=== PATIENT | male | born 1935 | race Caucasian/White ===

== ENCOUNTER 2016-07-11 18:36 | Emergency (ER) | payer MEDICARE, MEDICAID ==
[~2016-07-11] VITALS: Ht 182.9 cm; Wt 81.6 kg
[~2016-07-11 18:36] MED LIST: ACYC800T57 PO; AMLO10TA PO; AMLO5TAB2 PO; ASP81TEC PO; ASPI-241 PO; ASPI-624 PO; ASPI-875 PO; ASPI325T32 PO; AZIT-21 PO; BETHANECHOL; CEFU250T11 PO; CLOP75TA; CLOP75TA PO; CLOT15CR4 TOP; CYCL5TAB11 PO; DEPAKOTE; DOXY100C2 PO; ECON30CR9 TP; ENXP40I.4 SQ; EXELON; FAMO20TA5 PO; FLOMAX; FRSM40T PO; FURO40TA PO; FURO40TA4 PO; HYDR-1231 PO; HYDR-3583 PO; HYDR1TAB86 PO; ISM30TCR PO; ISOS30TA3 PO; LASIX; LEVO500T69 PO; LOVA40TA2 PO; LRT10T PO; MELATONIN; METO25TA2 PO; NAMENDA; NAPR-243 PO; OMEP-10 PO; ONDAN4ODT PO; PNT40TEC PO; POTA10CA43 PO; POTA10TA86 PO; POTA20TA15 PO; PRD20T PO; PROP1TAB77 PO; RIVA20TA2 PO; SERT25TA PO; SULF-222 PO; SULF1TAB38 PO; TOBRAMYCIN; TRAM50TA2 PO; TRAMADOL; TRM50T PO; [UNRECOGNIZED DRUG - OTHER]
--- OUTSIDE RECORDS SUMMARY | 2016-07-11 18:40 | XMS REPORT | Continuity of Care Document ---
Author Author [facility] Organization [facility] Address Unknown Phone Unavailable Care Team Providers Care Veneer Taper Name Role Phone Gigi Sullivan PCP [phone] Source Comments Some departments are not documenting in the electronic medical record. If you do not see the information that you expected, contact Release of Information in the Health Information Management department at [phone] for further assistance in locating additional records.[facility] Active Allergies and Adverse Reactions Not on File Current Medications Not on file Active Problems Not on file Social History Tobacco Use Types Packs/Day Years Used Date Never Assessed Plan of Care Health Maintenance Due Date Last Done Comments Physical (Comprehensive) 1944 Exam Pertussis Vaccine 1948 Tetanus Vaccine 1954 Shingles Vaccine 1997 Prevnar/Pneumovax (#1) 2002 Influenza Vaccine 02/10/2015 Results from Last 3 Months Not on file
[2016-07-11] MEDS ORDERED: NS IV 1000 ML 1,000 ML IV ONE (18:52)
[2016-07-11 18:53] LABS: BASOPHILS % (AUTO) 0 % (0-10); EOSINOPHILS # (AUTO) 0.4 10^3/uL (0.0-0.3); EOSINOPHILS % (AUTO) 5 % (0-10); LYMPHOCYTES # (AUTO) 2.6 X 10^3 (1.0-4.0); LYMPHOCYTES % (AUTO) 32 % (12-44); MEAN CORPUSCULAR HEMOGLOBIN 31 PG (25-34); MEAN CORPUSCULAR HGB CONC 34 G/DL (32-36); MEAN CORPUSCULAR VOLUME 91 FL (80-99); MEAN PLATELET VOLUME 11.6 FL (7.4-10.4); MONOCYTES # (AUTO) 0.9 X 10^3 (0.0-1.0); MONOCYTES % (AUTO) 11 % (0-12); NEUTROPHILS # (AUTO) 4.3 X 10^3 (1.8-7.8); NEUTROPHILS % (AUTO) 53 % (42-75); PLATELET COUNT 212 10^3/uL (130-400); RED BLOOD COUNT 5.02 10^6/uL (4.35-5.85); RED CELL DISTRIBUTION WIDTH 13.7 % (10.0-14.5); WHITE BLOOD COUNT 8.1 10^3/uL (4.3-11.0)
--- NOTE | 2016-07-11 19:44 | Diagnostic Imaging Report ---
INDICATION: Arm pain, shaking. COMPARISON: March 10, 2016. TECHNIQUE: Single frontal radiograph of the chest dated July 11, 2016. FINDINGS: Pacer device is present with the battery pack overlying the left chest. The cardiac silhouette is within normal limits. No significant pulmonary vascular congestion. Background senescent changes of the lungs are again identified without focal pulmonary opacity. No pleural effusion. No pneumothorax. No acute osseous abnormality. IMPRESSION: Stable appearing examination without acute cardiopulmonary abnormality. Dictated by: Dictated on workstation # [id number]
[2016-07-11 20:00] LABS: INR 1.6 (0.8-1.4); PROTHROMBIN TIME PATIENT 18.9 SEC (12.2-14.7)
[2016-07-11 20:08] LABS: ALANINE AMINOTRANSFERASE 13 U/L (0-55); ALBUMIN 3.9 G/DL (3.2-4.5); ANION GAP 12 MMOL/L (5-14); ASPARTATE AMINO TRANSFERASE 18 U/L (5-34); BILIRUBIN,TOTAL 0.4 MG/DL (0.1-1.0); BLOOD UREA NITROGEN 17 MG/DL (7-18); BUN/CREATININE RATIO 23; CALCIUM 8.5 MG/DL (8.5-10.1); CARBON DIOXIDE 24 MMOL/L (21-32); CHLORIDE 107 MMOL/L (98-107); CREATININE SERUM 0.75 MG/DL (0.60-1.30); GFR ESTIMATED > 60; GLUCOSE 105 MG/DL (70-105); MAGNESIUM 2.2 MG/DL (1.8-2.4); POTASSIUM 4.2 MMOL/L (3.6-5.0); SODIUM 143 MMOL/L (135-145); TOTAL PROTEIN 7.2 G/DL (6.4-8.2)
[2016-07-11 20:09] LABS: hs C REACTIVE PROTEIN 0.24 MG/DL (0.00-0.50)
[2016-07-11 20:15] LABS: MYOGLOBIN SERUM 54.2 NG/ML (10.0-92.0)
[2016-07-11 20:39] LABS: BILIRUBIN,URINE NEGATIVE (NEGATIVE); KETONES,URINE 1+ (NEGATIVE); LEUKOCYTE ESTERASE ,URINE 1+ (NEGATIVE); NITRITE,URINE NEGATIVE (NEGATIVE); PH,URINE 7 (5-9); PROTEIN,URINE NEGATIVE (NEGATIVE); UROBILINOGEN,URINE 4 MG/DL (NORMAL)
--- NOTE | 2016-07-11 21:22 | ED General ---
General Chief Complaint: General Problems/Pain Stated Complaint: SHOULDER AND ARM PAIN Nursing Triage Note: PT TO ED 6 PER EMS W/ C/O SHAKING ALL OVER ET BODY FEELING HEAVY. EMS REPORTS THEY WERE CALLED TO PTS HOME FOR CP BUT PT DENIES CP AT THIS TIME. Nursing Sepsis Screen: No Definite Risk Source of Information: Patient, EMS, Old Records Exam Limitations: No Limitations History of Present Illness Time Seen by Provider: 18:42 Initial Comments This 81-year-old gentleman presents to the emergency room via EMS. The initial call was for chest pain but patient actually denies chest pain. He reports having aches in his shoulders, arms, and legs. EMS reports that he had tremors and was extremely diaphoretic, soaking through his clothes. Patient has a history of paroxysmal atrial fibrillation and has a pacemaker. He reports having some hot and cold flashes about one hour prior to arrival. He has had some remote chest pain months ago. 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 This is a long-standing problem. His primary care provider is Dr. Webb and in his skin care therapist is Dr. Valadez. EMS reported patient was living in deplorable conditions. Allergies and Home Medications Allergies Coded Allergies: No Known Drug Allergies (Unverified , 06/20/13) Home Medications (Reported) (Reported) (Reported) (Reported) (Reported) (Reported) (Reported) (Reported) (Reported) Aspirin 81 Mg Tablet.dr 81 MG PO DAILY (Reported) Econazole Nitrate 30 Gm Cream.gm. 10Days 30 GM TP BID Prescribed by: KATIE FARMER on 06/07/14 1420 Furosemide 40 Mg Tablet 40 MG PO DAILY (Reported) Sertraline HCl 25 Mg Tablet 25 MG PO HS (Reported) Constitutional: see HPI EENTM: no symptoms reported Respiratory: no symptoms reported Cardiovascular: see HPI Gastrointestinal: no symptoms reported Genitourinary: no symptoms reported Musculoskeletal: see HPI Skin: see HPI Psychiatric/Neurological: No Symptoms Reported Past Lykyifj-Upuazo-Jzcxkg Hx Patient Social History Alcohol Use: Denies Use Recreational Drug Use: No Smoking Status: Former Smoker Type Used: Cigarettes Recent Foreign Travel: No Contact w/Someone Who Travel: No Recent Infectious Disease Expo: No Recent Hopitalizations: No Immunizations Up To Date Tetanus Booster (TDap): Unknown Seasonal Allergies Seasonal Allergies: Yes Surgeries HX Surgeries: Yes (RT HIP) Surgeries: Defibrillator, Orthopedic, Pacemaker Respiratory Hx Respiratory Disorders: Yes (CHRONIC DYSPNEA ON EXERTION) Cardiovascular Hx Cardiac Disorders: Yes (Pacemaker/Defibrillator, STENTS, CHF) Cardiac Disorders: Atrial Fibrillation (Paroxysmal), Chronic Edema/Swelling, Coronary Artery Disease Neurological Hx Neurological Disorders: Yes (POSSIBLE STROKE OR TIA ACCORDING TO DAUGHTER) Neurological Disorders: Dementia Reproductive System Hx Reproductive Disorders: No Genitourinary Hx Genitourinary Disorders: Yes (urinary frequency) Genitourinary Disorders: Prostate Problems Gastrointestinal Hx Gastrointestinal Disorders: Yes Gastrointestinal Disorders: Gastroesophageal Reflux Musculoskeletal Hx Musculoskeletal Disorders: Yes (CHRONIC LEG PAIN R>L) Musculoskeletal Disorders: Fractures Endocrine Hx Endocrine Disorders: No HEENT HX ENT Disorders: No Cancer Hx Cancer: No Psychosocial Hx Psychiatric Problems: Yes Behavioral Health Disorders: Depression Integumentary HX Skin/Integumentary Disorder: Yes (SHINGLES RIGHT LEG) Blood Transfusions Hx Blood Disorders: No Adverse Reaction to a Blood Tr: No Family Medical History Significant Family History: Heart Disease, Diabetes Family Medial History: Family history: Cardiovascular disease 09 BROTHER (60 ) Family history: Diabetes mellitus 03 FATHER 09 BROTHER 09 BROTHER Family history: Hypertension 09 SISTER 09 SISTER Stroke 09 SISTER (61 ) Tuberculosis 03 FATHER (67) Physical Exam Vital Signs Vital Sign - Last 12Hours 07/11/16 18:36 Temp 96.5 Pulse 82 Resp 20 B/P 129/88 Pulse Ox 92 O2 Delivery Room Air Capillary Refill : Less Than 3 Seconds General Appearance: No Apparent Distress WD/WN HEENT: PERRL/EOMI Normal ENT Inspection Neck: Normal Inspection Respiratory: Lungs Clear Normal Breath Sounds No Accessory Muscle Use No Respiratory Distress Cardiovascular: No Edema No Murmur Irregularly Irregular Gastrointestinal: Normal Bowel Sounds Non Tender Soft Extremity: Other (Swelling and contractures of the left hand) Neurologic/Psychiatric: Alert Oriented x3 Normal 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 Norm as Tested Motor Weakness (Generalized, more so in the lower extremities) Skin: Normal Color Diaphoresis Progress/Results/Core Measures Results/Orders Lab Results Laboratory Tests Test 07/11/16 18:36 07/11/16 19:34 07/11/16 20:17 07/11/16 21:28 Range/Units Basophils # (Auto) 0.0 0.0-0.1 10^3/uL Basophils (%) (Auto) 0 0-10 % Eosinophils # (Auto) 0.4 H 0.0-0.3 10^3/uL Eosinophils (%) (Auto) 5 0-10 % Hematocrit 46 40-54 % Hemoglobin 15.4 13.3-17.7 G/DL Lymphocytes # (Auto) 2.6 1.0-4.0 X 10^3 Lymphocytes (%) (Auto) 32 12-44 % Mean Corpuscular Hemoglobin 31 25-34 PG Mean Corpuscular Hemoglobin Concent 34 32-36 G/DL Mean Corpuscular Volume 91 80-99 FL Mean Platelet Volume 11.6 H 7.4-10.4 FL Monocytes # (Auto) 0.9 0.0-1.0 X 10^3 Monocytes (%) (Auto) 11 0-12 % Neutrophils # (Auto) 4.3 1.8-7.8 X 10^3 Neutrophils (%) (Auto) 53 42-75 % Platelet Count 212 130-400 10^3/uL Red Blood Count 5.02 4.35-5.85 10^6/uL Red Cell Distribution Width 13.7 10.0-14.5 % White Blood Count 8.1 4.3-11.0 10^3/uL Activated Partial Thromboplast Time 57 H 24-35 SEC Alanine Aminotransferase (ALT/SGPT) 13 0-55 U/L Albumin 3.9 3.2-4.5 G/DL Alkaline Phosphatase 83 40-136 U/L Anion Gap 12 5-14 MMOL/L Aspartate Amino Transf (AST/SGOT) 18 5-34 U/L BUN/Creatinine Ratio 23 Blood Urea Nitrogen 17 7-18 MG/DL C-Reactive Protein High Sensitivity 0.24 0.00-0.50 MG/DL Calcium Level 8.5 8.5-10.1 MG/DL Carbon Dioxide Level 24 21-32 MMOL/L Chloride Level 107 98-107 MMOL/L Creatinine 0.75 0.60-1.30 MG/DL Estimat Glomerular Filtration Rate > 60 Glucose Level 105 70-105 MG/DL INR Comment 1.6 H 0.8-1.4 Lactic Acid Level 2.6 *H 1.5 0.5-2.0 MMOL/L Magnesium Level 2.2 1.8-2.4 MG/DL Myoglobin 54.2 10.0-92.0 NG/ML Potassium Level 4.2 3.6-5.0 MMOL/L Prothrombin Time 18.9 H 12.2-14.7 SEC Sodium Level 143 135-145 MMOL/L Total Bilirubin 0.4 0.1-1.0 MG/DL Total Creatine Kinase 43 30-200 U/L Total Protein 7.2 6.4-8.2 G/DL Troponin I < 0.30 <0.30 NG/ML Urine Bacteria NONE /HPF Urine Bilirubin NEGATIVE NEGATIVE Urine Casts NONE /LPF Urine Clarity CLEAR Urine Color DARK YELLOW Urine Crystals NONE /LPF Urine Culture Indicated NO Urine Glucose (UA) NEGATIVE NEGATIVE Urine Ketones 1+ H NEGATIVE Urine Leukocyte Esterase 1+ H NEGATIVE Urine Mucus SMALL H /LPF Urine Nitrite NEGATIVE NEGATIVE Urine Protein NEGATIVE NEGATIVE Urine RBC 5-10 H /HPF Urine RBC (Auto) 2+ H NEGATIVE Urine Specific [place] 1.010 L 1.016-1.022 Urine Urobilinogen 4 H NORMAL MG/DL Urine WBC 2-5 /HPF Urine pH 7 5-9 Micro Results Microbiology 07/11/16 Blood Culture - Preliminary, Resulted No growth 07/11/16 Blood Culture - Preliminary, Resulted No growth 07/11/16 Influenza Types A,B Antigen (KIEL) - Final, Complete My Orders Orders-TY CASTELLANOS MD Cbc With Automated Diff (07/11/16 18:44) Magnesium (07/11/16 18:44) Chest 1 View, Ap/Pa Only (07/11/16 18:44) Ekg Tracing (07/11/16 18:44) Cardiac Profile 1 (07/11/16 18:44) Comprehensive Metabolic Panel (07/11/16 18:44) Myoglobin Serum (07/11/16 18:44) Protime With Inr (07/11/16 18:44) Partial Thromboplastin Time (07/11/16 18:44) O2 (07/11/16 18:44) Monitor-Rhythm Ecg Trace Only (07/11/16 18:44) Saline Lock/Iv-Start (07/11/16 18:44) Creatine Kinase (07/11/16 18:44) Hs C Reactive Protein (07/11/16 18:52) Ua Culture If Indicated (07/11/16 18:52) Blood Culture (07/11/16 18:52) Influenza A And B Antigens (07/11/16 18:52) Lactic Acid Analyzer (07/11/16 18:52) [place] Cath Insertion (07/11/16 18:52) Ns Iv 1000 Ml (Sodium Chloride 0.9%) (07/11/16 18:52) Medications Given in ED Vital Signs/I&O Blood Pressure Mean: 102 Progress Note : Progress Note Workup was unremarkable and patient was feeling fairly well prior to dismissal. A liter of IV fluids was administered. Patient is functionally not very capable and EMS reported his living conditions were deplorable. Patient would probably be a candidate for placement in a care facility. ECG Initial ECG Impression Date: Jul 11, 2016 Initial ECG Impression Time: 18:56 Initial ECG Rate: 80 Initial ECG Rhythm: A Fib/Flutter Comment Artifact confounds reading. Heart rate is around 80. No ST elevation or depression. Rhythm appears atrial fibrillation. Diagnostic Imaging Diagonstic Imaging: Xray Plain Films/CT/US/NM/MRI: chest Comments Chest x-ray viewed by me and report reviewed. See report below: NAME: NEEL ESQUIVEL [employer] REC#: [id number] PT STATUS: REG ER : 1935 PHYSICIAN: TY CASTELLANOS MD ADMIT DATE: 07/11/16/ER Signed Date of Exam: 07/11/16 CHEST 1 VIEW, AP/PA ONLY INDICATION: Arm pain, shaking. COMPARISON: March 10, 2016. TECHNIQUE: Single frontal radiograph of the chest dated July 11, 2016. FINDINGS: Pacer device is present with the battery pack overlying the left chest. The cardiac silhouette is within normal limits. No significant pulmonary vascular congestion. Background senescent changes of the lungs are again identified without focal pulmonary opacity. No pleural effusion. No pneumothorax. No acute osseous abnormality. IMPRESSION: Stable appearing examination without acute cardiopulmonary abnormality. Dictated by: Dictated on workstation # [id number] Dict: 07/11/161935 Trans: 07/11/162247 [id number] Interpreted by: BETI NGUYỄN MD Electronically signed by:BETI NGUYỄN MD 07/11/16 5302 Departure Impression Impression: Primary Impression: Diaphoresis Additional Impression: Myalgia Disposition: HOME, SELF-CARE Condition: Improved Departure-Patient Inst. Decision time for Depature: 21:00 Referrals: DEBBI WEBB MD (PCP/Family) Primary Care Physician Patient Instructions: NO INSTRUCTIONS GIVEN Add. Discharge Instructions: Follow-up with your primary care provider soon as possible. Stay well- hydrated. Return to emergency room if symptoms worsen. All discharge instructions reviewed with patient and/or family. Voiced understanding. Copy Copies To 1: DEBBI WEBB MD, JOSHUA T MD Jul 11, 2016 21:22
[2016-07-11 22:00] VITALS: BP 143/86
== END 2016-07-11 22:00 | disposition home or self-care (01) ==
LOC: EDUNIT# 18:36 → ER 18:37
DX: R61 Generalized hyperhidrosis (principal); M79.1 Myalgia; I25.10 Atherosclerotic heart disease of native coronary artery without angina pectoris; F03.90 Unspecified dementia, unspecified severity, without behavioral disturbance, psychotic disturbance, mood disturbance, and anxiety; Z95.0 Presence of cardiac pacemaker
CPT/HCPCS: 36415; 71010; 80053; 81000; 82550; 83605; 83735; 83874; 84484; 85025; 85610; 85730; 86141; 87040; 87804; 93005; 96360

== ENCOUNTER 2018-08-07 11:05 | Outpatient (CLI) | payer MEDICARE, MEDICAID ==
[~2018-08-07] VITALS: Ht 182.9 cm; Wt 81.6 kg
[2018-08-07 11:15] VITALS: BP 109/66
[2018-08-07] MEDS ORDERED: WATER (STERILE) FOR INJECTION 10 ML ONE (12:24)
[2018-08-07] MEDS ORDERED: cefTRIAXone 1,000 MG IV (ROCEPHIN) VIAL ONE (12:24)
[2018-08-07] MEDS ORDERED: cefTRIAXone FOR IV USE 1,000 MG in WATER (STERILE) FOR INJECTION 10 ML IV ONE (12:45)
== END 2018-08-07 12:55 | disposition home or self-care (01) ==
LOC: SDC 11:05
PROVIDERS: ATTEND Internal Medicine
DX: N39.0 Urinary tract infection, site not specified (principal)
CPT/HCPCS: 76937; 96374

== ENCOUNTER → 2018-08-07 | Outpatient (CLI) | payer MEDICARE, MEDICAID ==
--- NOTE | 2018-08-07 11:26 | Diagnostic Imaging Report ---
PROCEDURE: US Abdomen, limited. TECHNIQUE: Multiple realtime grayscale images were obtained over the abdomen in various projections. INDICATION: BPH and urinary retention. FINDINGS: The prevoid bladder volume is 127.6 cc. Postvoid bladder volume is 9.5 cc. Neither ureteral jet was visualized. Bladder is otherwise normal in appearance. IMPRESSION: Small post void residual bladder volume, otherwise unremarkable. Dictated by: Dictated on workstation # [id number]
== END ==
LOC: RAD 10:00
PROVIDERS: ATTEND Internal Medicine
DX: N40.0 Benign prostatic hyperplasia without lower urinary tract symptoms (principal); R33.9 Retention of urine, unspecified
CPT/HCPCS: 76705

== ENCOUNTER → 2018-09-06 | Outpatient (CLI) | payer MEDICARE, MEDICAID | LOC: RAD 10:21 | PROVIDERS: ATTEND Internal Medicine Cardiovascular Disease | DX: I08.1 Rheumatic disorders of both mitral and tricuspid valves (principal); I73.9 Peripheral vascular disease, unspecified; I48.2 Chronic atrial fibrillation; E78.2 Mixed hyperlipidemia; I10 Essential (primary) hypertension; I25.10 Atherosclerotic heart disease of native coronary artery without angina pectoris | CPT/HCPCS: 93306 ==

== ENCOUNTER → 2018-09-19 | Outpatient (CLI) | payer MEDICARE, MEDICAID ==
--- NOTE | 2018-09-19 16:40 | Diagnostic Imaging Report ---
PROCEDURE: CT abdomen and pelvis without contrast. TECHNIQUE: Multiple contiguous axial images were obtained through the abdomen and pelvis without the use of intravenous contrast. Auto Exposure Controls were utilized during the CT exam to meet ALARA standards for radiation dose reduction. INDICATION: Gross hematuria and back pain. COMPARISON: Comparison limited to overlapped images of the upper abdomen obtained at chest CT performed in 2009. FINDINGS: An elongated stone within the right lower pole calyx measured 5.4 mm in length. There is no hydronephrosis. Pelvic detail limited by artifact from right hip prosthesis. A right hemipelvic calcification could be phlebolith or distal right ureteral stone as seen on axial image 73 series 5. This indeterminate calcification measured 2.1 mm. There is no hydroureteronephrosis. No perinephric or periureteric edema. The left kidney is unobstructed and without stone. There is a small exophytic cyst off the lower pole of the right kidney measuring 1 cm. The appendix visualized and is normal. There is no small or large bowel obstruction. No ascites, abscess, hematoma, or other fluid collection. No pneumatosis or free gas. Pancreatic calcifications are most compatible with the sequelae of prior pancreatitis. Some benign scattered hepatosplenic calcified granulomas as well. There are aortoiliac and mesenteric atherosclerotic vascular calcifications without aneurysm. No findings suggestive of end-organ ischemia. The lumbar spine reveals degenerative changes to the discs, endplates, and facets without fracture, malalignment, or acute abnormality. The pelvic osseous structures are nonacute. No abdominal wall defect or hernia. The lung bases are unremarkable. IMPRESSION: 1. Intrarenal calculus in the lower pole calyx on the right. No hydronephrosis. Exophytic renal cortical cysts noted. Right pelvic calcification, indeterminate phlebolith versus distal ureteral stone. No ureteral or collecting system dilatation, however. 2. Normal appendix. Chronic calcifications distributed as described. No focal inflammatory process, ascites, or fluid collection. Dictated by: Dictated on workstation # [id number]
== END ==
LOC: RAD 14:18
PROVIDERS: ATTEND Internal Medicine
DX: N20.0 Calculus of kidney (principal); N28.1 Cyst of kidney, acquired; Z96.641 Presence of right artificial hip joint
CPT/HCPCS: 74176

== ENCOUNTER → 2019-04-08 | Outpatient (CLI) | payer MEDICARE, MEDICAID ==
[~2019-04-08] VITALS: Ht 183 cm; Wt 82.0 kg
[~2019-04-08] MED LIST changes: +REGADENOSON 0.4 MG/5 ML SYR (LEXISCAN) IV ONE
[2019-04-08] MEDS: CATHETER FLUSH 10 ML SYR IV PRN ×2 (09:17→09:54)
[2019-04-08 09:52] VITALS: BP 130/82
--- NOTE | 2019-04-08 12:48 | Diagnostic Imaging Report ---
PROCEDURE: US carotid duplex, bilateral. TECHNIQUE: Multiple real-time grayscale images were obtained over the carotid arteries in various projections, bilaterally. Additional spectral analysis and color Doppler duplex images were also obtained. INDICATION: Coronary artery disease and atrial fibrillation. FINDINGS: There is mild plaquing noted at the carotid bifurcations bilaterally extending into the proximal internal carotid arteries. The velocities are normal bilaterally. No velocity elevation or stenosis is seen. Both vertebral arteries show antegrade flow. IMPRESSION: Mild bilateral carotid plaque. There is no evidence of a hemodynamically significant stenosis. Parameters based on the consensus panel Lopez-Scale and Doppler ultrasound criteria published April 2003, Radiology, Volume 229. DOPPLER (peak systolic velocity M/S Right Left CCA 1.04 .68 ICA Proximal .80 .55 ICA Mid .90 .60 ICA Distal .69 .77 RATIO .90 1.1 ECA .93 .89 VERT .63 .53 Dictated by: Dictated on workstation # [id number]
--- NOTE | 2019-04-08 13:05 | STRESS TEST ---
DATE OF SERVICE: 04/08/2019 LEXISCAN MYOVIEW STRESS TEST REPORT Baseline heart rate is 63. Baseline blood pressure 138/90. Baseline EKG is sinus is atrial fibrillation with left bundle branch block. In summary, the patient was injected with 10.58 mCi of technetium-99 Myoview and the resting images were obtained. Then, the patient received 0.4 mg of Lexiscan followed by 32.1 mCi of technetium-99 Myoview. Throughout the test, there were no EKG changes. The resting and stress images were reviewed and compared in the short axis, horizontal long axis, and vertical long axis views. Review of the images showed no significant ischemia or infarction. SSS is 2, SDS 0. TID value 1.09. On the gated images, the left ventricle appeared to be normal size with hypokinesia of the inferior wall, gated images are unreliable due to underlying atrial fibrillation and left bundle branch block. Calculated ejection fraction 44%. CONCLUSION: 1. The patient tolerated Lexiscan well. 2. Baseline atrial fibrillation persisted during test. 3. No significant ischemia or infarction on SPECT images. 4. Normal left ventricular size with hypokinesia of the inferior wall and inferior apex and inferoseptum, calculated ejection fraction 44%, gated images are unreliable due to underlying atrial fibrillation. Job ID: [id number] DocumentID: [id number] Dictated Date: 04/08/2019 11:29:43 Clerk Specialist Date: 04/08/2019 13:04:22 Dictated By: MINDI MCKAY MD
== END ==
LOC: CARD 08:58
PROVIDERS: ATTEND Physician Assistant
DX: I65.23 Occlusion and stenosis of bilateral carotid arteries (principal); I48.91 Unspecified atrial fibrillation; I25.10 Atherosclerotic heart disease of native coronary artery without angina pectoris; I10 Essential (primary) hypertension; E78.2 Mixed hyperlipidemia
CPT/HCPCS: 78452; 93017; 93880

== ENCOUNTER 2019-04-11 17:59 | Inpatient (IN) | payer MEDICARE, MEDICAID ==
[2019-04-11] VITALS (7 sets, daily range): BP systolic 86–144; BP diastolic 57–80
[~2019-04-11] VITALS: Ht 177 cm; Wt 83.4 kg
[~2019-04-11 17:59] MED LIST changes: -REGADENOSON 0.4 MG/5 ML SYR (LEXISCAN) IV ONE
[2019-04-11] MEDS ORDERED: NS IV 1000 ML 1,000 ML ONE (18:15)
[2019-04-11] MEDS ORDERED: NS IV 1000 ML 1,000 ML IV SCH ×4 (18:15→23:30)
--- NOTE | 2019-04-11 18:18 | ED General ---
General Stated Complaint: ALTERED MENTAL STATUS Source of Information: Patient Exam Limitations: No Limitations (KATIE FARMER APRN) History of Present Illness Date Seen by Provider: Apr 11, 2019 Time Seen by Provider: 18:17 Initial Comments To ER per EMS from home in [place] with reports of altered mental status. Upon EMS arrival he was found to be covered in fecal matter, c/o neck pain and abdominal pain. blood pressure in the 80s and temperature also in the 87 range. Timing/Duration: 12-24 Hours Severity: Moderate Associated Systoms: Weakness (KATIE FARMER APRN) Allergies and Home Medications Allergies Coded Allergies: No Known Drug Allergies (Unverified , 06/20/13) Home Medications Aspirin 81 Mg Tablet.dr, 81 MG PO DAILY, (Reported) Econazole Nitrate 30 Gm Cream.gm., 30 GM TP BID Prescribed by: KATIE FARMER on 06/07/14 1420 Furosemide 40 Mg Tablet, 40 MG PO DAILY, (Reported) Sertraline HCl 25 Mg Tablet, 25 MG PO HS, (Reported) Patient Home Medication List Home Medication List Reviewed: Yes (KATIE FARMER APRN) Review of Systems Review of Systems Constitutional: see HPI, other (to obtain due to altered mental status) EENTM: see HPI Respiratory: no symptoms reported Cardiovascular: no symptoms reported Genitourinary: no symptoms reported Musculoskeletal: no symptoms reported Skin: no symptoms reported Psychiatric/Neurological: No Symptoms Reported Hematologic/Lymphatic: No Symptoms Reported Immunological/Allergic: no symptoms reported (KATIE FARMER APRN) Past Xgxcbmm-Xwkinu-Fehqux Hx Patient Social History Type Used: Cigarettes Former Smoker, Quit: Feb 10, 2011 Recent Hopitalizations: No (KATIE FARMER APRN) Immunizations Up To Date Tetanus Booster (TDap): Unknown (KATIE FARMER APRN) Seasonal Allergies Seasonal Allergies: Yes (KATIE FARMER APRN) Past Medical History Defibrillator, Orthopedic, Pacemaker Atrial Fibrillation, Chronic Edema/Swelling, Coronary Artery Disease Dementia Reproductive Disorders: No Prostate Problems Gastroesophageal Reflux Fractures Depression Adverse Reaction/Blood Tranf: No (KATIE FARMER APRN) Family Medical History Family history: Cardiovascular disease 09 BROTHER (60 ) Family history: Diabetes mellitus 03 FATHER 09 BROTHER 09 BROTHER Family history: Hypertension 09 SISTER 09 SISTER Stroke 09 SISTER (61 ) Tuberculosis 03 FATHER (67) Heart Disease, Diabetes (KATIE FARMER APRN) Physical Exam Vital Signs Vital Signs - First Documented 04/11/19 04/11/19 04/11/19 18:59 19:41 19:48 Temp 33.4 Pulse 100 Resp 24 B/P (MAP) 75/50 (58) Pulse Ox 98 O2 Delivery OxyMask O2 Flow Rate 10.00 (VITA CUEVAS) Vital Signs Capillary Refill : (KATIE FARMER APRN) Height, Weight, BMI Height: 6'0.00" Weight: 180lbs. 0.0oz. 81.367843cw; 24.48 BMI Method:Stated General Appearance: WD/WN, Other (confused but alert, repetitively states "just leave me alone". Cold to the touch, not hypotensive here, initial blood pressure 123/68, heart rate 74. He is in fact covered in fecal matter) Eyes: Bilateral Eye Normal Inspection, Bilateral Eye PERRL, Bilateral Eye EOMI HEENT: PERRL/EOMI, TMs Normal Respiratory: No Accessory Muscle Use, No Respiratory Distress Cardiovascular: Regular Rate, Rhythm, Normal Peripheral Pulses Gastrointestinal: Normal Bowel Sounds, Non Tender, Soft Extremity: Normal Capillary Refill, Normal Inspection Neurologic/Psychiatric: Alert, Oriented x3 Skin: Normal Color, Warm/Dry (KATIE FARMER APRN) Focused Exam Lactate Level 04/11/19 18:30: Lactic Acid Level 13.55*H (VITA CUEVAS) Lactic Acid Level Laboratory Tests Test 04/11/19 18:30 Lactic Acid Level 13.55 MMOL/L (0.50-2.00) *H (VITA CUEVAS) Procedures/Interventions Lumen: triple Central Line Procedure: betadine prep, sterile drapes applied, sterile dressing applied Position: internal jugular (R) Anesthesia: local (they were called except for some) Complications: none Post Position: sutured, good blood return, position confirmed w/ CXR (KATIE FARMER APRN) Care turned over to: Central line placement was questioned and displaced so blood pressure was held over the site and then we repeated the procedure. We clean the site with chlorhexidine, use the usual sterile raking and 2 cc of lidocaine. The abdomen central line introducer needle was observed passing into the right internal jugular under ultrasound guidance. We had good blood return. A guidewire was easily passed on first attempt. The hole was enlarged using the provided 11 blade scalpel by about 2 mm. We then passed the dilator easily. We then passed the central lumen of the triple lumen 20 cm 7 Hungarian central catheter and stitch ed in place in 3 different places. The Biopatch was placed. The guidewire had been removed. The patient tolerates procedure well. A sterile dressing was placed. X-ray was obtained. (VITA CUEVAS) Progress/Results/Core Measures Suspected Sepsis SIRS Temperature: Pulse: Respiratory Rate: Laboratory Tests 04/11/19 18:00: White Blood Count 19.5H Blood Pressure / Mean: 04/11/19 18:30: Lactic Acid Level 13.55*H Laboratory Tests 04/11/19 18:00: Creatinine 1.78H, INR Comment 1.7H, Platelet Count 292, Total Bilirubin 0.5 (KATIE FARMER APRN) Results/Orders Lab Results Laboratory Tests Test 04/11/19 18:00 04/11/19 18:30 Range/Units White Blood Count 19.5 H 4.3-11.0 10^3/uL Red Blood Count 4.92 4.35-5.85 10^6/uL Hemoglobin 15.0 13.3-17.7 G/DL Hematocrit 46 40-54 % Mean Corpuscular Volume 93 80-99 FL Mean Corpuscular Hemoglobin 31 25-34 PG Mean Corpuscular Hemoglobin Concent 33 32-36 G/DL Red Cell Distribution Width 13.0 10.0-14.5 % Platelet Count 292 130-400 10^3/uL Mean Platelet Volume 10.6 H 7.4-10.4 FL Neutrophils (%) (Auto) 78 H 42-75 % Lymphocytes (%) (Auto) 14 12-44 % Monocytes (%) (Auto) 8 0-12 % Eosinophils (%) (Auto) 1 0-10 % Basophils (%) (Auto) 0 0-10 % Neutrophils # (Auto) 15.1 H 1.8-7.8 X 10^3 Lymphocytes # (Auto) 2.7 1.0-4.0 X 10^3 Monocytes # (Auto) 1.6 H 0.0-1.0 X 10^3 Eosinophils # (Auto) 0.1 0.0-0.3 10^3/uL Basophils # (Auto) 0.0 0.0-0.1 10^3/uL Neutrophils % (Manual) 53 % Lymphocytes % (Manual) 25 % Monocytes % (Manual) 8 % Eosinophils % (Manual) 1 % Band Neutrophils 13 % Toxic Granulation 1+ Blood Morphology Comment NORMAL Prothrombin Time 20.5 H 12.2-14.7 SEC INR Comment 1.7 H 0.8-1.4 Activated Partial Thromboplast Time 57 H 24-35 SEC Sodium Level 146 H 135-145 MMOL/L Potassium Level 3.3 L 3.6-5.0 MMOL/L Chloride Level 102 98-107 MMOL/L Carbon Dioxide Level 14 L 21-32 MMOL/L Anion Gap 30 H 5-14 MMOL/L Blood Urea Nitrogen 22 H 7-18 MG/DL Creatinine 1.78 H 0.60-1.30 MG/DL Estimat Glomerular Filtration Rate 37 BUN/Creatinine Ratio 12 Glucose Level 291 H 70-105 MG/DL Calcium Level 9.7 8.5-10.1 MG/DL Corrected Calcium 9.3 8.5-10.1 MG/DL Total Bilirubin 0.5 0.1-1.0 MG/DL Aspartate Amino Transf (AST/SGOT) 21 5-34 U/L Alanine Aminotransferase (ALT/SGPT) 8 0-55 U/L Alkaline Phosphatase 96 40-136 U/L Total Protein 8.5 H 6.4-8.2 GM/DL Albumin 4.5 3.2-4.5 GM/DL Urine Color YELLOW Urine Clarity CLEAR Urine pH 6 5-9 Urine Specific [place] 1.010 L 1.016-1.022 Urine Protein 1+ H NEGATIVE Urine Glucose (UA) NEGATIVE NEGATIVE Urine Ketones NEGATIVE NEGATIVE Urine Nitrite NEGATIVE NEGATIVE Urine Bilirubin NEGATIVE NEGATIVE Urine Urobilinogen NORMAL NORMAL MG/DL Urine Leukocyte Esterase NEGATIVE NEGATIVE Urine RBC (Auto) 1+ H NEGATIVE Urine RBC 2-5 H /HPF Urine WBC 0-2 /HPF Urine Renal Epithelial Cells RARE /HPF Urine Crystals NONE /LPF Urine Bacteria TRACE /HPF Urine Casts NONE /LPF Urine Mucus NEGATIVE /LPF Urine Culture Indicated CULTURE PENDING Lactic Acid Level 13.55 *H 0.50-2.00 MMOL/L (VITA CUEVAS) My Orders Orders - VITA CUEVAS Chest 1 View, Ap/Pa Only (04/11/19 20:23) (VITA CUEVAS Vital Signs/I&O 04/11/19 04/11/19 04/11/19 18:59 19:41 19:48 Temp 33.4 Pulse 100 Resp 24 22 B/P (MAP) 75/50 (58) 101/77 (85) Pulse Ox 98 O2 Delivery OxyMask O2 Flow Rate 10.00 (VITA CUEVAS) Vital Signs/I&O Capillary Refill : (KATIE FARMER APRN) Diagnostic Imaging Diagonstic Imaging: Xray, CT Comments NAME: NEEL ESQUIVEL [facility] REC#: [id number] PT STATUS: REG ER : 1935 PHYSICIAN: KATIE FARMER APRN ADMIT DATE: 04/11/19/ER Signed POSDate of Exam:04/11/19 CT CHEST/ABDOMEN/PELVIS WO PROCEDURE: CT chest, abdomen and pelvis without contrast. TECHNIQUE: Multiple contiguous axial images were obtained through the chest, abdomen, and pelvis without the use of intravenous contrast. Auto Exposure Controls were utilized during the CT exam to meet ALARA standards for radiation dose reduction. INDICATION: Chest and abdominal pain. CT CHEST: There is a 4 x 6 mm parenchymal density in the right upper lobe which is somewhat elongated. This likely represents some scar. This is not calcified and will need to be followed for stability. There is an 8 mm parenchymal density more inferiorly located in the right lower lobe. This has some slight surrounding spiculation. Right middle lobe has a calcified granuloma. There is calcified granuloma in the left upper lobe. There is patchy groundglass infiltrate in the left lower lobe. There is no effusion or pneumothorax. CT ABDOMEN/PELVIS: The liver shows granulomatous calcifications. The gallbladder appears normal. There are granulomatous calcifications in the spleen. Pancreas shows some calcifications which may be related to chronic pancreatitis. No acute pancreatitis is evident. There is a 1 cm low density area in the proximal body of the pancreas. The adrenals are normal. There is a 5 mm nonobstructing calculus in the lower pole of the right kidney. The left kidney is normal. The ureters and bladder are normal. There is a Townsend catheter in the bladder. There is artifact in the pelvis from right hip prosthesis. There is a small bowel intussusception seen in the left mid abdomen. There may be mildly dilated loops of bowel proximal to this and this may be causing a bowel obstruction. There is some spasm and edema of the sigmoid colon. Inflammation of the colon is a possibility. No diverticula are evident. No colon obstruction is evident. There is no free intraperitoneal air or fluid. There is no acute bony abnormality. IMPRESSION: 1. CT of the chest shows multiple bilateral lung nodules, most of which are calcified. There are two nodules in the right lung which are noncalcified. These may be related to granulomatous disease but will need to be followed for stability. 2. In the abdomen there is appearance of a small bowel intussusception in the left mid abdomen which may be causing some obstruction. There is some spasm and/or edema of the sigmoid colon which may be related to a colitis. Recommend continued followup. Dictated by: Dictated on workstation # [id number] Dict: 04/11/191907 Trans: 04/11/191919 [facility] [id number] Interpreted by: IAN KABA MD Electronically signed by: IAN KABA MD 04/11/191919 NAME: NEEL ESQUIVEL [facility] REC#: [id number] PT STATUS: REG ER : 1935 PHYSICIAN: KATIE FARMER APRN ADMIT DATE: 04/11/19/ER Signed POSDate of Exam:04/11/19 CHEST 1 VIEW, AP/PA ONLY INDICATION: Leukocytosis. COMPARISON: 07/11/2016. FINDINGS: The lungs are well aerated. There is mild boxvsk-ctbas-epypqufay infiltrate in the left upper lung. The lungs otherwise appear clear. The heart is not enlarged. Pacemaker on the left shows leads in good position. The heart is mildly enlarged. No evidence of pulmonary edema. No pneumothorax or pleural effusion. IMPRESSION: 1. Cardiomegaly without evidence of failure. 2. There does appear to be mild patchy infiltrate in the left upper lung. Dictated by: Dictated on workstation # [id number] Dict: 04/11/191914 Trans: 04/11/191931 [id number] Interpreted by: ANGIE MORALES MD Electronically signed by: ANGIE MORALES MD 04/11/191931 (KATIE FARMER APRN) Departure Communication (Admissions) Time/Spoke to Admitting Phy: 20:[address] Doherty will admit, consult surgery spoken with Dr. Shoemaker recommends Cipro Flagyl clear liquids at this time, also consult Ryan Parnell as a fine choice Blood pressure was 75 systolic at one point, I did proceed with central line placement right internal jugular. 2130 I spoke with his Jennie, she agrees that he should be DO NOT RESUSCITATE status as he does not want to be resuscitated or on a ventilator. (KATIE FARMER APRN) Impression Primary Impression: Left upper lobe pneumonia Qualified Codes: J18.1 - Lobar pneumonia, unspecified organism Additional Impression: Intussusception Disposition: ADMITTED INPATIENT Condition: Critical Admissions Decision to Admit Reason: Admit from ER (General) Decision to Admit/Date: Apr 11, 2019 Time/Decision to Admit Time: 20:33 (KATIE FARMER APRN) Departure-Patient Inst. Referrals: BRIGID MCGOWAN MD (PCP/Family) Primary Care Physician KATIE FARMER APRN Apr 11, 2019 18:18 VITA LAUGHLIN Apr 11, 2019 20:25 POS
[2019-04-11 18:24] LABS: BASOPHILS % (AUTO) 0 % (0-10); EOSINOPHILS # (AUTO) 0.1 10^3/uL (0.0-0.3); EOSINOPHILS % (AUTO) 1 % (0-10); HEMATOCRIT 46 % (40-54); LYMPHOCYTES # (AUTO) 2.7 X 10^3 (1.0-4.0); LYMPHOCYTES % (AUTO) 14 % (12-44); MEAN CORPUSCULAR HEMOGLOBIN 31 PG (25-34); MEAN CORPUSCULAR HGB CONC 33 G/DL (32-36); MEAN CORPUSCULAR VOLUME 93 FL (80-99); MEAN PLATELET VOLUME 10.6 FL (7.4-10.4); MONOCYTES # (AUTO) 1.6 X 10^3 (0.0-1.0); MONOCYTES % (AUTO) 8 % (0-12); NEUTROPHILS # (AUTO) 15.1 X 10^3 (1.8-7.8); NEUTROPHILS % (AUTO) 78 % (42-75); PLATELET COUNT 292 10^3/uL (130-400); WHITE BLOOD COUNT 19.5 10^3/uL (4.3-11.0)
[2019-04-11 18:30] LABS: INR 1.7 (0.8-1.4); PROTHROMBIN TIME PATIENT 20.5 SEC (12.2-14.7)
[2019-04-11 18:39] LABS: BILIRUBIN,URINE NEGATIVE (NEGATIVE); CLARITY,URINE CLEAR; COLOR,URINE YELLOW; GLUCOSE, URINE (UA) NEGATIVE (NEGATIVE); KETONES,URINE NEGATIVE (NEGATIVE); LEUKOCYTE ESTERASE ,URINE NEGATIVE (NEGATIVE); NITRITE,URINE NEGATIVE (NEGATIVE); PH,URINE 6 (5-9); PROTEIN,URINE 1+ (NEGATIVE)
[2019-04-11 18:58] LABS: ALBUMIN 4.5 GM/DL (3.2-4.5); BILIRUBIN,TOTAL 0.5 MG/DL (0.1-1.0); CALCIUM 9.7 MG/DL (8.5-10.1); CREATININE SERUM 1.78 MG/DL (0.60-1.30); POTASSIUM 3.3 MMOL/L (3.6-5.0); TOTAL PROTEIN 8.5 GM/DL (6.4-8.2)
[2019-04-11 19:04] LABS: BAND NEUTROPHILS 13 %; EOSINOPHILS % (MANUAL) 1 %; LYMPHOCYTES % (MANUAL) 25 %; MONOCYTES % (MANUAL) 8 %; NEUTROPHILS % (MANUAL) 53 %; RBC MORPH NORMAL
[2019-04-11 19:05] LABS: TOXIC GRANULATION/VACUOLAZATIO 1+
--- NOTE | 2019-04-11 19:05 | Diagnostic Imaging Report ---
PROCEDURE: CT cervical spine without contrast. TECHNIQUE: Multiple contiguous axial images were obtained through the cervical spine without the use of intravenous contrast. Sagittal and coronal reformations were then performed. Auto Exposure Controls were utilized during the CT exam to meet ALARA standards for radiation dose reduction. INDICATION: Neck pain. FINDINGS: Sagittal and coronal reformatted images show good alignment of vertebral bodies. Body height is well maintained. There is loss of disc space at C3-C4, C5-C6 and C6-C7. Hypertrophic lipping of the endplates. Mild uncovertebral hypertrophy noted bilaterally at C6-C7 which is causing drja-ps-oipvksay encroachment most severe on the left neural foramen. Mild central canal stenosis. There are no fractures. IMPRESSION: Advanced degenerative cervical disc and facet disease throughout with some mild stenosis of the central canal. Moderate encroachment on the left neural foramen at the C6-C7 level. Dictated by: Dictated on workstation # [id number]
[2019-04-11 19:06] LABS: BACTERIA,URINE TRACE /HPF; WBC,URINE 0-2 /HPF
--- NOTE | 2019-04-11 19:06 | Diagnostic Imaging Report ---
PROCEDURE: CT head without contrast. TECHNIQUE: Multiple contiguous axial images were obtained through the brain without the use of intravenous contrast. Auto Exposure Controls were utilized during the CT exam to meet ALARA standards for radiation dose reduction. INDICATION: Change in mental status The ventricles are normal in size, shape and position. There is no acute parenchymal hemorrhage, edema or mass. There is age-related atrophy. There is no extra-axial mass or hemorrhage. IMPRESSION: No acute abnormality is seen. There is no significant change from a prior study from 11/11/2013. Dictated by: Dictated on workstation # [id number]
[2019-04-11 19:07] LABS: RENAL EPITHELIAL CELLS,URINE RARE /HPF
--- NOTE | 2019-04-11 19:19 | Diagnostic Imaging Report ---
PROCEDURE: CT chest, abdomen and pelvis without contrast. TECHNIQUE: Multiple contiguous axial images were obtained through the chest, abdomen, and pelvis without the use of intravenous contrast. Auto Exposure Controls were utilized during the CT exam to meet ALARA standards for radiation dose reduction. INDICATION: Chest and abdominal pain. CT CHEST: There is a 4 x 6 mm parenchymal density in the right upper lobe which is somewhat elongated. This likely represents some scar. This is not calcified and will need to be followed for stability. There is an 8 mm parenchymal density more inferiorly located in the right lower lobe. This has some slight surrounding spiculation. Right middle lobe has a calcified granuloma. There is calcified granuloma in the left upper lobe. There is patchy groundglass infiltrate in the left lower lobe. There is no effusion or pneumothorax. CT ABDOMEN/PELVIS: The liver shows granulomatous calcifications. The gallbladder appears normal. There are granulomatous calcifications in the spleen. Pancreas shows some calcifications which may be related to chronic pancreatitis. No acute pancreatitis is evident. There is a 1 cm low density area in the proximal body of the pancreas. The adrenals are normal. There is a 5 mm nonobstructing calculus in the lower pole of the right kidney. The left kidney is normal. The ureters and bladder are normal. There is a Townsend catheter in the bladder. There is artifact in the pelvis from right hip prosthesis. There is a small bowel intussusception seen in the left mid abdomen. There may be mildly dilated loops of bowel proximal to this and this may be causing a bowel obstruction. There is some spasm and edema of the sigmoid colon. Inflammation of the colon is a possibility. No diverticula are evident. No colon obstruction is evident. There is no free intraperitoneal air or fluid. There is no acute bony abnormality. IMPRESSION: 1. CT of the chest shows multiple bilateral lung nodules, most of which are calcified. There are two nodules in the right lung which are noncalcified. These may be related to granulomatous disease but will need to be followed for stability. 2. In the abdomen there is appearance of a small bowel intussusception in the left mid abdomen which may be causing some obstruction. There is some spasm and/or edema of the sigmoid colon which may be related to a colitis. Recommend continued followup. Dictated by: Dictated on workstation # [id number]
--- NOTE | 2019-04-11 19:21 | Diagnostic Imaging Report ---
INDICATION: Leukocytosis. COMPARISON: 07/11/2016. FINDINGS: The lungs are well aerated. There is mild kbjqqw-rnfhu-obgwvfben infiltrate in the left upper lung. The lungs otherwise appear clear. The heart is not enlarged. Pacemaker on the left shows leads in good position. The heart is mildly enlarged. No evidence of pulmonary edema. No pneumothorax or pleural effusion. IMPRESSION: 1. Cardiomegaly without evidence of failure. 2. There does appear to be mild patchy infiltrate in the left upper lung. Dictated by: Dictated on workstation # [id number]
--- NOTE | 2019-04-11 19:57 | Diagnostic Imaging Report ---
INDICATION: Central line placement. Comparison with previous exam same date. Right jugular line present. Tip overlies the superior vena cava approximately 3 cm proximal to the cavoatrial junction. The lungs are well-aerated and clear. No pneumothorax or pleural effusion. Heart is mildly enlarged. Pacemaker on the left appears unchanged. IMPRESSION: Satisfactory appearing placement of right jugular line with no evidence of complication. Dictated by: Dictated on workstation # [id number]
[2019-04-11] MEDS ORDERED: NS (IVPB) 250 ML ONE (20:21)
[2019-04-11] MEDS ORDERED: NOREPINEPHRINE 4 MG/4 ML (LEVOPHED) AMP IV ONE (20:22)
--- NOTE | 2019-04-11 20:39 | Diagnostic Imaging Report ---
INDICATION: Follow-up central line placement. FINDINGS: Right central line present, tip is just above the cavoatrial junction. The lungs are well aerated. No pneumothorax or pleural effusion. Mild cardiomegaly with pacemaker present unchanged. IMPRESSION: Satisfactory appearing right jugular central line catheter. Dictated by: Dictated on workstation # [id number]
[2019-04-11] MEDS ORDERED: LEVOFLOXACIN 750 MG/150 ML IV 150 ML IV ONE (20:45)
[2019-04-11] MEDS ORDERED: NOREPINEPHRINE 4 MG in NS (IVPB) 250 ML IV SCH (20:45)
[2019-04-11] MEDS ORDERED: NS IV 1000 ML 2,449.41 ML IV ONE (22:00)
[2019-04-11] MEDS ORDERED: ONDANSETRON 4 MG/2 ML (SDV) Z0FRAN IV PRN (22:00)
[2019-04-11] MEDS ORDERED: fentaNYL INJECTION 100 MCG/2 ML AMP IV PRN (22:00)
[2019-04-11] MEDS ORDERED: EPINEPHrine 1 MG INJECTION 2 MG in NS (IVPB) 250 ML IV SCH (22:00)
[2019-04-11] MEDS: VASOPRESSIN INJECTION 20 UNIT in NORMAL SALINE 100 ML IV SCH (22:11)
[2019-04-11] MEDS ORDERED: NOREPINEPHRINE 4 MG/NS 250 ML DRIP IV SCH ×2 (22:15)
[2019-04-11] MEDS: metroNIDAZOLE 500 MG/100 ML IVPB (PRE-MIX) IV SCH (22:37)
[2019-04-11] MEDS ORDERED: SODIUM BICARB 8.4% 50 MEQ/50 ML VIAL ONE (22:59)
[2019-04-11] MEDS: SODIUM BICARB 8.4% 50 MEQ/50 ML (ABBOTT) SYR IV SCH ×2 (23:11→23:52)
[2019-04-11] MEDS ORDERED: RT-ALBUTEROL SULF 2.5 MG/3 ML PRE-MIX VIAL INH PRN (23:15)
[2019-04-12] VITALS (18 sets, daily range): BP systolic 120–146; BP diastolic 56–109
[2019-04-12] MEDS: POTASSIUM CL 10MEQ/50ML IVPB 50 ML IV SCH ×3 (01:21→06:22)
[2019-04-12 01:42] LABS: BASOPHILS % (AUTO) 0 % (0-10); EOSINOPHILS % (AUTO) 0 % (0-10); HEMATOCRIT 35 % (40-54); HEMOGLOBIN 12.2 G/DL (13.3-17.7); LYMPHOCYTES # (AUTO) 0.2 X 10^3 (1.0-4.0); LYMPHOCYTES % (AUTO) 3 % (12-44); MEAN CORPUSCULAR HEMOGLOBIN 31 PG (25-34); MEAN CORPUSCULAR HGB CONC 35 G/DL (32-36); MEAN CORPUSCULAR VOLUME 90 FL (80-99); MEAN PLATELET VOLUME 9.9 FL (7.4-10.4); MONOCYTES # (AUTO) 0.6 X 10^3 (0.0-1.0); MONOCYTES % (AUTO) 7 % (0-12); NEUTROPHILS # (AUTO) 7.8 X 10^3 (1.8-7.8); NEUTROPHILS % (AUTO) 90 % (42-75); PLATELET COUNT 155 10^3/uL (130-400); RED CELL DISTRIBUTION WIDTH 12.8 % (10.0-14.5); WHITE BLOOD COUNT 8.6 10^3/uL (4.3-11.0)
[2019-04-12 02:02] LABS: ALANINE AMINOTRANSFERASE < 6 U/L (0-55); ALBUMIN 3.3 GM/DL (3.2-4.5); ALKALINE PHOSPHATASE 57 U/L (40-136); BILIRUBIN,TOTAL 0.5 MG/DL (0.1-1.0); BUN/CREATININE RATIO 18; CARBON DIOXIDE 25 MMOL/L (21-32); CHLORIDE 110 MMOL/L (98-107); CREATININE SERUM 1.35 MG/DL (0.60-1.30); GFR ESTIMATED 51; GLUCOSE 78 MG/DL (70-105); PHOSPHORUS 2.2 MG/DL (2.3-4.7); POTASSIUM 3.7 MMOL/L (3.6-5.0); SODIUM 148 MMOL/L (135-145); TOTAL PROTEIN 6.1 GM/DL (6.4-8.2)
[2019-04-12 02:38] LABS: ABG BASE EXCESS 2.3 MMOL/L (-2.5-2.5); ABG OXYGEN SATURATION 99 % (94-100); ABG PCO2 43 MMHG (35-45); ABG PH 7.41 (7.37-7.43); ABG PO2 120 MMHG (79-93); ABG TCO2 27.7 MMOL/L (21.0-31.0)
[2019-04-12 02:42] LABS: ALLENS TEST YES-POS; INSPIRED O2 3L; PATIENT TEMP 37.8; VENTILATOR NO
[2019-04-12 03:57] LABS: BASOPHILS % (AUTO) 0 % (0-10); EOSINOPHILS % (AUTO) 0 % (0-10); HEMATOCRIT 34 % (40-54); HEMOGLOBIN 11.9 G/DL (13.3-17.7); LYMPHOCYTES # (AUTO) 0.3 X 10^3 (1.0-4.0); LYMPHOCYTES % (AUTO) 4 % (12-44); MEAN CORPUSCULAR HEMOGLOBIN 31 PG (25-34); MEAN CORPUSCULAR HGB CONC 35 G/DL (32-36); MEAN CORPUSCULAR VOLUME 90 FL (80-99); MEAN PLATELET VOLUME 9.8 FL (7.4-10.4); MONOCYTES # (AUTO) 0.6 X 10^3 (0.0-1.0); MONOCYTES % (AUTO) 7 % (0-12); NEUTROPHILS # (AUTO) 7.4 X 10^3 (1.8-7.8); NEUTROPHILS % (AUTO) 89 % (42-75); PLATELET COUNT 160 10^3/uL (130-400); RED CELL DISTRIBUTION WIDTH 12.8 % (10.0-14.5); WHITE BLOOD COUNT 8.3 10^3/uL (4.3-11.0)
[2019-04-12 04:15] LABS: CREATININE SERUM 1.51 MG/DL (0.60-1.30); POTASSIUM 4.3 MMOL/L (3.6-5.0)
--- NOTE | 2019-04-12 05:26 | Pulmonary Consultation ---
History of Present Illness History of Present Illness Date of Consultation 04/12/19 05:21 Date of Admission Allergies and Home Medications Allergies Coded Allergies: No Known Drug Allergies (Unverified , 06/20/13) Home Medications Aspirin 81 Mg Tablet.dr, 81 MG PO DAILY, (Reported) Bethanechol Chloride 25 Mg Tablet, 25 MG PO QID, (Reported) Carbidopa/Levodopa 1 Each Tablet, 1 TAB PO TID, (Reported) Celecoxib 100 Mg Capsule, 100 MG PO DAILY, (Reported) Divalproex Sodium 125 Mg Cap.sprink, 125 MG PO TID, (Reported) Econazole Nitrate 30 Gm Cream.gm., 30 GM TP BID Prescribed by: KATIE FARMER on 06/07/14 1420 Furosemide 40 Mg Tablet, 40 MG PO DAILY, (Reported) Furosemide 20 Mg Tablet, 20 MG PO DAILY, (Reported) Pantoprazole Sodium 40 Mg Tablet.dr, 40 MG PO DAILY, (Reported) Rivaroxaban 20 Mg Tablet, 20 MG PO 1700, (Reported) Sertraline HCl 25 Mg Tablet, 25 MG PO HS, (Reported) Sertraline HCl 50 Mg Tablet, 50 MG PO DAILY, (Reported) Tamsulosin HCl 0.4 Mg Cap, 0.4 MG PO HS, (Reported) Past Gdurlqr-Jyawrd-Mkyzfb Hx Patient Social History Type Used: Cigarettes Former Smoker, Quit: Feb 10, 2011 Recent Foreign Travel: No Contact w/Someone Who Travel: No Recent Infectious Disease Expo: No Recent Hopitalizations: No Physical Abuse: No Sexual Abuse: No Mistreated: No Fear: No Immunizations Up To Date Tetanus Booster (TDap): Unknown Seasonal Allergies Seasonal Allergies: No Past Medical History Surgeries: No Defibrillator, Orthopedic, Pacemaker Atrial Fibrillation, Chronic Edema/Swelling, Coronary Artery Disease Dementia Reproductive Disorders: No Prostate Problems Gastroesophageal Reflux Fractures Depression Integumentary: No Adverse Reaction/Blood Tranf: No Family Medical History Family history: Cardiovascular disease 09 BROTHER (60 ) Family history: Diabetes mellitus 03 FATHER 09 BROTHER 09 BROTHER Family history: Hypertension 09 SISTER 09 SISTER Stroke 09 SISTER (61 ) Tuberculosis 03 FATHER (67) Heart Disease, Diabetes Sepsis Event Evaluation Height, Weight, BMI Height: 6'0.00" Weight: 180lbs. 0.0oz. 81.692380zp; 22.00 BMI Method:Stated Exam Exam Vital Signs Date Time Temp Pulse Resp B/P (MAP) Pulse Ox O2 Delivery O2 Flow Rate FiO2 04/12/19 02:33 37.9 80 18 100 Nasal Cannula 2.00 04/12/19 02:00 37.6 78 30 140/73 (95) 100 Nasal Cannula 3.00 04/12/19 01:00 37.1 77 24 130/85 (100) 100 Nasal Cannula 3.00 04/12/19 01:00 77 04/12/19 00:15 36.7 79 23 139/91 (107) 100 Nasal Cannula 3.00 04/12/19 00:00 100 Nasal Cannula 3.00 04/11/19 23:45 36.5 89 144/79 (100) 100 Nasal Cannula 3.00 04/11/19 23:33 Nasal Cannula 3.00 04/11/19 23:12 OxyMask 3.00 04/11/19 23:06 35.5 66 99 04/11/19 23:00 36.5 73 20 113/80 (91) 100 OxyMask 8.00 04/11/19 22:00 36.1 69 27 107/57 (74) 100 OxyMask 8.00 04/11/19 21:30 OxyMask 8.00 04/11/19 21:07 121 04/11/19 21:00 35.5 118 18 86/59 (68) 90 OxyMask 8.00 04/11/19 20:45 96 22 94/62 96 04/11/19 20:32 96 22 94/62 (73) 96 04/11/19 19:48 22 101/77 (85) 98 04/11/19 19:41 33.4 100 24 75/50 (58) 04/11/19 18:59 OxyMask 10.00 I & O 04/12/19 07:00 Intake Total 4400 ml Output Total 175 ml Balance 4225 ml Height & Weight Height: 6'0.00" Weight: 180lbs. 0.0oz. 81.703828ct; 22.00 BMI Method:Stated General Appearance: WD/WN, Other (confused but alert, repetitively states "just leave me alone". Cold to the touch, not hypotensive here, initial blood pressure 123/68, heart rate 74. He is in fact covered in fecal matter) HEENT: PERRL/EOMI, TMs Normal Respiratory: Lungs Clear, No Respiratory Distress Cardiovascular: Regular Rate, Rhythm, Normal Peripheral Pulses Capillary Refill: Greater Than 3 Seconds Extremity: Normal Capillary Refill, Normal Inspection Neurologic/Psychiatric: Alert, Oriented x3 Skin: Normal Color, Warm/Dry Results Lab Laboratory Tests 04/11/19 18:00 04/12/19 01:31 04/12/19 03:48 Assessment/Plan Assessment/Plan MARISOL PNA Hypotension - improved Metabolic lactic acidosis Dehydration Intussusception -surgery following Diarrhea -Check CdiKENDRA Ann DO Apr 12, 2019 05:26 POS
[2019-04-12] MEDS ORDERED: SODIUM PHOSPHATE INJ 30 MM in NS (IVPB) 250 ML IV ONE (05:30)
[2019-04-12] MEDS ORDERED: LACTATED RINGERS 1,000 ML IV SCH (05:30)
[2019-04-12] MEDS ORDERED: PIPERACILLIN/TAZOBACTAM (BULK) 4.5 GM in NS (IVPB) 100 ML IV ONE (05:30)
[2019-04-12] MEDS ORDERED: NS (IVPB) 100 ML ONE (05:42)
[2019-04-12] MEDS ORDERED: PIPERACILLIN/TAZO 4.5 GM VIAL (ZOSYN) IV ONE (05:42)
[2019-04-12] MEDS: LACTATED RINGERS 1,000 ML IV SCH ×3 (06:22→18:38)
[2019-04-12] MEDS: MAGNESIUM 1 GM/100 ML IVPB 100 ML IV SCH (06:22)
[2019-04-12] MEDS: KCL 20 MEQ TAB (K-DUR) PO SCH (06:22)
[2019-04-12] MEDS: VASOPRESSIN INJECTION 20 UNIT in NORMAL SALINE 100 ML IV SCH (06:23)
[2019-04-12] MEDS: metroNIDAZOLE 500 MG/100 ML IVPB (PRE-MIX) IV SCH ×2 (06:23→13:50)
--- NOTE | 2019-04-12 06:57 | Diagnostic Imaging Report ---
EXAM: CHEST 1 VIEW, AP/PA ONLY INDICATION: Pneumonia. COMPARISON: 04/11/2019. FINDINGS: Normal heart size and central pulmonary vascularity. No focal pulmonary opacity, pleural effusion or pneumothorax. Calcified granuloma in the right lung base is stable. Right IJ CVC tip near the RASVC junction. Cardiac pacer. No acute osseous findings. IMPRESSION: No acute cardiopulmonary findings. Dictated by: Dictated on workstation # [id number]
[2019-04-12] MEDS: RT-ALBUTEROL/IPRATROPIUM 3 ML (DUONEB) VIAL INH SCH ×2 (09:35→19:27)
--- NOTE | 2019-04-12 10:45 | History & Physical-Hospitalist ---
History of Present Illness HPI/Chief Complaint Chief complaint: Altered mental status History of present illness: This is an 83-year-old white male who resides at [facility] with his family who has a past medical history of dementia who presented with pneumonia and severe sepsis with elevated lactic acid of 16. At this current time patient is feeling much better. Poor historian noted. home mission worker will be consulted for jail placement. He remains a DO NOT RESUSCITATE. He was found to have fecal matter all over his body. Patient denies any significant pain. Patient appears to be very frail. Source: patient, RN/MD Exam Limitations: clinical condition, other (dementia) Date Seen 04/12/19 Time Seen by a Provider: 09:15 Attending Physician Blanca Doherty MD PCP Shamar Stone MD Referring Physician Date of Admission Apr 11, 2019 at 20:24 Home Medications & Allergies Home Medications Reviewed patient Home Medication Reconciliation performed by pharmacy medication reconciliations water pollution control technician and/or nursing. Patients Allergies have been reviewed. Allergies Allergies Coded Allergies No Known Drug Allergies (Unverified06/20/13) Past Ghwqgli-Wzxicj-Kaamjd Hx Past Med/Social Hx: Reviewed Nursing Past Med/Soc Hx, Reviewed and Corrections made Patient Social History Marrital Status: Employed/Student: retired Smoking Status: Unknown if Ever Smoked Former Smoker, Quit: Feb 10, 2011 Type Used: Cigarettes Recent Foreign Travel: No Contact w/other who traveled: No Recent Hopitalizations: No Recent Infectious Disease Expo: No Immunizations Up To Date Tetanus Booster (TDap): Unknown Seasonal Allergies Seasonal Allergies: No Past Medical History Surgeries: Defibrillator, Orthopedic, Pacemaker Cardiac: Atrial Fibrillation, Chronic Edema/Swelling, Coronary Artery Disease Neurological: Dementia Reproductive: No Genitourinary: Prostate Problems Gastrointestinal: Gastroesophageal Reflux Musculoskeletal: Fractures Psychosocial: Depression Adverse Reaction to Blood Connelly: No Family History Family history: Cardiovascular disease 09 BROTHER (60 ) Family history: Diabetes mellitus 03 FATHER 09 BROTHER 09 BROTHER Family history: Hypertension 09 SISTER 09 SISTER Stroke 09 SISTER (61 ) Tuberculosis 03 FATHER (67) Heart Disease, Diabetes Review of Systems ROS-Unable to Obtain: unobtainable due to dementia Constitutional: see HPI Physical Exam Physical Exam Vital Signs Vital Signs - First Documented 04/11/19 04/11/19 04/11/19 04/12/19 18:59 19:41 19:48 10:52 Temp 33.4 Pulse 100 Resp 24 B/P (MAP) 75/50 (58) Pulse Ox 98 O2 Delivery OxyMask O2 Flow Rate 10.00 FiO2 28 Capillary Refill : Greater Than 3 Seconds Height, Weight, BMI Height: 6'0.00" Weight: 180lbs. 0.0oz. 81.278069fm; 22.00 BMI Method:Stated General Appearance: No Apparent Distress, Anxious, Chronically ill, Cachetic Eyes: Right Eye Normal Inspection, Right Eye PERRL HEENT: PERRL/EOMI, Normal ENT Inspection, Pharynx Normal, Moist Mucous Membranes Neck: Full Range of Motion, Normal Inspection, Non Tender Respiratory: Chest Non Tender, No Accessory Muscle Use, No Respiratory Distress, Crackles, Decreased Breath Sounds Cardiovascular: Regular Rate, Rhythm, No Edema, No Gallop, No JVD, No Murmur, Normal Peripheral Pulses Gastrointestinal: Normal Bowel Sounds, No Organomegaly, No Pulsatile Mass, Non Tender, Soft Back: Normal Inspection, No CVA Tenderness, No Vertebral Tenderness Extremity: Normal Capillary Refill, Normal Inspection, Normal Range of Motion, Non Tender, No Calf Tenderness, No Pedal Edema Neurologic/Psychiatric: Alert, No Motor/Sensory Deficits, Normal Mood/Affect, Disoriented Skin: Normal Color, Warm/Dry Lymphatic: No Adenopathy Results Results/Procedures Labs Laboratory Tests 04/11/19 18:00 04/12/19 01:31 04/12/19 03:48 Patient resulted labs reviewed. Assessment/Plan Admission Diagnosis Assessment: Severe sepsis Pneumonia Dementia Lactic acidosis Poor prognosis Intussusception? DO NOT RESUSCITATE Plan: Transfer to fourth floor IV fluids IV antibiotics Monitor closely Admission Status: Inpatient Order (span 2 midnights) Reason for Inpatient Admission: Severe sepsis with pneumonia and dementia Diagnosis/Problems Diagnosis/Problems (1) Severe sepsis (2) Dementia (3) Lactic acidosis (4) Poor prognosis (5) Do not resuscitate (6) Left upper lobe pneumonia Status: Acute Qualifiers: Pneumonia type: due to unspecified organism Qualified Codes: J18.1 - Lobar pneumonia, unspecified organism (7) Intussusception Status: Acute Clinical Quality Measures DVT/VTE Risk/Contraindication: Risk Factor Score Per Nursin RFS Level Per Nursing on Admit: 4+=Very High MILAGRO ROSENBAUM DO Apr 12, 2019 10:45 POS
[2019-04-12] MEDS ORDERED: DIVA125C10 PO (10:52)
[2019-04-12] MEDS ORDERED: SERT50TA9 PO (10:52)
[2019-04-12] MEDS ORDERED: BETH25TA11 PO (10:52)
[2019-04-12] MEDS ORDERED: TAMS0.4C98 PO (10:52)
[2019-04-12] MEDS ORDERED: RIVA20TA PO (10:52)
[2019-04-12] MEDS ORDERED: PANT40TA3 PO (10:52)
[2019-04-12] MEDS ORDERED: CARB1TAB19 PO (10:52)
[2019-04-12] MEDS ORDERED: FURO20TA4 PO (10:52)
[2019-04-12] MEDS ORDERED: CELE100C84 PO (10:52)
[2019-04-12] MEDS ORDERED: RT-ALBUTEROL SULF 2.5 MG/3 ML PRE-MIX VIAL INH PRN (12:00)
--- NOTE | 2019-04-12 12:26 | NUR ---
Patient transfered from ICU to room 412. Report received from ICU nurse, I agree with her assessment. Will continue to monitor.
[2019-04-12] MEDS ORDERED: MEMA10TA22 PO (12:55)
[2019-04-12] MEDS ORDERED: RIVA4.5C5 PO (12:55)
--- NOTE | 2019-04-12 12:56 | NUR ---
SPOKE WITH PT BUT HE WAS UNSURE OF HIS MEDICATIONS- HE DID HAVE A BAG OF HIS HOME MEDS, I WENT THROUGH THOSE, CALLED HIS DAUGHTER WHO HELPS HIM AND LOOKED THROUGH THE EXT MED HISTORY TO COMPLETE THE MED REC. THE FAMILY WAS ABLE TO TELL ME HOW/WHEN HE TAKES HIS MEDS AND IT APPEARED CORRECT ACCORDING TO HIS EXT MED HISTORY.
[2019-04-12] MEDS: PIPERACILLIN/TAZOBACTAM (BULK) 4.5 GM in NS (IVPB) 100 ML IV SCH ×2 (12:58→20:31)
[2019-04-12] MEDS ORDERED: MAGNESIUM CITRATE 300 ML BTL PO NR (13:40)
--- NOTE | 2019-04-12 14:00 | CONSULTATION REPORT ---
DATE OF SERVICE: 04/12/2019 ADMITTING PHYSICIAN: Dr. Blanca Doherty. ATTENDING PRIMARY CARE PHYSICIAN: Dr. Stone. HISTORY OF PRESENT ILLNESS: The patient is an 83-year-old male who was brought to the Emergency Department by EMS for a change in mental status. The family had reported that he was found covered in fecal matter. He also complained of neck as well as abdominal pain. Vital signs were taken and his blood pressure was low as well. He was brought to the Emergency Department where he underwent a CT scan, which did show what appeared to be bilateral pneumonia as well as intussusception; however, this patient has a soft abdomen. No nausea, no vomiting. No peritoneal signs as well. CT scan also did show mild colitis of the distal colon, which may indicate some level of ischemic colitis versus an undiagnosed inflammatory bowel disease. At this time, he is stable with no peritoneal signs. He also has had bowel function since he has been here. PAST MEDICAL HISTORY: Atrial fibrillation, dementia, coronary artery disease, bilateral lower extremity edema, gastroesophageal reflux disease, depression. PAST SURGICAL HISTORY: Pacemaker implantation, defibrillator placement, orthopedic procedure. ALLERGIES: No known drug allergies. MEDICATIONS: Aspirin 81 mg daily, furosemide 40 mg daily, sertraline 25 mg daily, miconazole nitrate 30 gram cream b.i.d. SOCIAL HISTORY: Previous smoker, quit in 2010. Negative alcohol. FAMILY HISTORY: Father and brother, diabetes. Sister and brother, hypertension. VITAL SIGNS: Temperature 37.6, blood pressure 124/69, pulse 96, respirations 20, pulse ox 96% on 2 liters nasal cannula. REVIEW OF SYSTEMS: A well-nourished, slightly thin-appearing male, who is confused; however, awake and alert and does converse. He is not experiencing any shortness of breath or difficulty breathing. No chest pain, palpitations, diaphoresis. No nausea, vomiting. No diarrhea or constipation. He states that he did have a bowel movement earlier this morning. No abdominal pain. No cough or sputum production. No shortness of breath or difficulty breathing. No nausea, vomiting. No diarrhea, constipation, no red blood per rectum, no dark tarry stools. No fever, chills, no recent inadvertent weight loss. All other review of systems negative. PHYSICAL EXAMINATION: CHEST: Decreased breath sounds in bilateral bases. HEART: Regular, no murmurs. EXTREMITIES: No lower extremity edema, negative Homans sign. HEENT: No scleral icterus. NECK: No cervical lymphadenopathy. ABDOMEN: Soft, nontender, nondistended. No palpable masses. SKIN: Warm, dry. ASSESSMENT AND PLAN: An 83-year-old male with mental status changes, bilateral pulmonary nodules as well as what appears to be a mild colitis on the CT scan. He does not recall ever having a colonoscopy before in his life and we will proceed with a colonoscopy on this admission. For now, he may start a clear liquid diet and advance as tolerated. Job ID: [id number] DocumentID: [id number] Dictated Date: 04/12/2019 13:39:59 Green Building Design Specialist Date: 04/12/2019 13:59:46 Dictated By: SABI KATZ MD
[2019-04-12] MEDS: ENOXAPARIN 40 MG/0.4 ML (LOVENOX) SYR SC SCH (14:56)
--- NOTE | 2019-04-12 15:33 | NUR ---
CM/SS spoke with the patient's POA Chely ([phone]) to discuss the home situation. Chely stated that the patient has caregivers inside the home. His transplant case manager's name is Dennise ([phone]). The patients daughter Chely stated that she has already called the transplant case manager to get additional hours of caregivers due to a gap from morning shift to night. She also stated that the patient gets up with assistance but then ambulates around by himself. The patient's daughter stated that she does not want the patient to go into a nursing/assisted living home at this time. Will continue to follow.
[2019-04-13] VITALS (7 sets, daily range): BP systolic 96–129; BP diastolic 51–79
[2019-04-13] MEDS: metroNIDAZOLE 500 MG/100 ML IVPB (PRE-MIX) IV SCH ×4 (00:35→23:36)
[2019-04-13] MEDS: LACTATED RINGERS 1,000 ML IV SCH (01:30)
[2019-04-13] MEDS ORDERED: PIPERACILLIN/TAZO 4.5 GM VIAL (ZOSYN) IV ONE (04:05)
[2019-04-13] MEDS: PIPERACILLIN/TAZOBACTAM (BULK) 4.5 GM in NS (IVPB) 100 ML IV SCH ×3 (04:22→20:16)
[2019-04-13 05:32] LABS: BASOPHILS % (AUTO) 0 % (0-10); EOSINOPHILS % (AUTO) 1 % (0-10); HEMATOCRIT 32 % (40-54); HEMOGLOBIN 10.9 G/DL (13.3-17.7); LYMPHOCYTES # (AUTO) 0.9 X 10^3 (1.0-4.0); LYMPHOCYTES % (AUTO) 13 % (12-44); MEAN CORPUSCULAR HEMOGLOBIN 31 PG (25-34); MEAN CORPUSCULAR HGB CONC 34 G/DL (32-36); MEAN CORPUSCULAR VOLUME 92 FL (80-99); MEAN PLATELET VOLUME 10.4 FL (7.4-10.4); MONOCYTES # (AUTO) 0.5 X 10^3 (0.0-1.0); MONOCYTES % (AUTO) 7 % (0-12); NEUTROPHILS # (AUTO) 5.7 X 10^3 (1.8-7.8); NEUTROPHILS % (AUTO) 80 % (42-75); PLATELET COUNT 123 10^3/uL (130-400); RED CELL DISTRIBUTION WIDTH 12.9 % (10.0-14.5); WHITE BLOOD COUNT 7.2 10^3/uL (4.3-11.0)
[2019-04-13 05:56] LABS: BUN/CREATININE RATIO 17; CALCIUM 8.2 MG/DL (8.5-10.1); CARBON DIOXIDE 28 MMOL/L (21-32); CHLORIDE 106 MMOL/L (98-107); CREATININE SERUM 0.87 MG/DL (0.60-1.30); GFR ESTIMATED > 60; GLUCOSE 93 MG/DL (70-105); MAGNESIUM 2.2 MG/DL (1.6-2.4); PHOSPHORUS 3.3 MG/DL (2.3-4.7); POTASSIUM 3.7 MMOL/L (3.6-5.0); SODIUM 142 MMOL/L (135-145)
[2019-04-13] MEDS: POTASSIUM CL 10MEQ/50ML IVPB 50 ML IV SCH (06:13)
[2019-04-13] MEDS: MAGNESIUM 1 GM/100 ML IVPB 100 ML IV SCH (06:14)
[2019-04-13] MEDS: KCL 20 MEQ TAB (K-DUR) PO SCH (06:14)
--- NOTE | 2019-04-13 06:50 | Pulmonary Progress Note ---
Subjective Time Seen by a Provider: 06:50 Subjective/Events-last exam Abdominal pain improved. Sepsis Event Evaluation Height, Weight, BMI Height: 6'0.00" Weight: 180lbs. 0.0oz. 81.861972wa; 22.00 BMI Method:Stated Focused Exam Lactate Level 04/11/19 21:45: Lactic Acid Level 6.59*H 04/12/19 01:31: Lactic Acid Level 2.13*H 04/12/19 03:48: Lactic Acid Level 2.18*H Time of Focused Exam: 20:50 Exam Exam Vital Signs Date Time Temp Pulse Resp B/P (MAP) Pulse Ox O2 Delivery O2 Flow Rate FiO2 04/13/19 04:00 37.8 70 18 114/61 (78) 92 Nasal Cannula 2.00 04/13/19 00:34 121/68 (85) 04/13/19 00:00 37.5 69 18 96/51 (66) 95 Nasal Cannula 2.00 04/12/19 21:00 Nasal Cannula 2.00 04/12/19 20:00 37.4 71 18 124/60 (81) 96 Nasal Cannula 2.00 04/12/19 19:27 93 Room Air 04/12/19 16:00 37.6 69 20 126/61 (82) 100 Nasal Cannula 2.00 04/12/19 12:20 37.6 96 20 124/69 (87) 96 Nasal Cannula 2.00 04/12/19 11:45 75 15 125/90 (102) 99 Nasal Cannula 2.00 04/12/19 11:00 76 28 122/60 (80) 99 Nasal Cannula 2.00 04/12/19 10:52 37.5 75 100 28 04/12/19 10:00 77 25 132/56 (81) 100 Nasal Cannula 2.00 04/12/19 09:35 100 Nasal Cannula 2.00 04/12/19 09:00 101 23 120/59 (79) 100 Nasal Cannula 2.00 04/12/19 08:01 97 Nasal Cannula 2.00 04/12/19 08:00 37.5 04/12/19 08:00 75 17 125/73 (90) 99 Nasal Cannula 2.00 04/12/19 07:00 79 04/12/19 07:00 81 19 138/86 (103) 100 Nasal Cannula 2.00 I & O 04/13/19 07:00 Intake Total 2300 ml Output Total 1300 ml Balance 1000 ml Height & Weight Height: 6'0.00" Weight: 180lbs. 0.0oz. 81.589722om; 22.00 BMI Method:Stated General Appearance: No Apparent Distress, Anxious, Chronically ill, Cachetic HEENT: PERRL/EOMI, Normal ENT Inspection, Pharynx Normal, Moist Mucous Membranes Neck: Full Range of Motion, Normal Inspection, Non Tender Respiratory: Chest Non Tender, No Accessory Muscle Use, No Respiratory Distress, Crackles, Decreased Breath Sounds Cardiovascular: Regular Rate, Rhythm, No Edema, No Gallop, No JVD, No Murmur, Normal Peripheral Pulses Capillary Refill: Greater Than 3 Seconds Extremity: Normal Capillary Refill, Normal Inspection, Normal Range of Motion, Non Tender, No Calf Tenderness, No Pedal Edema Neurologic/Psychiatric: Alert, No Motor/Sensory Deficits, Normal Mood/Affect, Disoriented Skin: Normal Color, Warm/Dry Lymphatic: No Adenopathy Results Lab Laboratory Tests 04/11/19 18:00 04/12/19 01:31 04/12/19 03:48 04/13/19 05:17 Assessment/Plan Assessment/Plan MARISOL PNA -Will need repeat CXR 6-8wks after discharge -Raoul currently 1/2 blood cultures positive from strep Intussusception -surgery following Diarrhea Cdiff neg KENDRA CR DO Apr 13, 2019 06:50 POS
--- NOTE | 2019-04-13 08:25 | Diagnostic Imaging Report ---
INDICATION: Sepsis COMPARISON: 04/12/2019 FINDINGS: Single view of the chest demonstrates cardiac enlargement with chronic interstitial changes. No acute infiltrate is seen. There was no pneumothorax or effusion. The right IJ catheter is stable. Pacemaker intact. IMPRESSION: Cardiac enlargement with chronic interstitial changes. Continued follow-up recommended. Dictated by: Dictated on workstation # [id number]
[2019-04-13] MEDS: RT-ALBUTEROL/IPRATROPIUM 3 ML (DUONEB) VIAL INH SCH ×2 (09:27→18:42)
--- NOTE | 2019-04-13 11:51 | Progress Note - Surgery ---
Subjective Time Seen by a Provider: 10:29 Subjective/Events-last exam Pt seen and examined, does not appear to be in any distress. He states he has some abdominal pain and that the pain is what brought him in. I am not sure how much of this is true because pt does have mild dementia and was admitted with Pneumonia. He is tolerating diet. Review of Systems General: No Chills, No Night Sweats Pulmonary: No Dyspnea, No Cough Cardiovascular: No: Chest Pain, Palpitations Gastrointestinal: No: Nausea, Vomiting Musculoskeletal: shoulder pain, back pain Neurological: No: Weakness, Change in speech Focused Exam Lactate Level 04/11/19 21:45: Lactic Acid Level 6.59*H 04/12/19 01:31: Lactic Acid Level 2.13*H 04/12/19 03:48: Lactic Acid Level 2.18*H Time of Focused Exam: 20:50 Objective Exam Vital Signs Date Time Temp Pulse Resp B/P (MAP) Pulse Ox O2 Delivery O2 Flow Rate FiO2 04/13/19 11:10 37.2 61 16 127/79 (95) 92 Room Air 04/13/19 09:27 90 Room Air 04/13/19 07:30 37.2 65 20 113/69 (84) 93 Room Air 04/13/19 04:00 37.8 70 18 114/61 (78) 92 Nasal Cannula 2.00 04/13/19 00:34 121/68 (85) 04/13/19 00:00 37.5 69 18 96/51 (66) 95 Nasal Cannula 2.00 04/12/19 21:00 Nasal Cannula 2.00 04/12/19 20:00 37.4 71 18 124/60 (81) 96 Nasal Cannula 2.00 04/12/19 19:27 93 Room Air 04/12/19 16:00 37.6 69 20 126/61 (82) 100 Nasal Cannula 2.00 04/12/19 12:20 37.6 96 20 124/69 (87) 96 Nasal Cannula 2.00 I & O 04/13/19 07:00 Intake Total 2300 ml Output Total 1300 ml Balance 1000 ml Capillary Refill : Greater Than 3 Seconds General Appearance: No Apparent Distress, Anxious, Chronically ill, Cachetic HEENT: PERRL/EOMI, Pharynx Normal, Moist Mucous Membranes Neck: Full Range of Motion, Normal Inspection, Non Tender Respiratory: Chest Non Tender, No Accessory Muscle Use, No Respiratory Distress, Crackles, Decreased Breath Sounds Cardiovascular: Regular Rate, Rhythm, No Murmur Extremity: Normal Capillary Refill, No Calf Tenderness, No Pedal Edema Neurologic/Psychiatric: Alert, Normal Mood/Affect, Disoriented Skin: Normal Color, Warm/Dry Results Lab Laboratory Tests 04/13/19 05:17: White Blood Count 7.2, Red Blood Count 3.52L, Hemoglobin 10.9L, Hematocrit 32L, Mean Corpuscular Volume 92, Mean Corpuscular Hemoglobin 31, Mean Corpuscular Hemoglobin Concent 34, Red Cell Distribution Width 12.9, Platelet Count 123L, Mean Platelet Volume 10.4, Neutrophils (%) (Auto) 80H, Lymphocytes (%) (Auto) 13, Monocytes (%) (Auto) 7, Eosinophils (%) (Auto) 1, Basophils (%) (Auto) 0, Neutrophils # (Auto) 5.7, Lymphocytes # (Auto) 0.9L, Monocytes # (Auto) 0.5, Eosinophils # (Auto) 0.0, Basophils # (Auto) 0.0, Sodium Level 142, Potassium Level 3.7, Chloride Level 106, Carbon Dioxide Level 28, Anion Gap 8, Blood Urea Nitrogen 15, Creatinine 0.87, Estimat Glomerular Filtration Rate > 60, BUN/Creatinine Ratio 17, Glucose Level 93, Calcium Level 8.2L, Phosphorus Level 3.3, Magnesium Level 2.2 Microbiology 04/11/19 Blood Culture - Preliminary, Resulted No growth 04/11/19 C. difficile GDH Antigen & Toxins - Final, Complete 04/11/19 Urine Culture - Final, Complete NO GROWTH Assessment/Plan Assessment/Plan Assessment/Plan Small Bowel Intusseception Pneumonia - resolved, not much seen on initial CT Anemia - unsure etiology Pt has some mild-moderate abdominal pain with palpation, mostly around umbilical area. Pt does not appear to be in any pain and his WBC is 7.2 today. He had some mild renal insufficiency which is now normal. Probably need to talk to family about plan; he has a long segment of intussuseption that might be best if it is removed. Will order CT abd/pelvis with oral contrast to see if it goes through area of intussuseption. He may have been dehydrated which would account for part of the drop in Hg, WBC and Creatnine. Clinical Quality Measures DVT/VTE Risk/Contraindication: Risk Factor Score Per Nursin RFS Level Per Nursing on Admit: 4+=Very High ANGIE WILKES DO Apr 13, 2019 11:51 POS
[2019-04-13] MEDS ORDERED: IOHEXOL 350 MG/ML 100 ML (OMNIPAQUE 350) VIAL IV ONE (13:00)
[2019-04-13] MEDS ORDERED: DIATRIZOATE MEGLUM/SODIUM 37% 120 ML (GASTROGRAFIN) PO ONE (13:00)
[2019-04-13] MEDS ORDERED: NS 100 ML (IVPB) BAG IV ONE (13:00)
[2019-04-13] MEDS ORDERED: HOLD METFORMIN - RECEIVED CONTRAST 20 ML VIAL IV SCH (13:00)
--- NOTE | 2019-04-13 13:17 | Progress Note - Hospitalist ---
Subjective HPI/CC On Admission Date Seen by Provider: Apr 13, 2019 Time Seen by Provider: 12:15 Chief complaint: Altered mental status History of present illness: This is an 83-year-old white male who resides at home with his family who has a past medical history of dementia who presented with pneumonia and severe sepsis with elevated lactic acid of 16. At this current time patient is feeling much better. Poor historian noted. material preparation worker will be consulted for residential placement. He remains a DO NOT RESUSCITATE. He was found to have fecal matter all over his body. Patient denies any significant pain. Patient appears to be very frail. Subjective/Events-last exam Confer with Dr. Brock Intussusception still a possibility so will obtain CT scan with IV and oral contrast Patient reports some dysphagia but unsure if that's reliable Pneumonia is not really visualized on the original CT scan Profound dementia will preclude him from returning home to his previous placement considering he was covered with feces when he came in He does report some abdominal pain at times Review of Systems General: Fatigue Gastrointestinal: Abdominal Pain Focused Exam Lactate Level 04/11/19 21:45: Lactic Acid Level 6.59*H 04/12/19 01:31: Lactic Acid Level 2.13*H 04/12/19 03:48: Lactic Acid Level 2.18*H Time of Focused Exam: 20:50 Objective Exam Vital Signs Vital Signs Date Time Temp Pulse Resp B/P (MAP) Pulse Ox O2 Delivery O2 Flow Rate FiO2 04/13/19 11:10 37.2 61 16 127/79 (95) 92 Room Air 04/13/19 04:00 2.00 04/12/19 10:52 28 Capillary Refill : Greater Than 3 Seconds General Appearance: No Apparent Distress, WD/WN, Chronically ill, Cachetic Respiratory: Lungs Clear, Normal Breath Sounds Cardiovascular: Regular Rate, Rhythm Genital/Rectal: Tenderness Neurologic/Psychiatric: Alert, No Motor/Sensory Deficits, dry goods inspector II-XII Norm as Tested, Depressed Affect, Disoriented Results/Procedures Lab Laboratory Tests 04/13/19 05:17 Patient resulted labs reviewed. Assessment/Plan Assessment and Plan Assess & Plan/Chief Complaint Assessment: Sepsis Intussusception Presumed pneumonia CT scan rules out Elevated lactic acid Severe dementia Dysphagia Severe debility Plan: CT scan with IV and by mouth contrast Antibiotics coverage Monitor closely Diagnosis/Problems Diagnosis/Problems (1) Severe sepsis (2) Dementia (3) Lactic acidosis (4) Poor prognosis (5) Do not resuscitate (6) Left upper lobe pneumonia Status: Acute Qualifiers: Pneumonia type: due to unspecified organism Qualified Codes: J18.1 - Lobar pneumonia, unspecified organism (7) Intussusception Status: Acute Clinical Quality Measures DVT/VTE Risk/Contraindication: Risk Factor Score Per Nursin RFS Level Per Nursing on Admit: 4+=Very High MILGARO ROSENBAUM DO Apr 13, 2019 13:17 POS
[2019-04-13] MEDS: ENOXAPARIN 40 MG/0.4 ML (LOVENOX) SYR SC SCH (14:19)
--- NOTE | 2019-04-13 16:46 | Diagnostic Imaging Report ---
PROCEDURE: CT abdomen and pelvis with contrast, rule out appendicitis. TECHNIQUE: Multiple contiguous axial images were obtained through the abdomen and pelvis after the administration of intravenous contrast. INDICATION: Bowel obstruction and intussusception. COMPARISON: 04/11/2019 FINDINGS: There are small effusions and atelectasis in the lung bases which are new compared to the previous examination. There is some mild abdominal ascites. Previously described left lower quadrant intussusception is no longer identified. There is some minimal distention of the colon which is fluid-filled. The distal sigmoid and rectum appear thickened and inflamed. There is some transitioning of the distal sigmoid colon which is located in the right lower quadrant of the abdomen. This could represent focal adhesion. Although unusual, internal colonic hernia is not excluded. There is some questionable proctitis involving the rectum. There is some inflammatory change in the presacral space. There is no abscess or free air. Solid organs, vascular structures and urinary bladder is stable. There is some slight prostate enlargement. There is no abdominal wall hernia. Osseous structures are stable. IMPRESSION: 1. The intussusception previously described is no longer seen. However, there is some increasing large and small bowel distention concerning for diffuse ileus or partial obstruction. There is moderate inflammatory change involving the distal sigmoid and rectum. The sigmoid appears redundant and within the right lower quadrant of the abdomen. This appears to represent a transition point and may be secondary to adhesions. A right lower quadrant internal hernia is not fully excluded but would be unusual. 2. New abdominal ascites. 3. New small bilateral pleural effusions with dependent atelectasis. 4. No free air or abscess formation. Report called to the patient's clinician. Dictated by: Dictated on workstation # [id number]
[2019-04-13] MEDS: BETHANECHOL 25 MG (URECHOLINE) TAB PO SCH ×2 (18:09→21:10)
[2019-04-13] MEDS: RIVAROXABAN 20 MG TABLET (XARELTO) PO SCH (18:09)
--- NOTE | 2019-04-13 19:35 | NUR ---
DR WILKES CALLED WITH ORDER FOR FLAT PLATE XRAY TO BE DONE AT 2100. THIS NURSE DEEP TISSUE MASSAGE THERAPIST ORDERED KUB/FLAT PLATE.
--- NOTE | 2019-04-13 20:05 | Diagnostic Imaging Report ---
EXAMINATION: Abdomen 1 view HISTORY: Intussusception FINDINGS: No comparison available. There are mildly dilated loops of large and small bowel. No free air is seen. Pacemaker leads are noted. There is right hip arthroplasty. Contrast is noted in the bowel. IMPRESSION: 1. Dilated loops of small and large bowel without free air is seen. Dictated by: Dictated on workstation # [id number]
[2019-04-13] MEDS: TAMSULOSIN 0.4 MG (FLOMAX) CAP PO SCH (21:10)
[2019-04-13] MEDS: RIVASTIGMINE 1.5 MG (EXELON) CAP PO SCH (21:10)
[2019-04-13] MEDS: DIVALPROX SPRINKLE 125 MG (DEPAKOTE) CAP PO SCH (21:10)
[2019-04-13] MEDS: MEMANTINE 10 MG (NAMENDA) TABLET PO SCH (21:10)
[2019-04-13] MEDS: SINEMET 25/100 (CARBIDOPA/LEVODOPA) TAB PO SCH (21:10)
[2019-04-13] MEDS ORDERED: LEVOFLOXACIN 750 MG/D5W 150 ML PRE-MIX IV SCH (22:00)
[2019-04-14] VITALS: BP 136/65
[2019-04-14 04:00] VITALS: BP 143/76
[2019-04-14] MEDS: PIPERACILLIN/TAZOBACTAM (BULK) 4.5 GM in NS (IVPB) 100 ML IV SCH ×3 (04:35→20:24)
[2019-04-14 05:00] LABS: BASOPHILS % (AUTO) 0 % (0-10); EOSINOPHILS # (AUTO) 0.2 10^3/uL (0.0-0.3); EOSINOPHILS % (AUTO) 3 % (0-10); HEMATOCRIT 33 % (40-54); HEMOGLOBIN 10.9 G/DL (13.3-17.7); LYMPHOCYTES # (AUTO) 0.8 X 10^3 (1.0-4.0); LYMPHOCYTES % (AUTO) 13 % (12-44); MEAN CORPUSCULAR HEMOGLOBIN 31 PG (25-34); MEAN CORPUSCULAR HGB CONC 33 G/DL (32-36); MEAN CORPUSCULAR VOLUME 93 FL (80-99); MONOCYTES # (AUTO) 0.4 X 10^3 (0.0-1.0); MONOCYTES % (AUTO) 6 % (0-12); NEUTROPHILS # (AUTO) 4.8 X 10^3 (1.8-7.8); NEUTROPHILS % (AUTO) 78 % (42-75); PLATELET COUNT 122 10^3/uL (130-400); RED CELL DISTRIBUTION WIDTH 13.2 % (10.0-14.5); WHITE BLOOD COUNT 6.1 10^3/uL (4.3-11.0)
[2019-04-14 05:28] LABS: BUN/CREATININE RATIO 23; CARBON DIOXIDE 26 MMOL/L (21-32); CHLORIDE 110 MMOL/L (98-107); CREATININE SERUM 0.75 MG/DL (0.60-1.30); GFR ESTIMATED > 60; GLUCOSE 98 MG/DL (70-105); MAGNESIUM 2.2 MG/DL (1.6-2.4); PHOSPHORUS 2.8 MG/DL (2.3-4.7); POTASSIUM 3.7 MMOL/L (3.6-5.0); SODIUM 142 MMOL/L (135-145)
[2019-04-14] MEDS: POTASSIUM CL 10MEQ/50ML IVPB 50 ML IV SCH (05:33)
[2019-04-14] MEDS: MAGNESIUM 1 GM/100 ML IVPB 100 ML IV SCH (05:34)
[2019-04-14] MEDS: KCL 20 MEQ TAB (K-DUR) PO SCH (05:34)
[2019-04-14] MEDS: metroNIDAZOLE 500 MG/100 ML IVPB (PRE-MIX) IV SCH ×3 (06:33→23:35)
--- NOTE | 2019-04-14 07:07 | Pulmonary Progress Note ---
Subjective Time Seen by a Provider: 15:32 Sepsis Event Evaluation Height, Weight, BMI Height: 6'0.00" Weight: 180lbs. 0.0oz. 81.984556jm; 22.00 BMI Method:Stated Focused Exam Lactate Level 04/11/19 21:45: Lactic Acid Level 6.59*H 04/12/19 01:31: Lactic Acid Level 2.13*H 04/12/19 03:48: Lactic Acid Level 2.18*H Time of Focused Exam: 20:50 Exam Exam Vital Signs Date Time Temp Pulse Resp B/P (MAP) Pulse Ox O2 Delivery O2 Flow Rate FiO2 04/14/19 04:00 36.2 63 20 143/76 (98) 94 Room Air 04/14/19 00:00 36.2 65 16 136/65 (88) 92 Room Air 04/13/19 21:00 Nasal Cannula 2.00 04/13/19 19:19 37.2 70 20 118/72 (87) 93 Room Air 04/13/19 18:42 90 Room Air 04/13/19 17:08 37.0 66 16 129/68 (88) 93 Room Air 04/13/19 16:59 37.0 04/13/19 11:10 37.2 61 16 127/79 (95) 92 Room Air 04/13/19 09:27 90 Room Air 04/13/19 09:00 Nasal Cannula 2.00 04/13/19 07:30 37.2 65 20 113/69 (84) 93 Room Air I & O 04/14/19 07:00 Intake Total 1632 ml Output Total 1925 ml Balance -293 ml Height & Weight Height: 6'0.00" Weight: 180lbs. 0.0oz. 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
[2019-04-14 08:00] VITALS: BP 149/73
[2019-04-14] MEDS: BETHANECHOL 25 MG (URECHOLINE) TAB PO SCH ×4 (09:14→20:24)
[2019-04-14] MEDS: PANTOPRAZOLE 40 MG (PROTONIX) TAB PO SCH (09:14)
[2019-04-14] MEDS: SINEMET 25/100 (CARBIDOPA/LEVODOPA) TAB PO SCH ×3 (09:14→20:24)
[2019-04-14] MEDS: DIVALPROX SPRINKLE 125 MG (DEPAKOTE) CAP PO SCH ×3 (09:15→20:24)
[2019-04-14] MEDS: SERTRALINE 50 MG (ZOLOFT) TABLET PO SCH (09:15)
[2019-04-14] MEDS: CELECOXIB 100 MG (CeleBREX) CAP PO SCH (09:15)
[2019-04-14] MEDS: FUROSEMIDE 20 MG (LASIX) TAB PO SCH (09:15)
[2019-04-14] MEDS: MEMANTINE 10 MG (NAMENDA) TABLET PO SCH ×2 (09:15→20:24)
--- NOTE | 2019-04-14 09:43 | Diagnostic Imaging Report ---
INDICATION: Question intussusception EXAMINATION: Abdomen series dated 04/14/2019 COMPARISON: 04/13/2019 FINDINGS: 3 views of the abdomen demonstrate no evidence for free air. There are few dilated small bowel loops in the midabdomen. Some of these have slightly improved since previous. There is contrast in the left colon into the rectosigmoid. Chronic findings seen in the visualized lungs. Pacemaker also noted. IMPRESSION: 1. Persistent dilated small bowel loops slightly improved from previous. Otherwise stable abdomen. Dictated by: Dictated on workstation # [id number]
[2019-04-14] MEDS: RT-ALBUTEROL/IPRATROPIUM 3 ML (DUONEB) VIAL INH SCH ×2 (09:49→19:56)
--- NOTE | 2019-04-14 11:05 | NUR ---
PT WAS ABLE TO TAKE HIS MEDS AFTER RADIOLOGICAL EXAMS COMPLETED. HAD TO CRUSH MOST OF THE MEDS FOR HIM TO SWALLOW. PT DOES NOT FOLLOW INSTRUCTIONS WELL. HE DOES NOT SEEM TO COMPREHEND MUCH OF WHAT IS BEING SAID TO HIM.
--- NOTE | 2019-04-14 11:52 | Progress Note - Surgery ---
Subjective Time Seen by a Provider: 11:16 Subjective/Events-last exam Pt seen and examined, denies abdominal pain and states he is hungry. Pt denies nausea or vomiting. Review of Systems General: No Chills, No Night Sweats Pulmonary: No Dyspnea, No Cough Cardiovascular: No: Chest Pain, Palpitations Gastrointestinal: Abdominal Pain (minimal); No: Nausea, Vomiting Focused Exam Lactate Level 04/11/19 21:45: Lactic Acid Level 6.59*H 04/12/19 01:31: Lactic Acid Level 2.13*H 04/12/19 03:48: Lactic Acid Level 2.18*H Time of Focused Exam: 20:50 Objective Exam Vital Signs Date Time Temp Pulse Resp B/P (MAP) Pulse Ox O2 Delivery O2 Flow Rate FiO2 04/14/19 09:49 92 Room Air 04/14/19 09:00 Room Air 0.00 04/14/19 08:00 36.4 56 18 149/73 (98) 95 Room Air 04/14/19 04:00 36.2 63 20 143/76 (98) 94 Room Air 04/14/19 00:00 36.2 65 16 136/65 (88) 92 Room Air 04/13/19 21:00 Nasal Cannula 2.00 04/13/19 19:19 37.2 70 20 118/72 (87) 93 Room Air 04/13/19 18:42 90 Room Air 04/13/19 17:08 37.0 66 16 129/68 (88) 93 Room Air 04/13/19 16:59 37.0 I & O 04/14/19 07:00 Intake Total 1632 ml Output Total 1925 ml Balance -293 ml Capillary Refill : Greater Than 3 Seconds General Appearance: No Apparent Distress, Chronically ill, Cachetic HEENT: PERRL/EOMI, Other (mucous membranes dry) Respiratory: Chest Non Tender, No Accessory Muscle Use, No Respiratory Distress, Crackles, Decreased Breath Sounds Cardiovascular: Regular Rate, Rhythm, No Edema, No Murmur Extremity: No Calf Tenderness, No Pedal Edema Neurologic/Psychiatric: Alert, Disoriented Skin: Normal Color, Warm/Dry Results Lab Laboratory Tests 04/14/19 04:54: White Blood Count 6.1, Red Blood Count 3.51L, Hemoglobin 10.9L, Hematocrit 33L, Mean Corpuscular Volume 93, Mean Corpuscular Hemoglobin 31, Mean Corpuscular Hemoglobin Concent 33, Red Cell Distribution Width 13.2, Platelet Count 122L, Mean Platelet Volume 10.0, Neutrophils (%) (Auto) 78H, Lymphocytes (%) (Auto) 13, Monocytes (%) (Auto) 6, Eosinophils (%) (Auto) 3, Basophils (%) (Auto) 0, Neutrophils # (Auto) 4.8, Lymphocytes # (Auto) 0.8L, Monocytes # (Auto) 0.4, Eosinophils # (Auto) 0.2, Basophils # (Auto) 0.0, Sodium Level 142, Potassium Level 3.7, Chloride Level 110H, Carbon Dioxide Level 26, Anion Gap 6, Blood Urea Nitrogen 17, Creatinine 0.75, Estimat Glomerular Filtration Rate > 60, BUN/Creatinine Ratio 23, Glucose Level 98, Calcium Level 8.0L, Phosphorus Level 2.8, Magnesium Level 2.2 Microbiology 04/11/19 Blood Culture - Preliminary, Resulted No growth 04/11/19 C. difficile GDH Antigen & Toxins - Final, Complete 04/11/19 MRSA Screen - Final, Complete MRSA not isolated 04/11/19 Urine Culture - Final, Complete NO GROWTH Assessment/Plan Assessment/Plan Assessment/Plan Small Bowel Intusseception -resolve ??Bowel obstruction at level of Sigmoid - dilated loops of large and small bowel Pneumonia - resolved, not much seen on initial CT Anemia - unsure etiology Pt still has some mild-moderate abdominal pain but really only with palpation, diffuse but possibly more in RLQ. Pt does not appear to be in any pain and his WBC is 6.1 today. Probably need to talk to family about plan; his intussuseption has resolved but now appears to have bowel obstruction, wonder if this is an ileus or something new. AAS from this am appears to show contrast in Descending colon, but CT read by radiologist as possibly having transition point in Sigmoid; which is on the right side of abdomen, not a volvulus. He may get dehydrated because he is npo right now, will start clears and IV fluids. Does not appear to need emergent surgery. Clinical Quality Measures DVT/VTE Risk/Contraindication: Risk Factor Score Per Nursin RFS Level Per Nursing on Admit: 4+=Very High ANGEI WILKES DO Apr 14, 2019 11:52 POS
[2019-04-14 12:00] VITALS: BP 153/78
--- NOTE | 2019-04-14 13:48 | Progress Note - Hospitalist ---
Subjective HPI/CC On Admission Date Seen by Provider: Apr 14, 2019 Time Seen by Provider: 12:45 Chief complaint: Altered mental status History of present illness: This is an 83-year-old white male who resides at home with his family who has a past medical history of dementia who presented with pneumonia and severe sepsis with elevated lactic acid of 16. At this current time patient is feeling much better. Poor historian noted. tare worker will be consulted for alf placement. He remains a DO NOT RESUSCITATE. He was found to have fecal matter all over his body. Patient denies any significant pain. Patient appears to be very frail. Subjective/Events-last exam Spoke with Dr. Brock CT scan with IV and p.o. contrast reviewed and no evidence of any intussusception but there is dilated bowel loops so he will hand everything off to Dr. Shoemaker and there is no evidence of any need for emergent surgery D POA and are at the bedside today Clear liquids will be started Overall doing pretty well but sleeping currently They have a lot of help at home but unsure why he was laying in feces and appeared to not be well cared for when he was admitted Focused Exam Lactate Level 04/11/19 21:45: Lactic Acid Level 6.59*H 04/12/19 01:31: Lactic Acid Level 2.13*H 04/12/19 03:48: Lactic Acid Level 2.18*H Time of Focused Exam: 20:50 Objective Exam Vital Signs Vital Signs Date Time Temp Pulse Resp B/P (MAP) Pulse Ox O2 Delivery O2 Flow Rate FiO2 04/14/19 12:00 36.6 61 18 153/78 (103) 96 Room Air 04/14/19 09:00 0.00 04/12/19 10:52 28 Capillary Refill : Greater Than 3 Seconds General Appearance: No Apparent Distress, WD/WN, Chronically ill, Cachetic Respiratory: Lungs Clear Cardiovascular: Regular Rate, Rhythm Results/Procedures Lab Laboratory Tests 04/14/19 04:54 Patient resulted labs reviewed. Assessment/Plan Assessment and Plan Assess & Plan/Chief Complaint Assessment: Sepsis Intussusception but CT scan repeat r/o that but dilated bowel noted Presumed pneumonia CT scan rules out Elevated lactic acid Severe dementia Dysphagia Severe debility Plan: Dr Shoemaker to evaluate him tomorrow Antibiotic coverage to be maintained Monitor closely Diagnosis/Problems Diagnosis/Problems (1) Severe sepsis (2) Dementia (3) Lactic acidosis (4) Poor prognosis (5) Do not resuscitate (6) Left upper lobe pneumonia Status: Acute Qualifiers: Pneumonia type: due to unspecified organism Qualified Codes: J18.1 - Lobar pneumonia, unspecified organism (7) Intussusception Status: Acute Clinical Quality Measures DVT/VTE Risk/Contraindication: Risk Factor Score Per Nursin RFS Level Per Nursing on Admit: 4+=Very High MILAGRO ROSENBAUM DO Apr 14, 2019 13:48 POS
[2019-04-14 15:58] VITALS: BP 157/85
[2019-04-14] MEDS: RIVAROXABAN 20 MG TABLET (XARELTO) PO SCH (16:31)
--- NOTE | 2019-04-14 17:56 | NUR ---
ADVISED JARAD JOAQUIN, THAT CATH WAS D/C'D
--- NOTE | 2019-04-14 17:56 | NUR ---
D/C CATHETER; PT TOLERATED WELL.
[2019-04-14 20:00] VITALS: BP 131/70
[2019-04-14] MEDS: TAMSULOSIN 0.4 MG (FLOMAX) CAP PO SCH (20:24)
[2019-04-14] MEDS: RIVASTIGMINE 1.5 MG (EXELON) CAP PO SCH (20:24)
[2019-04-15 00:44] VITALS: BP 129/86
[2019-04-15] MEDS: PIPERACILLIN/TAZOBACTAM (BULK) 4.5 GM in NS (IVPB) 100 ML IV SCH (04:29)
[2019-04-15 04:31] VITALS: BP 144/71
[2019-04-15 05:34] LABS: BASOPHILS % (AUTO) 1 % (0-10); EOSINOPHILS # (AUTO) 0.3 10^3/uL (0.0-0.3); EOSINOPHILS % (AUTO) 8 % (0-10); HEMATOCRIT 32 % (40-54); HEMOGLOBIN 10.8 G/DL (13.3-17.7); LYMPHOCYTES # (AUTO) 0.6 X 10^3 (1.0-4.0); LYMPHOCYTES % (AUTO) 16 % (12-44); MEAN CORPUSCULAR HEMOGLOBIN 31 PG (25-34); MEAN CORPUSCULAR HGB CONC 33 G/DL (32-36); MEAN CORPUSCULAR VOLUME 93 FL (80-99); MEAN PLATELET VOLUME 10.4 FL (7.4-10.4); MONOCYTES # (AUTO) 0.2 X 10^3 (0.0-1.0); MONOCYTES % (AUTO) 5 % (0-12); NEUTROPHILS # (AUTO) 2.8 X 10^3 (1.8-7.8); NEUTROPHILS % (AUTO) 71 % (42-75); PLATELET COUNT 118 10^3/uL (130-400); RED CELL DISTRIBUTION WIDTH 12.6 % (10.0-14.5); WHITE BLOOD COUNT 3.9 10^3/uL (4.3-11.0)
[2019-04-15 06:04] LABS: BUN/CREATININE RATIO 17; CALCIUM 7.7 MG/DL (8.5-10.1); CARBON DIOXIDE 26 MMOL/L (21-32); CHLORIDE 108 MMOL/L (98-107); CREATININE SERUM 0.65 MG/DL (0.60-1.30); GFR ESTIMATED > 60; GLUCOSE 82 MG/DL (70-105); MAGNESIUM 1.9 MG/DL (1.6-2.4); PHOSPHORUS 2.8 MG/DL (2.3-4.7); POTASSIUM 3.4 MMOL/L (3.6-5.0); SODIUM 142 MMOL/L (135-145)
[2019-04-15] MEDS: POTASSIUM CL 10MEQ/50ML IVPB 50 ML IV SCH (06:08)
[2019-04-15] MEDS: MAGNESIUM 1 GM/100 ML IVPB 100 ML IV SCH (06:08)
[2019-04-15] MEDS: KCL 20 MEQ TAB (K-DUR) PO SCH (06:09)
--- NOTE | 2019-04-15 06:31 | Pulmonary Progress Note ---
Subjective Time Seen by a Provider: 15:31 Subjective/Events-last exam No complications noted. Sepsis Event Evaluation Height, Weight, BMI Height: 6'0.00" Weight: 180lbs. 0.0oz. [id number]; 22.00 BMI Method:Stated Focused Exam Time of Focused Exam: 20:50 Exam Exam Vital Signs Date Time Temp Pulse Resp B/P (MAP) Pulse Ox O2 Delivery O2 Flow Rate FiO2 04/15/19 04:31 36.3 79 20 144/71 (95) 95 Room Air 04/15/19 00:44 36.3 52 20 129/86 (100) 96 Room Air 04/14/19 21:00 Room Air 0.00 04/14/19 20:00 36.3 61 20 131/70 (90) 94 Room Air 04/14/19 19:56 93 Room Air 04/14/19 15:58 36.2 63 18 157/85 (109) 95 Room Air 04/14/19 12:00 36.6 61 18 153/78 (103) 96 Room Air 04/14/19 09:49 92 Room Air 04/14/19 09:00 Room Air 0.00 04/14/19 08:00 36.4 56 18 149/73 (98) 95 Room Air I & O 04/15/19 07:00 Intake Total 1250 ml Output Total 800 ml Balance 450 ml Height & Weight Height: 6'0.00" Weight: 180lbs. 0.0oz. 81.767344gc; 22.00 BMI Method:Stated General Appearance: No Apparent Distress, WD/WN, Chronically ill, Cachetic HEENT: PERRL/EOMI, Other Respiratory: Lungs Clear Cardiovascular: Regular Rate, Rhythm Capillary Refill: Greater Than 3 Seconds Extremity: No Calf Tenderness, No Pedal Edema Neurologic/Psychiatric: Alert, Disoriented Skin: Normal Color, Warm/Dry Results Lab Laboratory Tests 04/14/19 04:54 04/15/19 05:20 Assessment/Plan Assessment/Plan MARISOL PNA - Resolved -Will need repeat CXR 6-8wks after discharge -Zosyn --Change to Augmentin x 2days then D/C 1/2 blood cultures positive from strep - Possible contamination. Intussusception -surgery following Diarrhea Cdiff neg KENDRA CR DO Apr 15, 2019 06:31 POS
[2019-04-15] MEDS: AUGMENTIN 875 MG TAB (AMOXICILLIN/CLAVULANATE) PO SCH ×2 (07:40→16:14)
[2019-04-15] MEDS: metroNIDAZOLE 500MG/100ML IVPB 100 ML IV SCH ×3 (07:41→21:20)
[2019-04-15 08:00] VITALS: BP 139/80
[2019-04-15 08:25] VITALS: BP 139/80
--- NOTE | 2019-04-15 08:42 | Diagnostic Imaging Report ---
INDICATION: Pneumonia. Intussusception. Sepsis. COMPARISON: 04/13/2019. FINDINGS: There is cardiomegaly. There is some minimal venous congestion. The mediastinum is unremarkable. There is no pleural effusion or pneumothorax. A pacemaker overlies the left hemithorax. There is a right internal jugular central venous catheter in place with its tip in the superior vena cava. IMPRESSION: Cardiomegaly and some minimal central pulmonary venous congestion. Dictated by: Dictated on workstation # [id number]
[2019-04-15] MEDS: DIVALPROX SPRINKLE 125 MG (DEPAKOTE) CAP PO SCH ×3 (08:52→21:11)
[2019-04-15] MEDS: SERTRALINE 50 MG (ZOLOFT) TABLET PO SCH (08:52)
[2019-04-15] MEDS: BETHANECHOL 25 MG (URECHOLINE) TAB PO SCH ×4 (08:52→21:12)
[2019-04-15] MEDS: CELECOXIB 100 MG (CeleBREX) CAP PO SCH (08:52)
[2019-04-15] MEDS: MEMANTINE 10 MG (NAMENDA) TABLET PO SCH ×2 (08:52→21:19)
[2019-04-15] MEDS: SINEMET 25/100 (CARBIDOPA/LEVODOPA) TAB PO SCH ×3 (08:52→21:11)
[2019-04-15] MEDS: PANTOPRAZOLE 40 MG (PROTONIX) TAB PO SCH (08:52)
[2019-04-15] MEDS: FUROSEMIDE 20 MG (LASIX) TAB PO SCH (08:52)
[2019-04-15] MEDS ORDERED: MAGNESIUM CITRATE 300 ML BTL PO NR (10:00)
--- NOTE | 2019-04-15 10:08 | Progress Note - Hospitalist ---
Subjective HPI/CC On Admission Date Seen by Provider: Apr 15, 2019 Time Seen by Provider: 09:00 Chief complaint: Altered mental status History of present illness: This is an 83-year-old white male who resides at home with his family who has a past medical history of dementia who presented with pneumonia and severe sepsis with elevated lactic acid of 16. At this current time patient is feeling much better. Poor historian noted. worker's compensation claims examiner will be consulted for retirement placement. He remains a DO NOT RESUSCITATE. He was found to have fecal matter all over his body. Patient denies any significant pain. Patient appears to be very frail. Subjective/Events-last exam Pt doing about the same PT and OT evaluation initiated Walker was brought in from his daughter that has a platform on the left for his hand Overall very poor prognosis given his end stage appearance of dementia and other issues Awaiting Dr. Shoemaker for plan Focused Exam Time of Focused Exam: 20:50 Objective Exam Vital Signs Vital Signs Date Time Temp Pulse Resp B/P (MAP) Pulse Ox O2 Delivery O2 Flow Rate FiO2 04/15/19 15:40 36.6 65 16 125/64 (84) 95 Room Air 04/14/19 21:00 0.00 04/12/19 10:52 28 Capillary Refill : Greater Than 3 Seconds General Appearance: No Apparent Distress, WD/WN, Cachetic Respiratory: Lungs Clear Cardiovascular: Regular Rate, Rhythm Neurologic/Psychiatric: Alert, Disoriented Results/Procedures Lab Laboratory Tests 04/15/19 05:20 Patient resulted labs reviewed. Assessment/Plan Assessment and Plan Assess & Plan/Chief Complaint Assessment: Sepsis Intussusception but CT scan repeat r/o that but dilated bowel noted Presumed pneumonia CT scan rules out Elevated lactic acid Severe dementia Dysphagia Severe debility Plan: Dr Shoemaker to evaluate him and we will await his plan PT/OT Antibiotic coverage to be maintained Monitor closely Diagnosis/Problems Diagnosis/Problems (1) Severe sepsis (2) Dementia (3) Lactic acidosis (4) Poor prognosis (5) Do not resuscitate (6) Left upper lobe pneumonia Status: Acute Qualifiers: Pneumonia type: due to unspecified organism Qualified Codes: J18.1 - Lobar pneumonia, unspecified organism (7) Intussusception Status: Acute Clinical Quality Measures DVT/VTE Risk/Contraindication: Risk Factor Score Per Nursin RFS Level Per Nursing on Admit: 4+=Very High MILAGRO ROSENBAUM DO Apr 15, 2019 10:08 POS
--- NOTE | 2019-04-15 12:56 | Occupational Therapy Eval ---
OT Evaluation-General/PLF Medical Diagnosis Admission Date Apr 11, 2019 at 20:24 Medical Diagnosis: pneumonia, sepsis Onset Date: Apr 15, 2019 Therapy Diagnosis Therapy Diagnosis: decreased functional mobility and ADL function Height/Weight Height (Feet): 6 Height (Inches): 0.00 Weight (Pounds): 180 Weight (Ounces): 0.0 Precautions Precautions/Isolations: Fall Prevention, Standard Precautions Safety Interventions: None Weight Bear Status Weight Bearing Restriction: Weight Bearing/Tolerated Referral Physician: Melina Mota Referral Reason: Activity Tolerance, Self Care, Evaluation/Treatment, Strengthening/ROM Medical History Pertinent Medical History: Atrial Fib, CAD, Dementia Additional Medical History Depression, chronic edema, fractures, gastrointestinal reflux Current History Pneumonia and sepsis Reviewed History: Yes Social History Home: Single Level Current Living Status: Spouse Entry Into Home: Ramp Steps Into Home: 0 Pt's daughter worked as caregiver, states pt max A with dressing, max A with toileting and showering tasks. Pt's daughter states pt receives home care givers from 9a- 5 p and 10 p- 6a; she states she would like him to receive assist 24 hours a day. ADL-Prior Level of Function SCALE: Activities may be completed with or without assistive devices. 1-Ocobrvnnei-pquiscb completes the activity by him/herself with no assistance from a helper. 5-Set-up or Clean-up Assistance-helper sets up or cleans up; patient completes activity. [place] assists only prior to or following the activity. 4-Supervision or Touching Assistance-helper provides verbal cues and/or touching/steadying and/or contact guard assistance as patient completes activity. Assistance may be provided throughout the activity or intermittently. 3-Partial/Moderate Assistance-helper does LESS THAN HALF the effort. [place] lifts, holds or supports trunk or limbs, but provides less than half the effort. 2-Substantial/Maximal Assistance-helper does MORE THAN HALF the effort. [place] lifts or holds trunk or limbs and provides more than half the effort. 5-Uhphbmgrk-ansrne does ALL the effort. Patient does none of the effort to complete the activity. Or, the assistance of 2 or more helpers is required for the patient to complete the activity. If activity was not attempted, code reason: 7-Patient Refused. 9-Not Applicable-not attempted and the patient did not perform the activity before the current illness, exacerbation or injury. 10-Not Attempted due to Environmental Limitations-(lack of equipment, weather restraints, etc.). 88-Not Attempted due to Medical Conditions or Safety Concerns. ADL PLOF Comments Per pt's family members pt required assist with all I/ADLs excluding feeding, though at times when RA flairs up, pt requires assist with feeding as well. Self Care: Needed Some Help Functional Cognition: Needed Some Help DME/Equipment: Bedside Commode (ultize for shower chair), Grab Bars, Shower DME/Equipment Comments Pt requires SBA/ CGA with use of FWW for functional mobility Drive Self: No OT Current Status Subjective Pt states a bit of pain, but more "nausea" than pain. Pt states no pain anywhere once asked again. Pt oriented to person only. Pt agreeable to OT evaluation. Pt's and daughter present through session. Mental Status/Objective Patient Orientation: Person Attachments: [place] Catheter Current Glasses/Contacts: Yes Hearing Aids: No Dentures/Partials: No Hand Dominance: Right Upper Extremity ROM Impaired BUE Upper Extremity Coordination Impaired BUE Upper Extremity Sensation in tact Upper Extremity Strength Impaired BUE ADL-Treatment Eating (QC): 3 (assist with hold cup to place to mouth) Upper Body Dressing (QC): 3 (Placement and sequencing cues for UB dressing with gown.) Other Treatments Pt's daughter states she was caregiver for 2 months; pt poor historian, pt's daughter gives prior level. Pt oriented to person only, completes tasks with mod cues for directionality. Pt completes donning gown with min A, drinks with cup with min A, face wiping with s/u. Pt's daughter states they receive caregiver assist 9a-5p and 10p- 6 a. Pt's daughter states she would like for them to receive more assist and has been speaking iwth the classification case manager. Pt not able to complete reach knees/ socks while seated in bed. Pt and family educated on benefits of seated/ upright position and breathing throughout day. Pt left in bed, call light in reach, all needs met. Education OT Patient Education: Correct positioning, Energy conservation, Instructions to caregiver, Modified ADL techniques, Purpose of tx/functional activities, Rehab process Teaching Recipient: Patient, Family Teaching Methods: Demonstration, Discussion Response to Teaching: Verbalize Understanding, Return Demonstration, Reinforcement Needed OT Short Term Goals Short Term Goals Grooming(FIM): 6 Lower Body Dressing(FIM): 2 Additional Short Term Goals: 1-Demonstrate ADL Tasks, 2-Verbalize Understanding, 3-ImproveStrength/Huey 1=Demonstrate adherence to instructed precautions during ADL tasks. 2=Patient will verbalize/demonstrate understanding of assistive devices/modifications for ADL. 3=Patient will improve strength/tolerance for activity to enable patient to perform ADL's. OT Diet Assistant Goals Diet Assistant Goals Eating (QC): 6 Oral Hygiene (QC): 3 Shower/Bathe Self (QC): 2 Upper Body Dressing (QC): 3 Lower Body Dressing (QC): 2 On/Off Footwear (QC): 2 Toileting Hygiene (QC): 2 Toilet/Commode Transfer (QC): 3 Additional Goals: 1-Demonstrate ADL Tasks, 2-Verbalize Understanding, 3- ImproveStrength/Huey 1=Demonstrate adherence to instructed precautions during ADL tasks. 2=Patient will verbalize/demonstrate understanding of assistive de vices/modifications for ADL. 3=Patient will improve strength/tolerance for activity to enable patient to perform ADL's. OT Education/Plan Problem List/Assessment Assessment: Decreased Activ Tolerance, Decreased UE Strength, Impaired Cognition, Impaired Coordination, Impaired I ADL's, Impaired Self-Care Skills Discharge Recommendations Plan/Recommendations: Continue POC Therapy Discharge Recommendati: 24 Hour Supervision Equpiment Recommendations-D/C: None Treatment Plan/Plan of Care Treatment,Training & Education: Yes Patient would benefit from OT for education, treatment and training to promote independence in ADL's, mobility, safety and/or upper extremity function for ADL's. Pt would benefit in education of AE/ feeding tools, endurance/ strength, and safety during functional mobility. Plan of Care: ADL Retraining, Caregiver Training, Functional Mobility, UE Funct Exercise/Act Treatment Duration: Apr 22, 2019 Frequency: 5 times per week Estimated Hrs Per Day: .25 hour per day Agreement: Yes Rehab Potential: Fair Time/GCodes Start Time: 10:45 Stop Time: 11:00 Total Time Billed (hr/min): 15 Billed Treatment Time 1, EVM (15) FAISAL LENNON OTR Apr 15, 2019 12:56 POS
--- NOTE | 2019-04-15 13:25 | NUR ---
THIS RN ATTEMPTED TO CALL [facility] TO OBTAIN FLU VACCINE CLARIFICATION. PT'S DAUGHTER/DPOA UNSURE IF PT HAD THE FLU VACCINE AT HIS MOST RECENT DR VISIT. NO ANSWER FROM [facility].
--- NOTE | 2019-04-15 14:47 | Physical Therapy Evaluation ---
PT Evaluation-General Medical Diagnosis Admission Date Apr 11, 2019 at 20:24 Medical Diagnosis: pneumonia, sepsis Onset Date: Apr 14, 2019 Therapy Diagnosis Therapy Diagnosis: imbalance, debility, weakness, decreased activity vanessa Height/Weight Height (Feet): 6 Height (Inches): 0.00 Weight (Pounds): 180 Weight (Ounces): 0.0 Precautions Precautions/Isolations: Fall Prevention, Standard Precautions Weight Bear Status Right Lower Extremity: Right Full Weight Bearing Left Lower Extremity: Left Full Weight Bearing Referral Physician: Melina Mota Reason for Referral: Evaluation/Treatment Medical History Pertinent Medical History: Atrial Fib, CAD, Dementia Additional Medical History Past Medical History Surgeries: Defibrillator, Orthopedic, Pacemaker Cardiac: Atrial Fibrillation, Chronic Edema/Swelling, Coronary Artery Disease Neurological: Dementia Reproductive: No Genitourinary: Prostate Problems Gastrointestinal: Gastroesophageal Reflux Musculoskeletal: Fractures Psychosocial: Depression Adverse Reaction to Blood Connelly: No Reviewed History: Yes Social History Home: Single Level Current Living Status: Spouse Entry Into Home: Ramp PT Steps Into Home: 0 Pt and spouse are poor historians. Information is from H&P notes. Prior Prior Level of Function SCALE: Activities may be completed with or without assistive devices. 3-Yghjpwxzoj-hmdbsio completes the activity by him/herself with no assistance from a helper. 5-Set-up or Clean-up Assistance-helper sets up or cleans up; patient completes activity. [place] assists only prior to or following the activity. 4-Supervision or Touching Assistance-helper provides verbal cues and/or touching/steadying and/or contact guard assistance as patient completes activity. Assistance may be provided throughout the activity or intermittently. 3-Partial/Moderate Assistance-helper does LESS THAN HALF the effort. [place] lifts, holds or supports trunk or limbs, but provides less than half the effort. 2-Substantial/Maximal Assistance-helper does MORE THAN HALF the effort. [place] lifts or holds trunk or limbs and provides more than half the effort. 8-Pqidyzmno-wuyeaz does ALL the effort. Patient does none of the effort to complete the activity. Or, the assistance of 2 or more helpers is required for the patient to complete the activity. If activity was not attempted, code reason: 7-Patient Refused. 9-Not Applicable-not attempted and the patient did not perform the activity before the current illness, exacerbation or injury. 10-Not Attempted due to Environmental Limitations-(lack of equipment, weather restraints, etc.). 88-Not Attempted due to Medical Conditions or Safety Concerns. Bed Mobility: 2 Transfers (B,C,W/C): 2 Gait: 2 Indoor Mobility (Ambulation): Dependent Stairs: Dependent Prior Devices Use: Manual wheelchair, Walker Prior Device Use: reports pt uses L platform walker at home. pt and spouse are poor historians, prior LOF are estimates from what PT was able to do with the pt. PT Evaluation-Current Subjective pt in bed pre-tx. pt agrees to PT this afternoon. pt reports no pain at this time. Pt is visually soiled with BM in bed and is unaware of this. Pt in recliner post-tx with chair alarm set. Pt spouse in room for duration of tx. Pt has call light, room phone, and tray table in reach with all needs met at this time. Objective Patient Orientation: Confused, Mumbles Problem Solving: Poor Attachments: Central Line, SCD's, Townsend Catheter, Other-See Comments (b/l foot drop boots), IV ROM/Strength ROM Lower Extremities B/L feet unable to move past neutral into any dorsiflexion while sitting. Strength Lower Extremities B/L hip flexion 4/5 B/L knee flexion & extension globally 4-/5 Integumentary/Posture Integumentary see nursing notes Bowel Incontinence: Yes Bladder Incontinence: Yes Posture pt stands with mod-max retropulsion pushing back with weight over heels Sensory Vision: Unable to Assess Hearing: Functional Sensation Right Lower Extremit: Intact Sensation Left Lower Extremity: Intact Transfers Lying to Sitting/Side of Bed(Q: 3 (modA) Sit to Stand (QC): 2 (maxA) Chair/Jfa-uk-Owmum Xfer(QC): 2 (MaxA) sit to stand with short choppy steps Gait Does the Patient Walk?: Yes Mode of Locomotion: Both Anticipated Mode of Locomotion: Wheelchair Distance: 1=up to 49 ft Distance: 3'x2 Gait Assistive Device: FWW (L platform) Comments/Gait Description pt takes short choppy steps maxA to transfer to bed side commode then to chair Wheelchair Training Does the Pt Use a Wheelchair?: No Balance Sitting Static: Fair Sitting Dynamic: Fair Standing Static: Poor Standing Dynamic: Poor Treatment Pt performed bed mobility training, transfer training, ambulation training, toileting, sit to stands, and education this date. pt performed LE strengthening exercises 1set 10reps LAQ's, hip flexion. Assessment/Needs Pt in bed pre-tx unaware of soiled state from BM. Pt was unable to answer questions with clarity and seems very confused. Pt is MaxA with any transfers that include standing. Pt's retropulsion make it very unsafe for independent standing. Pt is a high fall risk due to the retropulsion and the fact that pt keeps the walker too far infront of himself. Rehab Potential: Poor PT Skilled Nursing Goals Hockey Scout Goals PT Skilled Nursing Goals Time Frame: Apr 22, 2019 Sit to Lying (QC): 3 (Olesya) Lying-Sitting on Side/Bed(QC): 3 (Olesya) Sit to Stand (QC): 3 (modA) Chair/Edr-ks-Olkne Xfer(QC): 3 (modA) Distance: 50' Walk 10 feet (QC): 3 (Olesya) Walk 50ft with 2 Turns (QC): 3 (Olesya) Gait Assistive Device: FWW PT Plan Problem List Problem List: Activity Tolerance, Functional Strength, Safety, Balance, Gait, Transfer, Bed Mobility, ROM Treatment/Plan Treatment Plan: Continue Plan of Care Treatment Plan: Bed Mobility, Concurrent Therapy, Education, Functional Activity Huey, Functional Strength, Gait, Safety, Therapeutic Exercise, Transfers Frequency: 6 times per week Estimated Hrs Per Day: .25 hour per day Patient and/or Family Agrees t: Yes Safety Risks/Education Patient Education: Gait Training, Transfer Techniques, Correct Positioning, Safety Issues Teaching Recipient: Patient Teaching Methods: Demonstration, Discussion Response to Teaching: Return Demonstration, Reinforcement Needed Discharge Recommendations Plan Pt will perform balance training, bed mobility training, transfer training, skilled ambulation training, LE strengthening exercises, and education Therapy Discharge Recommendati: 24 Hour Supervision, Assisted Living, Other, See Comments (mcc) Time/GCodes Time In: 1341 Time Out: 1408 Total Billed Treatment Time: 27 Total Billed Treatment 1 visit EVKya 15' FA 12' GISELE DE PAZ PT Apr 15, 2019 14:47 POS
[2019-04-15 15:40] VITALS: BP 125/64
[2019-04-15] MEDS: RIVAROXABAN 20 MG TABLET (XARELTO) PO SCH (16:14)
--- NOTE | 2019-04-15 16:20 | Progress Note ---
Subjective Date Seen by a Provider: Apr 15, 2019 Time Seen by a Provider: 16:00 Subjective/Events-last exam doing well, no complaints however hx dementia. having BM's and no abd di stention. repeat CT shows inflammation sigmoid and rectum which may indicate ischemic colitis vs. neoplasm. scheduled for colonoscopy tomorrow. Focused Exam Time of Focused Exam: 20:50 Objective Exam Vital Signs Date Time Temp Pulse Resp B/P (MAP) Pulse Ox O2 Delivery O2 Flow Rate FiO2 04/15/19 15:40 36.6 65 16 125/64 (84) 95 Room Air 04/15/19 09:00 Room Air 04/15/19 08:25 36.6 60 95 04/15/19 08:00 36.6 60 18 139/80 (99) 95 Room Air 04/15/19 04:31 36.3 79 20 144/71 (95) 95 Room Air 04/15/19 00:44 36.3 52 20 129/86 (100) 96 Room Air 04/14/19 21:00 Room Air 0.00 04/14/19 20:00 36.3 61 20 131/70 (90) 94 Room Air 04/14/19 19:56 93 Room Air I & O 04/15/19 07:00 Intake Total 1250 ml Output Total 800 ml Balance 450 ml Capillary Refill : Greater Than 3 Seconds General Appearance: No Apparent Distress HEENT: PERRL/EOMI Neck: Full Range of Motion Respiratory: Chest Non Tender, Lungs Clear, Normal Breath Sounds Cardiovascular: Regular Rate, Rhythm Gastrointestinal: normal bowel sounds, soft Extremity: Normal Capillary Refill Neurologic/Psychiatric: Alert, Disoriented Skin: Normal Color Lymphatic: No Adenopathy Results Lab Laboratory Tests 04/15/19 05:20: White Blood Count 3.9L, Red Blood Count 3.46L, Hemoglobin 10.8L, Hematocrit 32L, Mean Corpuscular Volume 93, Mean Corpuscular Hemoglobin 31, Mean Corpuscular Hemoglobin Concent 33, Red Cell Distribution Width 12.6, Platelet Count 118L, Mean Platelet Volume 10.4, Neutrophils (%) (Auto) 71, Lymphocytes (%) (Auto) 16, Monocytes (%) (Auto) 5, Eosinophils (%) (Auto) 8, Basophils (%) (Auto) 1, Neutrophils # (Auto) 2.8, Lymphocytes # (Auto) 0.6L, Monocytes # (Auto) 0.2, Eosinophils # (Auto) 0.3, Basophils # (Auto) 0.0, Sodium Level 142, Potassium Level 3.4L, Chloride Level 108H, Carbon Dioxide Level 26, Anion Gap 8, Blood Urea Nitrogen 11, Creatinine 0.65, Estimat Glomerular Filtration Rate > 60, BUN/Creatinine Ratio 17, Glucose Level 82, Calcium Level 7.7L, Phosphorus Level 2.8, Magnesium Level 1.9 Microbiology 04/11/19 Blood Culture - Preliminary, Resulted No growth 04/11/19 C. difficile GDH Antigen & Toxins - Final, Complete 04/11/19 MRSA Screen - Final, Complete MRSA not isolated 04/11/19 Urine Culture - Final, Complete NO GROWTH Assessment/Plan Assessment/Plan Assess & Plan/Chief Complaint rectal-sigmoid ischemic colitis vs. neoplasm. having BM's so no full obstruction . colonoscopy in am. Clinical Quality Measures DVT/VTE Risk/Contraindication: Risk Factor Score Per Nursin RFS Level Per Nursing on Admit: 4+=Very High SABI KATZ MD Apr 15, 2019 16:20 POS
[2019-04-15] MEDS: TAMSULOSIN 0.4 MG (FLOMAX) CAP PO SCH (21:12)
[2019-04-15] MEDS: RIVASTIGMINE 1.5 MG (EXELON) CAP PO SCH (21:12)
[2019-04-16] VITALS (12 sets, daily range): BP systolic 117–189; BP diastolic 56–87
--- NOTE | 2019-04-16 02:16 | Conscious Sedation/ASA ---
Conscious Sedation Pre-Proced Time 02:00 ASA Score 3 For ASA 3 and 4: Consider anesthesia and medical clearance. Also, for patients with a history of failed moderate sedation consider anesthesia. Airway Lungs Heart ASA score ASA 1: a normal healthy patient ASA 2: a patient with a mild systemic disease (mid diabetes, controlled hypertension, obesity ASA 3: a patient with a severe systemic disease that limits activity (angina, COPD, prior Myocardial infarction) ASA 4: a patient with an incapacitating disease that is a constant threat to life (CHF, renal failure) ASA 5: a moribund patient not expected to survive 24 hrs. (ruptured aneurysm) ASA 6: a declared brain- patient whose organs are being harvested. For emergent operations, add the letter E after the classification Mallampati Classification Grade 2 Sedation Plan Analgesia, Amnesia, Plan communicated to team members, Discussed options with patient/fam, Discussed risks with patient/fam The patient is an appropriate candidate to undergo the planned procedure, sedation, and anesthesia. The patient immediately re-assessed prior to indication. SABI KATZ MD Apr 16, 2019 02:16 POS
--- NOTE | 2019-04-16 02:18 | Progress Note-Pre Operative ---
Pre-Operative Progress Note H&P Reviewed The H&P was reviewed, patient examined and no changes noted. Date Seen by Provider: Apr 16, 2019 Time Seen by Provider: 02:00 Date H&P Reviewed: Apr 16, 2019 Time H&P Reviewed: 02:00 Pre-Operative Diagnosis: colitis SABI KATZ MD Apr 16, 2019 02:18 POS
[2019-04-16] MEDS: metroNIDAZOLE 500MG/100ML IVPB 100 ML IV SCH ×3 (05:45→20:37)
[2019-04-16 06:03] LABS: BASOPHILS % (AUTO) 1 % (0-10); EOSINOPHILS # (AUTO) 0.3 10^3/uL (0.0-0.3); EOSINOPHILS % (AUTO) 8 % (0-10); HEMATOCRIT 33 % (40-54); LYMPHOCYTES # (AUTO) 0.8 X 10^3 (1.0-4.0); LYMPHOCYTES % (AUTO) 21 % (12-44); MEAN CORPUSCULAR HEMOGLOBIN 31 PG (25-34); MEAN CORPUSCULAR HGB CONC 34 G/DL (32-36); MEAN CORPUSCULAR VOLUME 92 FL (80-99); MEAN PLATELET VOLUME 9.9 FL (7.4-10.4); MONOCYTES # (AUTO) 0.3 X 10^3 (0.0-1.0); MONOCYTES % (AUTO) 8 % (0-12); NEUTROPHILS # (AUTO) 2.5 X 10^3 (1.8-7.8); NEUTROPHILS % (AUTO) 63 % (42-75); PLATELET COUNT 155 10^3/uL (130-400); RED CELL DISTRIBUTION WIDTH 12.6 % (10.0-14.5); WHITE BLOOD COUNT 3.9 10^3/uL (4.3-11.0)
[2019-04-16 06:18] LABS: BUN/CREATININE RATIO 13; CALCIUM 7.8 MG/DL (8.5-10.1); CARBON DIOXIDE 25 MMOL/L (21-32); CHLORIDE 108 MMOL/L (98-107); CREATININE SERUM 0.71 MG/DL (0.60-1.30); GFR ESTIMATED > 60; GLUCOSE 80 MG/DL (70-105); MAGNESIUM 1.9 MG/DL (1.6-2.4); PHOSPHORUS 1.9 MG/DL (2.3-4.7); POTASSIUM 3.1 MMOL/L (3.6-5.0); SODIUM 141 MMOL/L (135-145)
[2019-04-16] MEDS: AUGMENTIN 875 MG TAB (AMOXICILLIN/CLAVULANATE) PO SCH ×2 (07:03→17:34)
[2019-04-16] MEDS: KCL 20 MEQ TAB (K-DUR) PO SCH (07:04)
[2019-04-16] MEDS ORDERED: NS IV 500 ML 500 ML IV ONE ×2 (07:30→13:30)
--- NOTE | 2019-04-16 07:32 | Diagnostic Imaging Report ---
INDICATION: Pneumonia. COMPARISON: 04/15/2019. FINDINGS: Single frontal radiographic view of the chest was obtained and shows normal cardiac silhouette and pulmonary vasculature. Left-sided dual-lead pacemaker is noted. Right internal jugular central venous catheter is also noted. Lungs show minimal increased interstitial opacities within the left mid and lower lung field. Right lung is relatively clear. There is no large effusion or pneumothorax. Osseous structures show no acute abnormalities. IMPRESSION: 1. Findings concerning for increasing interstitial edema or pneumonia within the left lower lung field. Continued follow-up is advised. Dictated by: Dictated on workstation # [id number]
--- NOTE | 2019-04-16 07:50 | Physical Therapy Progress Note ---
Therapy Progress Note Patient to have procedure on this date. PT will resume in GISELE Oviedo PT Apr 16, 2019 07:50 POS
--- NOTE | 2019-04-16 08:00 | Pulmonary Progress Note ---
KASI RODNEY A MEDICAL STUDENT 04/16/19 0800: Subjective Date Seen by a Provider: Apr 16, 2019 Time Seen by a Provider: 07:45 Subjective/Events-last exam Pt states his breathing feels much improved. Pt was on Zosyn, changed to Augmentin yesterday. Sepsis Event Evaluation Height, Weight, BMI Height: 6'0.00" Weight: 180lbs. 0.0oz. 81.768393jq; 22.00 BMI Method:Stated Focused Exam Time of Focused Exam: 20:50 Exam Exam Vital Signs Date Time Temp Pulse Resp B/P (MAP) Pulse Ox O2 Delivery O2 Flow Rate FiO2 04/16/19 00:00 36.6 61 16 125/64 (84) 94 Room Air 04/15/19 21:55 96 Room Air 04/15/19 21:00 95 Room Air 0.00 04/15/19 15:40 36.6 65 16 125/64 (84) 95 Room Air 04/15/19 09:00 Room Air 04/15/19 08:25 36.6 60 95 04/15/19 08:00 36.6 60 18 139/80 (99) 95 Room Air I & O 04/16/19 07:00 Intake Total 1370 ml Output Total 1425 ml Balance -55 ml Height & Weight Height: 6'0.00" Weight: 180lbs. 0.0oz. 81.373125na; 22.00 BMI Method:Stated General Appearance: No Apparent Distress, WD/WN, Cachetic HEENT: PERRL/EOMI Neck: Full Range of Motion Respiratory: Lungs Clear, No Respiratory Distress; No Decreased Breath Sounds Cardiovascular: Regular Rate, Rhythm Capillary Refill: Greater Than 3 Seconds Gastrointestinal: normal bowel sounds, soft Extremity: Normal Capillary Refill Neurologic/Psychiatric: Alert, Disoriented Skin: Normal Color Lymphatic: No Adenopathy Results Lab Laboratory Tests 04/15/19 05:20 04/16/19 05:35 Assessment/Plan Assessment/Plan MARISOL PNA - Resolved -Will need repeat CXR 6-8wks after discharge -Zosyn was changed to Augmentin yesterday -Continue Augmentin x1 day then D/C 1/2 blood cultures positive from strep - Possible contamination. Interstitial edema -CXR today shows increased interstitial edema vs LLL PNA -continue Augmentin -lasix? Intussusception -surgery following, had colonoscopy this morning Diarrhea Cdiff neg SILVER WORRELL DO 04/16/19 1533: Exam Exam General Appearance: No Apparent Distress, WD/WN HEENT: PERRL/EOMI Neck: Full Range of Motion Respiratory: Lungs Clear, No Respiratory Distress; No Decreased Breath Sounds Cardiovascular: Regular Rate, Rhythm Gastrointestinal: normal bowel sounds Extremity: Normal Capillary Refill Neurologic/Psychiatric: Alert Assessment/Plan Assessment/Plan MARISOL PNA - Resolved -Will need repeat CXR 6-8wks after discharge -Zosyn was changed to Augmentin yesterday -Continue Augmentin x1 day then D/C 1/2 blood cultures positive from strep - Possible contamination. Interstitial edema -CXR today shows increased interstitial edema vs LLL PNA -continue Augmentin -lasix? Intussusception -surgery following, had colonoscopy this morning Diarrhea Cdiff neg Supervisory-Addendum Brief Verification & Attestation Participated in pt care: history Personally performed: exam, history Care discussed with: Medical Student Procedures: n/a Verification and Attestation of Medical Student E/M Service A medical student performed and documented this service in my presence. I reviewed and verified all information documented by the medical student and made modifications to such information, when appropriate. I personally performed the physical exam and medical decision making. Silver Worrell, Apr 16, 2019,15:33 KASI RODNEY MEDICAL STUDENT Apr 16, 2019 08:00 SILVER NELSON DO Apr 16, 2019 15:33 POS
[2019-04-16] MEDS ORDERED: NS IV 500 ML 500 ML ONE ×2 (08:20→13:01)
[2019-04-16] MEDS: POTASSIUM CL 10MEQ/50ML IVPB 50 ML IV SCH ×5 (08:25→12:01)
--- NOTE | 2019-04-16 09:00 | NUR ---
This RN removed Townsend per doctor orders.
--- NOTE | 2019-04-16 09:16 | Progress Note - Hospitalist ---
Subjective HPI/CC On Admission Date Seen by Provider: Apr 16, 2019 Time Seen by Provider: 08:45 Chief complaint: Altered mental status History of present illness: This is an 83-year-old white male who resides at home with his family who has a past medical history of dementia who presented with pneumonia and severe sepsis with elevated lactic acid of 16. At this current time patient is feeling much better. Poor historian noted. fabric worker foreman will be consulted for correction placement. He remains a DO NOT RESUSCITATE. He was found to have fecal matter all over his body. Patient denies any significant pain. Patient appears to be very frail. Subjective/Events-last exam Ready for colonoscopy today by Dr. Shoemaker. Will discontinue catheter. PT and OT ordered. Needs to go to a correction but family resistant to that plan. Will plan on waiting for colonoscopy to proceed on to the next step of his care. Overall prognosis is extremely poor. Review of Systems Neurological: Confusion Focused Exam Time of Focused Exam: 20:50 Objective Exam Vital Signs Vital Signs Date Time Temp Pulse Resp B/P (MAP) Pulse Ox O2 Delivery O2 Flow Rate FiO2 04/16/19 18:36 Room Air 04/16/19 16:18 36.6 76 16 138/56 (83) 97 04/16/19 13:50 3 04/12/19 10:52 28 Capillary Refill : Less Than 3 SecondsGreater Than 3 Seconds General Appearance: No Apparent Distress, WD/WN, Chronically ill, Cachetic Respiratory: Lungs Clear Cardiovascular: Regular Rate, Rhythm Neurologic/Psychiatric: Alert, Disoriented Results/Procedures Lab Laboratory Tests 04/16/19 05:35 Patient resulted labs reviewed. Assessment/Plan Assessment and Plan Assess & Plan/Chief Complaint Assessment: Sepsis Intussusception but CT scan repeat r/o that but dilated bowel noted Presumed pneumonia CT scan rules out Elevated lactic acid Severe dementia Dysphagia Severe debility Plan: Dr Shoemaker to peform C scope today PT/OT Antibiotic coverage to be maintained Monitor closely Diagnosis/Problems Diagnosis/Problems (1) Severe sepsis (2) Dementia (3) Lactic acidosis (4) Poor prognosis (5) Do not resuscitate (6) Left upper lobe pneumonia Status: Acute Qualifiers: Pneumonia type: due to unspecified organism Qualified Codes: J18.1 - Lobar pneumonia, unspecified organism (7) Intussusception Status: Acute Clinical Quality Measures DVT/VTE Risk/Contraindication: Risk Factor Score Per Nursin RFS Level Per Nursing on Admit: 4+=Very High MILAGRO ROSENBAUM DO Apr 16, 2019 09:15 POS
[2019-04-16] MEDS ORDERED: FLEET ENEMA ADULT 1 EA BTL PR ONE (10:45)
[2019-04-16] MEDS: MAGNESIUM 1 GM/100 ML IVPB 100 ML IV SCH (11:33)
[2019-04-16] MEDS: CELECOXIB 100 MG (CeleBREX) CAP PO SCH (11:37)
[2019-04-16] MEDS: SINEMET 25/100 (CARBIDOPA/LEVODOPA) TAB PO SCH ×3 (11:38→20:36)
[2019-04-16] MEDS: DIVALPROX SPRINKLE 125 MG (DEPAKOTE) CAP PO SCH ×3 (11:38→20:36)
[2019-04-16] MEDS: MEMANTINE 10 MG (NAMENDA) TABLET PO SCH ×2 (11:38→20:36)
[2019-04-16] MEDS: FUROSEMIDE 20 MG (LASIX) TAB PO SCH (11:38)
[2019-04-16] MEDS: PANTOPRAZOLE 40 MG (PROTONIX) TAB PO SCH (11:38)
[2019-04-16] MEDS: SERTRALINE 50 MG (ZOLOFT) TABLET PO SCH (11:39)
[2019-04-16] MEDS: BETHANECHOL 25 MG (URECHOLINE) TAB PO SCH ×4 (11:39→20:36)
[2019-04-16] MEDS ORDERED: fentaNYL INJECTION 100 MCG/2 ML AMP ONE (13:00)
[2019-04-16] MEDS ORDERED: LIDOCAINE JELLY 2% 6 ML SYRINGE ONE (13:00)
[2019-04-16] MEDS ORDERED: MIDAZOLAM 5 MG/5 ML (VERSED) VIAL ONE (13:01)
--- NOTE | 2019-04-16 13:12 | Occ Therapy Progress Note ---
Therapy Progress Note Patient to have procedure on this date. OT will resume in NANCY Macdonald Apr 16, 2019 13:12 POS
[2019-04-16] MEDS ORDERED: NS IV 500 ML 500 ML IV PRN (13:22)
[2019-04-16] MEDS: MIDAZOLAM 5 MG/5 ML (VERSED) VIAL IV PRN ×3 (13:26→13:40)
[2019-04-16] MEDS ORDERED: fentaNYL INJECTION 100 MCG/2 ML AMP IVP ONE (13:30)
[2019-04-16] MEDS ORDERED: LIDOCAINE JELLY 2% 6 ML SYRINGE MM PRN (13:30)
--- NOTE | 2019-04-16 14:24 | NUR ---
patient stable and back from colonoscopy at this time
--- NOTE | 2019-04-16 14:27 | Progress Note-Post Operative ---
Post-Operative Progess Note Surgeon (s)/Kelp Gatherer (s) Surgeon SABI KATZ MD Kelp Gatherer: none Pre-Operative Diagnosis colitis Post-Operative Diagnosis moderate proctitis, distal sigmoid colitis. Procedure & Operative Findings Date of Procedure 04/16/19 Procedure Performed/Findings colonoscopy with bx. Anesthesia Type cs Estimated Blood Loss Estimated blood loss (mL): minimal Specimens/Packing Specimens Removed sigmoid colon, rectum SABI KATZ MD Apr 16, 2019 14:27 POS
--- NOTE | 2019-04-16 17:33 | NUR ---
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 He welcomed prayer for healing and for his family's wellbeing.
[2019-04-16] MEDS: RIVAROXABAN 20 MG TABLET (XARELTO) PO SCH (17:34)
--- NOTE | 2019-04-16 18:48 | OPERATIVE REPORT ---
DATE OF SERVICE: 04/16/2019 ATTENDING PRIMARY CARE PHYSICIAN: Dr. Stone. ADMITTING PHYSICIAN: Dr Doherty. PREOPERATIVE DIAGNOSES: Colitis, diarrhea, abdominal pain. POSTOPERATIVE DIAGNOSES: Proctitis and colitis of the sigmoid colon. No polyps or any neoplasms identified. PROCEDURE: Colonoscopy with biopsy. SURGEON: Sabi Shoemaker MD ANESTHESIA: Conscious sedation. ESTIMATED BLOOD LOSS: Minimal. FINDINGS: Same as postoperative diagnoses. DISPOSITION: The patient tolerated the procedure well. INDICATIONS: The patient is an 83-year-old male who presented with mental status changes as well as abdominal distention and pain. A CT scan of the chest and abdomen were performed, which did show pulmonary nodules as well as atelectasis as well as pneumonia. The CT scan reading also indicated an intussusception; however, there was no proximal dilatation of small bowel and he was asymptomatic with no nausea, no vomiting. The CT scan also did show inflammation of the rectum and distal colon. The patient does have a history of dimension. However, the family does not report any history of red blood per rectum. He has also not had a colonoscopy up to this point in his life. DESCRIPTION OF PROCEDURE: The patient was brought to the endoscopy suite, laid in left lateral decubitus position. After adequate IV pain and sedative medications and conscious sedation anesthesia, a digital rectal examination was performed. Chronic stage II external and internal hemorrhoids were identified, not actively edematous nor inflamed and no bleeding. Normal sphincter tone was felt and there were no palpable masses. Prostate gland was palpable and appeared normal. The endoscope was then intubated into the anus and rectum gently insufflated. The endoscope was then advanced to the valves of Ahn of the rectum, mild to moderate proctitis identified. This did extend into the distal sigmoid colon. This region seems to be a watershed area of vasculature and may be related to ischemic colitis; however, may also be due to inflammatory bowel disease versus a bacterial overgrowth. Biopsies were taken of this region using forceps with visualization of good hemostasis. The endoscope was then advanced through the remainder of the descending, transverse and ascending colon to the cecum. These segments were normal. There were no polyps or any neoplasms identified. The endoscope was then slowly withdrawn while taking a second look and suctioning of residual air with no additional findings. The patient tolerated the procedure well. We will await the biopsy results. If this is consistent with an inflammatory bowel disease, he may benefit from oral medical therapy including mesalamine. This could also be related to an ischemic colitis and if so, he would just need to proceed with optimization of medical status and prevent dehydration and hypovolemic states. We will also check for Clostridium difficile. Job ID: [id number] DocumentID: [id number] Dictated Date: 04/16/2019 14:03:33 Bag Inspector Date: 04/16/2019 18:47:58 Dictated By: SABI SHOEMAKER MD
[2019-04-16] MEDS: TAMSULOSIN 0.4 MG (FLOMAX) CAP PO SCH (20:36)
[2019-04-16] MEDS: RIVASTIGMINE 1.5 MG (EXELON) CAP PO SCH (20:36)
[2019-04-17 00:30] VITALS: BP 146/71
[2019-04-17 04:49] LABS: BASOPHILS % (AUTO) 1 % (0-10); EOSINOPHILS # (AUTO) 0.4 10^3/uL (0.0-0.3); EOSINOPHILS % (AUTO) 10 % (0-10); HEMATOCRIT 31 % (40-54); HEMOGLOBIN 10.6 G/DL (13.3-17.7); LYMPHOCYTES # (AUTO) 0.8 X 10^3 (1.0-4.0); LYMPHOCYTES % (AUTO) 20 % (12-44); MEAN CORPUSCULAR HEMOGLOBIN 32 PG (25-34); MEAN CORPUSCULAR HGB CONC 35 G/DL (32-36); MEAN CORPUSCULAR VOLUME 91 FL (80-99); MEAN PLATELET VOLUME 9.4 FL (7.4-10.4); MONOCYTES # (AUTO) 0.3 X 10^3 (0.0-1.0); MONOCYTES % (AUTO) 8 % (0-12); NEUTROPHILS # (AUTO) 2.5 X 10^3 (1.8-7.8); NEUTROPHILS % (AUTO) 61 % (42-75); PLATELET COUNT 140 10^3/uL (130-400); RED CELL DISTRIBUTION WIDTH 12.2 % (10.0-14.5)
[2019-04-17] MEDS: metroNIDAZOLE 500MG/100ML IVPB 100 ML IV SCH ×3 (05:10→21:05)
[2019-04-17 05:17] LABS: BUN/CREATININE RATIO 10; CALCIUM 7.7 MG/DL (8.5-10.1); CARBON DIOXIDE 22 MMOL/L (21-32); CHLORIDE 109 MMOL/L (98-107); CREATININE SERUM 0.63 MG/DL (0.60-1.30); GFR ESTIMATED > 60; GLUCOSE 79 MG/DL (70-105); MAGNESIUM 1.7 MG/DL (1.6-2.4); PHOSPHORUS 2.3 MG/DL (2.3-4.7); POTASSIUM 3.2 MMOL/L (3.6-5.0); SODIUM 141 MMOL/L (135-145)
[2019-04-17] MEDS: POTASSIUM CL 10MEQ/50ML IVPB 50 ML IV SCH (05:31)
[2019-04-17] MEDS: MAGNESIUM 1 GM/100 ML IVPB 100 ML IV SCH ×3 (05:31→07:33)
[2019-04-17] MEDS: KCL 20 MEQ TAB (K-DUR) PO SCH ×3 (05:31→07:33)
--- NOTE | 2019-04-17 05:51 | Diagnostic Imaging Report ---
EXAMINATION: Portable erect AP chest at 4:16 AM INDICATION: Left upper pneumonia The heart size is within normal limits and stable when compared 04/16/2019. The left-sided pacemaker seen previously is again evident and no different. The atelectasis/infiltrate involving the left lower lobe seen previously is also unchanged when compared to the prior exam. The central pulmonary vascularity is prominent and most likely there is also an element of pulmonary congestion present. This finding has developed since the prior exam. The mediastinum is not widened. The osseous structures are intact. The central venous catheter on the right is unchanged in position. IMPRESSION: The appearance of the chest has worsened since the prior study as mild pulmonary congestion has developed. There is persistent involvement of the left lung base by atelectasis/infiltrate as well. A follow-up study would be recommended for continued evaluation. Dictated by: Dictated on workstation # [id number]
[2019-04-17 08:00] VITALS: BP 179/79
[2019-04-17] MEDS: BETHANECHOL 25 MG (URECHOLINE) TAB PO SCH ×4 (08:14→20:55)
[2019-04-17] MEDS: CELECOXIB 100 MG (CeleBREX) CAP PO SCH (08:14)
[2019-04-17] MEDS: FUROSEMIDE 20 MG (LASIX) TAB PO SCH (08:14)
[2019-04-17] MEDS: SERTRALINE 50 MG (ZOLOFT) TABLET PO SCH (08:15)
[2019-04-17] MEDS: MEMANTINE 10 MG (NAMENDA) TABLET PO SCH ×2 (08:15→20:54)
[2019-04-17] MEDS: PANTOPRAZOLE 40 MG (PROTONIX) TAB PO SCH (08:15)
[2019-04-17] MEDS: DIVALPROX SPRINKLE 125 MG (DEPAKOTE) CAP PO SCH ×3 (08:15→20:55)
[2019-04-17] MEDS: SINEMET 25/100 (CARBIDOPA/LEVODOPA) TAB PO SCH ×3 (08:15→20:55)
--- NOTE | 2019-04-17 09:21 | Occupational Ther Daily Note ---
OT Current Status-Daily Note Subjective Pt laying in bed finishing breakfast at start of session. Pt did not report any pain during tx. Mental Status/Objective Attachments: IV ADL-Treatment Therapy Code Descriptions/Definitions Functional [place] Measure: 0=Not Assessed/NA 4=Minimal Assistance 1=Total Assistance 5=Supervision or Setup 2=Maximal Assistance 6=Modified [place] 3=Moderate Assistance 7=Complete IndependenceSCALE: Activities may be completed with or without assistive devices. 0-Xudwgbnazl-lzcrvrb completes the activity by him/herself with no assistance from a helper. 5-Set-up or Clean-up Assistance-helper sets up or cleans up; patient completes activity. [place] assists only prior to or following the activity. 4-Supervision or Touching Assistance-helper provides verbal cues and/or touching/steadying and/or contact guard assistance as patient completes activity. Assistance may be provided throughout the activity or intermittently. 3-Partial/Moderate Assistance-helper does LESS THAN HALF the effort. [place] lifts, holds or supports trunk or limbs, but provides less than half the effort. 2-Substantial/Maximal Assistance-helper does MORE THAN HALF the effort. [place] lifts or holds trunk or limbs and provides more than half the effort. 7-Umxcegpqz-dulmsd does ALL the effort. Patient does none of the effort to complete the activity. Or, the assistance of 2 or more helpers is required for the patient to complete the activity. If activity was not attempted, code reason: 7-Patient Refused. 9-Not Applicable-not attempted and the patient did not perform the activity before the current illness, exacerbation or injury. 10-Not Attempted due to Environmental Limitations-(lack of equipment, weather restraints, etc.). 88-Not Attempted due to Medical Conditions or Safety Concerns. Eating (QC): 5 (Pt reported not having difficulty with feeding. Based on OT tx, pt would require assistance opening containers before meal.) Upper Body Dressing (QC): 2 (Pt don/doff hospital gown during tx. Pt able to hold arms out in front of him in order for OT to doff sleeves, pt also able to hold arms out straight for OT to manju sleeves. Pt attempted to use right hand to push left sleeve up his arm but was unsuccessful with task, requiring OT assistance.) Other Treatment Pt laying in bed, stating he was finished with his breakfast. OT moved breakfast out of pts way and handed pt wet wipe to wash his hands. Pt attempted to wash hands but required assistance for thoroughness to get all of the food off of hands/forearms. Pt then handed a washcloth to clean his face, pt attempted to clean his face but required assistance secondary to food being stuck in his mustache/bateman. Pt then changed his hospital gown. Post OT session, pt laying in bed, call light and tray table in reach and all needs met. Education OT Patient Education: Correct positioning, Energy conservation, Modified ADL techniques, Progress toward Goal/Update tx plan, Purpose of tx/functional activities Teaching Recipient: Patient Teaching Methods: Demonstration, Discussion Response to Teaching: Verbalize Understanding OT Short Term Goals Short Term Goals Grooming(FIM): 6 Lower Body Dressing(FIM): 2 Additional Short Term Goals: 1-Demonstrate ADL Tasks, 2-Verbalize Understanding, 3-ImproveStrength/[place] 1=Demonstrate adherence to instructed precautions during ADL tasks. 2=Patient will verbalize/demonstrate understanding of assistive devices/modifications for ADL. 3=Patient will improve strength/tolerance for activity to enable patient to perform ADL's. OT Bilingual Spanish Inbound Sales Goals Long-Term Goals Eating (QC): 6 Oral Hygiene (QC): 3 Shower/Bathe Self (QC): 2 Upper Body Dressing (QC): 3 Lower Body Dressing (QC): 2 On/Off Footwear (QC): 2 Toileting Hygiene (QC): 2 Toilet/Commode Transfer (QC): 3 Additional Goals: 1-Demonstrate ADL Tasks, 2-Verbalize Understanding, 3- ImproveStrength/[place] 1=Demonstrate adherence to instructed precautions during ADL tasks. 2=Patient will verbalize/demonstrate understanding of assistive devices/modifications for ADL. 3=Patient will improve strength/tolerance for activity to enable patient to perform ADL's. OT Education/Plan Problem List/Assessment Assessment: Decreased Activ Tolerance, Decreased UE Strength, Impaired I ADL's, Impaired Self-Care Skills Discharge Recommendations Plan/Recommendations: Continue POC Treatment Plan/Plan of Care Treatment,Training & Education: Yes Patient would benefit from OT for education, treatment and training to promote independence in ADL's, mobility, safety and/or upper extremity function for ADL's. Plan of Care: ADL Retraining, Caregiver Training, Functional Mobility, UE Funct Exercise/Act Treatment Duration: Apr 22, 2019 Frequency: 5 times per week Estimated Hrs Per Day: .25 hour per day Agreement: Yes Rehab Potential: Fair Time/GCodes Start Time: 08:15 Stop Time: 08:30 Total Time Billed (hr/min): 15 Billed Treatment Time 1, ADL (15mins) SHERICE URENA OT Apr 17, 2019 09:21 POS
--- NOTE | 2019-04-17 10:32 | Pulmonary Progress Note ---
KASI RODNEY A MEDICAL STUDENT 04/17/19 1032: Subjective Date Seen by a Provider: Apr 17, 2019 Time Seen by a Provider: 10:30 Subjective/Events-last exam Pt states that he feels a little bit better since yesterday, and that he had a cough last night but has not had one this morning. Sepsis Event Evaluation Height, Weight, BMI Height: 6'0.00" Weight: 180lbs. 0.0oz. 81.466601ny; 22.00 BMI Method:Stated Focused Exam Time of Focused Exam: 20:50 Exam Exam Vital Signs Date Time Temp Pulse Resp B/P (MAP) Pulse Ox O2 Delivery O2 Flow Rate FiO2 04/17/19 09:00 92 Room Air 3.00 04/17/19 08:06 92 Room Air 04/17/19 08:00 36.8 57 18 179/79 (112) 96 Room Air 04/17/19 00:30 36.4 58 19 146/71 (96) 94 Room Air 04/16/19 21:00 Room Air 04/16/19 18:36 Room Air 04/16/19 16:18 36.6 76 16 138/56 (83) 97 Room Air 04/16/19 13:55 61 16 98 Nasal Cannula 04/16/19 13:50 60 16 98 Nasal Cannula 3 04/16/19 13:45 60 16 98 Nasal Cannula 3 04/16/19 13:40 59 16 100 Nasal Cannula 3 04/16/19 13:35 59 16 100 Nasal Cannula 3 04/16/19 13:30 60 16 100 Nasal Cannula 3 04/16/19 13:25 61 18 100 Nasal Cannula 3 04/16/19 13:20 63 18 100 Nasal Cannula 3 04/16/19 13:05 61 18 100 Nasal Cannula 3 I & O 04/17/19 07:00 Intake Total 640 ml Output Total 275 ml Balance 365 ml Height & Weight Height: 6'0.00" Weight: 180lbs. 0.0oz. 81.198783uj; 22.00 BMI Method:Stated General Appearance: No Apparent Distress, WD/WN, Chronically ill, Cachetic HEENT: PERRL/EOMI Neck: Full Range of Motion Respiratory: Crackles, Wheezing Cardiovascular: Regular Rate, Rhythm Capillary Refill: Greater Than 3 Seconds Gastrointestinal: normal bowel sounds Extremity: Normal Capillary Refill Neurologic/Psychiatric: Alert, Disoriented Skin: Normal Color, Warm/Dry Lymphatic: No Adenopathy Results Lab Laboratory Tests 04/16/19 05:35 04/17/19 04:45 Assessment/Plan Assessment/Plan MARIS[place] PNA - Resolved -Will need repeat CXR 6-8wks after discharge -Zosyn was changed to Augmentin yesterday -Continue Augmentin 1/2 blood cultures positive from strep - Possible contamination. Interstitial edema -CXR today shows worsening cxr compaired to yesterday with mild pulmonary congestion and LLL infiltrate vs atelectasis -continue Augmentin -increase dose of lasix -BNP and echo Intussusception -surgery following Diarrhea Cdiff neg SILVER WORRELL DO 04/17/19 1213: Exam Exam General Appearance: No Apparent Distress, WD/WN, Chronically ill, Cachetic HEENT: PERRL/EOMI Respiratory: Crackles, Wheezing Cardiovascular: Regular Rate, Rhythm Capillary Refill: Less Than 3 Seconds Gastrointestinal: normal bowel sounds Extremity: Normal Capillary Refill Neurologic/Psychiatric: Alert Skin: Normal Color, Warm/Dry Lymphatic: No Adenopathy Assessment/Plan Assessment/Plan [place] PNA - Resolved -Will need repeat CXR 6-8wks after discharge -Zosyn was changed to Augmentin yesterday -Continue Augmentin 1/2 blood cultures positive from strep - Possible contamination. Interstitial edema -CXR today shows worsening cxr compaired to yesterday with mild pulmonary congestion and LLL infiltrate vs atelectasis -Start IS -SVNs -continue Augmentin -lasix 60mg x 1. give Kcl 60meq IV x 1 -Repat CXR in AM -BNP Intussusception -surgery following Diarrhea Cdiff neg Supervisory-Addendum Brief Verification & Attestation Participated in pt care: history Personally performed: exam Care discussed with: Medical Student Procedures: n/a Verification and Attestation of Medical Student E/M Service A medical student performed and documented this service in my presence. I reviewed and verified all information documented by the medical student and made modifications to such information, when appropriate. I personally performed the physical exam and medical decision making. Silver Worrell, Apr 17, 2019,12:14 KASI RODNEY MEDICAL STUDENT Apr 17, 2019 10:32 SILVER NELSON DO Apr 17, 2019 12:13 POS
--- NOTE | 2019-04-17 10:49 | Physical Therapy Daily Note ---
PT Daily Note-Current Subjective pt in bed sleeping pre-tx. Pt agrees to PT this morning. pt reports no pain this morning. Appearance Pt in recliner post-tx with chair alarm set and feet elevated. with tray table, call light, room phone in reach with all needs met at this time. Mental Status Patient Orientation: Person, Confused Attachments: Central Line, IV pt is pleasant for therapy this date. Transfers SCALE: Activities may be completed with or without assistive devices. 1-Ipwwnqatlb-rdgfzvh completes the activity by him/herself with no assistance from a helper. 5-Set-up or Clean-up Assistance-helper sets up or cleans up; patient completes activity. [place] assists only prior to or following the activity. 4-Supervision or Touching Assistance-helper provides verbal cues and/or touching/steadying and/or contact guard assistance as patient completes activity. Assistance may be provided throughout the activity or intermittently. 3-Partial/Moderate Assistance-helper does LESS THAN HALF the effort. [place] lifts, holds or supports trunk or limbs, but provides less than half the effort. 2-Substantial/Maximal Assistance-helper does MORE THAN HALF the effort. [place] lifts or holds trunk or limbs and provides more than half the effort. 8-Wrjyakjao-gyqraz does ALL the effort. Patient does none of the effort to complete the activity. Or, the assistance of 2 or more helpers is required for the patient to complete the activity. If activity was not attempted, code reason: 7-Patient Refused. 9-Not Applicable-not attempted and the patient did not perform the activity before the current illness, exacerbation or injury. 10-Not Attempted due to Environmental Limitations-(lack of equipment, weather restraints, etc.). 88-Not Attempted due to Medical Conditions or Safety Concerns. Sit to Stand (QC): 3 (modA) pt sets to EOB from supine with CGA Weight Bearing Right Lower Extremity: Right Full Weight Bearing Left Lower Extremity: Left Full Weight Bearing Gait Training Distance: 6' Gait Persons Needed: 1 Gait Assistive Device: Walker Platform pt able to stand and take steps 6' over to recliner. Pt has slight ataxic gait and maintains feet in a plantarflexed position. Exercises Seated Therapy Exercises: Ankle pumps, Long arc quads, Hip flexion Seated Reps: 20 (2sets 10 reps) Treatments pt performed bed mobility, transfer training, skilled ambulation training, functional LE strengthening, and education this date. Assessment Current Status: Poor Progress Pt is found sitting in a wet depends that is soaked through the depends through the pad and has soaked into the bed, pt is reports he knows he has urinated in the depends. Pt is able to take more steps today to get to the chair. Pt continues to be unsafe secondary to mental state, posterior lean causing imbalance, and impaired posture. New brief put on patient. Patient has significant redness on bottom, nurse notified, doctor also saw it. PT Extrusion Press Adjuster Goals [facility] Goals PT Extrusion Press Adjuster Goals Time Frame: Apr 22, 2019 Sit to Lying (QC): 3 ([place]) Lying-Sitting on Side/Bed(QC): 3 ([place]) Sit to Stand (QC): 3 (modA) Chair/Bix-tc-Qexgv Xfer(QC): 3 (modA) Distance: 50' Walk 10 feet (QC): 3 ([place]) Walk 50ft with 2 Turns (QC): 3 ([place]) Gait Assistive Device: FWW PT Plan Problem List Problem List: Activity Tolerance, Functional Strength, Safety, Balance, Gait, Transfer, Bed Mobility, ROM Treatment/Plan Treatment Plan: Continue Plan of Care Treatment Plan: Bed Mobility, Concurrent Therapy, Education, Functional Activity [place], Functional Strength, Gait, Safety, Therapeutic Exercise, Transfers Frequency: 6 times per week Estimated Hrs Per Day: .25 hour per day Patient and/or Family Agrees t: Yes Safety Risks/Education Patient Education: Gait Training, Transfer Techniques, Correct Positioning, Safety Issues Teaching Recipient: Patient Teaching Methods: Demonstration, Discussion Response to Teaching: Reinforcement Needed Time/GCodes Time In: 1020 Time Out: 1034 Total Billed Treatment Time: 14 Total Billed Treatment 1 visit FA 14' YUE HASSAN PT Apr 17, 2019 10:49 POS
--- NOTE | 2019-04-17 11:12 | Progress Note - Hospitalist ---
Subjective HPI/CC On Admission Date Seen by Provider: Apr 17, 2019 Time Seen by Provider: 09:45 Chief complaint: Altered mental status History of present illness: This is an 83-year-old white male who resides at home with his family who has a past medical history of dementia who presented with pneumonia and severe sepsis with elevated lactic acid of 16. At this current time patient is feeling much better. Poor historian noted. spray worker will be consulted for senior care placement. He remains a DO NOT RESUSCITATE. He was found to have fecal matter all over his body. Patient denies any significant pain. Patient appears to be very frail. Subjective/Events-last exam Pt doing pretty well Working with PT Incontinencecontinues Colon biopsypending but may appear to be inflammatory bowel disease Pt appears to be more alert and talking well Has a platform already with his walker SB to [facility]? Review of Systems General: Fatigue Gastrointestinal: Diarrhea Focused Exam Time of Focused Exam: 20:50 Objective Exam Vital Signs Vital Signs Date Time Temp Pulse Resp B/P (MAP) Pulse Ox O2 Delivery O2 Flow Rate FiO2 04/18/19 00:00 36.4 64 18 128/60 (82) 93 Room Air 04/17/19 09:00 3.00 04/12/19 10:52 28 Capillary Refill : Less Than 3 SecondsGreater Than 3 Seconds General Appearance: No Apparent Distress, Chronically ill, Cachetic Respiratory: Lungs Clear Cardiovascular: Regular Rate, Rhythm Neurologic/Psychiatric: Alert, No Motor/Sensory Deficits, Normal Mood/Affect, Disoriented Results/Procedures Lab Laboratory Tests 04/18/19 05:10 Patient resulted labs reviewed. Assessment/Plan Assessment and Plan Assess & Plan/Chief Complaint Assessment: Sepsis Intussusception but CT scan repeat r/o that but dilated bowel noted and c-scope suspicious for IBD Presumed pneumonia CT scan rules out Elevated lactic acid Severe dementia Dysphagia Severe debility Plan: Dr Shoemaker to peformed C scope and awaiting biopsies PT/OT Antibiotic coverage to be maintained Monitor closely Diagnosis/Problems Diagnosis/Problems (1) Severe sepsis (2) Dementia (3) Lactic acidosis (4) Poor prognosis (5) Do not resuscitate (6) Left upper lobe pneumonia Status: Acute Qualifiers: Pneumonia type: due to unspecified organism Qualified Codes: J18.1 - Lobar pneumonia, unspecified organism (7) Intussusception Status: Acute Clinical Quality Measures DVT/VTE Risk/Contraindication: Risk Factor Score Per Nursin RFS Level Per Nursing on Admit: 4+=Very High MILAGRO ROSENBAUM DO Apr 17, 2019 11:12 POS
--- NOTE | 2019-04-17 11:12 | NUR ---
CM/SS Dr wanted to check into [facility] the [facility], referral sent to [facility] ([phone]).
[2019-04-17] MEDS ORDERED: KCL 20 MEQ TAB (K-DUR) PO NR (12:15)
[2019-04-17] MEDS ORDERED: FUROSEMIDE 40 MG/4 ML INJ (LASIX) IVP NR (12:15)
[2019-04-17] MEDS ORDERED: FLU QUADRIvalent (5+ YOA) 2019-2020 (AFLURIA) 0.5 ML IM ONE (14:30)
--- NOTE | 2019-04-17 15:01 | Progress Note ---
Subjective Date Seen by a Provider: Apr 17, 2019 Time Seen by a Provider: 14:00 Subjective/Events-last exam doing well. tolerating diet. having loose stools. Focused Exam Time of Focused Exam: 20:50 Objective Exam Vital Signs Date Time Temp Pulse Resp B/P (MAP) Pulse Ox O2 Delivery O2 Flow Rate FiO2 04/17/19 09:00 92 Room Air 3.00 04/17/19 08:06 92 Room Air 04/17/19 08:00 36.8 57 18 179/79 (112) 96 Room Air 04/17/19 00:30 36.4 58 19 146/71 (96) 94 Room Air 04/16/19 21:00 Room Air 04/16/19 18:36 Room Air 04/16/19 16:18 36.6 76 16 138/56 (83) 97 Room Air I & O 04/17/19 07:00 Intake Total 640 ml Output Total 275 ml Balance 365 ml Capillary Refill : Less Than 3 SecondsLess Than 3 Seconds General Appearance: No Apparent Distress HEENT: PERRL/EOMI Neck: Full Range of Motion Respiratory: Chest Non Tender, Normal Breath Sounds Cardiovascular: Regular Rate, Rhythm Gastrointestinal: normal bowel sounds, non tender, soft Extremity: Normal Capillary Refill Neurologic/Psychiatric: Alert, Oriented x3 Skin: Normal Color Lymphatic: No Adenopathy Results Lab Laboratory Tests 04/17/19 04:45: White Blood Count 4.0L, Red Blood Count 3.36L, Hemoglobin 10.6L, Hematocrit 31L, Mean Corpuscular Volume 91, Mean Corpuscular Hemoglobin 32, Mean Corpuscular Hemoglobin Concent 35, Red Cell Distribution Width 12.2, Platelet Count 140, Mean Platelet Volume 9.4, Neutrophils (%) (Auto) 61, Lymphocytes (%) (Auto) 20, Monocytes (%) (Auto) 8, Eosinophils (%) (Auto) 10, Basophils (%) (Auto) 1, Neutrophils # (Auto) 2.5, Lymphocytes # (Auto) 0.8L, Monocytes # (Auto) 0.3, Eosinophils # (Auto) 0.4H, Basophils # (Auto) 0.0, Sodium Level 141, Potassium Level 3.2L, Chloride Level 109H, Carbon Dioxide Level 22, Anion Gap 10, Blood Urea Nitrogen 6L, Creatinine 0.63, Estimat Glomerular Filtration Rate > 60, BUN/Creatinine Ratio 10, Glucose Level 79, Calcium Level 7.7L, Phosphorus Level 2.3, Magnesium Level 1.7 04/17/19 12:47: B-Type Natriuretic Peptide 382.7H Microbiology 04/11/19 Blood Culture - Preliminary, Resulted No growth 04/11/19 C. difficile GDH Antigen & Toxins - Final, Complete 04/11/19 MRSA Screen - Final, Complete MRSA not isolated 04/11/19 Urine Culture - Final, Complete NO GROWTH Assessment/Plan Assessment/Plan Assess & Plan/Chief Complaint rectal-sigmoid ischemic colitis tolerating diet. ok for transfer to [facility] Clinical Quality Measures DVT/VTE Risk/Contraindication: Risk Factor Score Per Nursin RFS Level Per Nursing on Admit: 4+=Very High SABI KATZ MD Apr 17, 2019 15:01 POS
[2019-04-17] MEDS: RT-ALBUTEROL/IPRATROPIUM 3 ML (DUONEB) VIAL INH SCH ×2 (15:31→19:54)
[2019-04-17 15:56] VITALS: BP 135/59
[2019-04-17] MEDS: RIVAROXABAN 20 MG TABLET (XARELTO) PO SCH (16:33)
[2019-04-17] MEDS: RIVASTIGMINE 1.5 MG (EXELON) CAP PO SCH (20:55)
[2019-04-17] MEDS: TAMSULOSIN 0.4 MG (FLOMAX) CAP PO SCH (20:55)
[2019-04-18] VITALS: BP 128/60
[2019-04-18 05:18] LABS: BASOPHILS % (AUTO) 1 % (0-10); EOSINOPHILS # (AUTO) 0.4 10^3/uL (0.0-0.3); EOSINOPHILS % (AUTO) 9 % (0-10); HEMATOCRIT 33 % (40-54); HEMOGLOBIN 11.1 G/DL (13.3-17.7); LYMPHOCYTES # (AUTO) 0.9 X 10^3 (1.0-4.0); LYMPHOCYTES % (AUTO) 22 % (12-44); MEAN CORPUSCULAR HEMOGLOBIN 31 PG (25-34); MEAN CORPUSCULAR HGB CONC 34 G/DL (32-36); MEAN CORPUSCULAR VOLUME 92 FL (80-99); MEAN PLATELET VOLUME 9.8 FL (7.4-10.4); MONOCYTES # (AUTO) 0.4 X 10^3 (0.0-1.0); MONOCYTES % (AUTO) 11 % (0-12); NEUTROPHILS # (AUTO) 2.3 X 10^3 (1.8-7.8); NEUTROPHILS % (AUTO) 58 % (42-75); PLATELET COUNT 156 10^3/uL (130-400); RED CELL DISTRIBUTION WIDTH 12.8 % (10.0-14.5); WHITE BLOOD COUNT 3.9 10^3/uL (4.3-11.0)
[2019-04-18] MEDS: metroNIDAZOLE 500MG/100ML IVPB 100 ML IV SCH ×2 (05:25→13:15)
[2019-04-18 05:38] LABS: BUN/CREATININE RATIO 12; CALCIUM 7.8 MG/DL (8.5-10.1); CARBON DIOXIDE 25 MMOL/L (21-32); CHLORIDE 110 MMOL/L (98-107); CREATININE SERUM 0.69 MG/DL (0.60-1.30); GFR ESTIMATED > 60; GLUCOSE 93 MG/DL (70-105); MAGNESIUM 2.1 MG/DL (1.6-2.4); PHOSPHORUS 2.6 MG/DL (2.3-4.7); POTASSIUM 4.1 MMOL/L (3.6-5.0); SODIUM 142 MMOL/L (135-145)
[2019-04-18] MEDS: POTASSIUM CL 10MEQ/50ML IVPB 50 ML IV SCH (06:11)
[2019-04-18] MEDS: MAGNESIUM 1 GM/100 ML IVPB 100 ML IV SCH (06:11)
[2019-04-18] MEDS: KCL 20 MEQ TAB (K-DUR) PO SCH (06:12)
--- NOTE | 2019-04-18 07:12 | Pulmonary Progress Note ---
KASI RODNEY A MEDICAL STUDENT 04/18/19 0712: Subjective Date Seen by a Provider: Apr 18, 2019 Time Seen by a Provider: 07:08 Subjective/Events-last exam Pt states he has not had any problems breathing since yesterday, denies any productive cough. Pt states he feels overall improving. Sepsis Event Evaluation Height, Weight, BMI Height: 6'0.00" Weight: 180lbs. 0.0oz. 81.554681cz; 22.00 BMI Method:Stated Focused Exam Time of Focused Exam: 20:50 Exam Exam Vital Signs Date Time Temp Pulse Resp B/P (MAP) Pulse Ox O2 Delivery O2 Flow Rate FiO2 04/18/19 00:00 36.4 64 18 128/60 (82) 93 Room Air 04/17/19 19:54 94 Room Air 04/17/19 19:50 Room Air 04/17/19 15:56 36.4 62 18 135/59 (84) 96 Room Air 04/17/19 15:31 93 Room Air 04/17/19 09:00 92 Room Air 3.00 04/17/19 08:06 92 Room Air 04/17/19 08:00 36.8 57 18 179/79 (112) 96 Room Air I & O 04/18/19 07:00 Intake Total 1550 ml Balance 1550 ml Height & Weight Height: 6'0.00" Weight: 180lbs. 0.0oz. 81.230573ty; 22.00 BMI Method:Stated General Appearance: No Apparent Distress, Chronically ill, Cachetic HEENT: PERRL/EOMI Neck: Full Range of Motion; No JVD Respiratory: Lungs Clear, Normal Breath Sounds, No Accessory Muscle Use, No Respiratory Distress Cardiovascular: Regular Rate, Rhythm Capillary Refill: Less Than 3 Seconds Gastrointestinal: normal bowel sounds, non tender, soft Extremity: Normal Capillary Refill Neurologic/Psychiatric: Alert, No Motor/Sensory Deficits, Normal Mood/Affect Skin: Normal Color Lymphatic: No Adenopathy Results Lab Laboratory Tests 04/17/19 04:45 04/18/19 05:10 Assessment/Plan Assessment/Plan [place] PNA - Resolved -Will need repeat CXR 6-8wks after discharge -Abx course complete -pt feels much improved with his breathing 1/2 blood cultures positive from strep - Possible contamination. Interstitial edema -04/18- CXR showed improving pulmonary congestion after starting lasix 60mg yesterday -BNP 382.7(04/17) today 243.1(04/18) -will order echo -Lasix 40mg QD with KCl 40meq IV possible Intussusception -surgery following Diarrhea KENDRA Proctor DO 04/18/19 0939: Subjective Subjective/Events-last exam Pt appears to be doing better. CXR is improved. Exam Exam General Appearance: No Apparent Distress, Chronically ill, [place] Neck: Full Range of Motion; No JVD Respiratory: Lungs Clear, Normal Breath Sounds, No Accessory Muscle Use, No Respiratory Distress Cardiovascular: Regular Rate, Rhythm Capillary Refill: Less Than 3 Seconds Gastrointestinal: normal bowel sounds, non tender, soft Extremity: Normal Capillary Refill Neurologic/Psychiatric: Alert, No Motor/Sensory Deficits, Normal Mood/Affect Skin: Normal Color Lymphatic: No Adenopathy Assessment/Plan Assessment/Plan [place] PNA - Resolved -Will need repeat CXR 6-8wks after discharge -Abx course complete -pt feels much improved with his breathing 1/2 blood cultures positive from strep - Possible contamination. Interstitial edema -04/18- CXR showed improving pulmonary congestion after lasix 60mg yesterday -BNP 382.7(04/17) today 243.1(04/18) -will order echo - Continue Lasix -IVF are SL possible Intussusception -surgery following Diarrhea CdiKASI Webber MEDICAL STUDENT Apr 18, 2019 07:12 KENDRA NELSON DO Apr 18, 2019 09:39 POS
--- NOTE | 2019-04-18 07:21 | Diagnostic Imaging Report ---
INDICATION: Pneumonia. COMPARISON: Comparison made to prior examination from 04/17/2019. FINDINGS: There is cardiomegaly. There is some venous congestion which appears improved. There has also been improvement in the bibasilar infiltrates. There is no pleural effusion or pneumothorax. Mediastinum is unremarkable. Pacemaker overlies the left hemithorax. The right internal jugular central venous catheter is in satisfactory position. IMPRESSION: 1. Interval improvement in the bibasilar infiltrates and venous congestion. 2. Cardiomegaly. Dictated by: Dictated on workstation # [id number]
[2019-04-18] MEDS: RT-ALBUTEROL/IPRATROPIUM 3 ML (DUONEB) VIAL INH SCH ×2 (07:24→10:55)
[2019-04-18 08:00] VITALS: BP 155/77
[2019-04-18] MEDS: FUROSEMIDE 20 MG (LASIX) TAB PO SCH (08:00)
[2019-04-18] MEDS: CELECOXIB 100 MG (CeleBREX) CAP PO SCH (08:00)
[2019-04-18] MEDS: MEMANTINE 10 MG (NAMENDA) TABLET PO SCH (08:00)
[2019-04-18] MEDS: SERTRALINE 50 MG (ZOLOFT) TABLET PO SCH (08:00)
[2019-04-18] MEDS: SINEMET 25/100 (CARBIDOPA/LEVODOPA) TAB PO SCH ×2 (08:00→13:14)
[2019-04-18] MEDS: PANTOPRAZOLE 40 MG (PROTONIX) TAB PO SCH (08:00)
[2019-04-18] MEDS: DIVALPROX SPRINKLE 125 MG (DEPAKOTE) CAP PO SCH ×2 (08:00→13:14)
[2019-04-18] MEDS: BETHANECHOL 25 MG (URECHOLINE) TAB PO SCH ×2 (08:01→13:14)
--- NOTE | 2019-04-18 09:12 | Occupational Ther Daily Note ---
OT Current Status-Daily Note Subjective Pt upright in bed eating breakfast at start of session, agreeable to OT tx this AM. Pt did not report any pain. Mental Status/Objective Patient Orientation: Confused Attachments: IV ADL-Treatment Therapy Code Descriptions/Definitions Functional [place] Measure: 0=Not Assessed/NA 4=Minimal Assistance 1=Total Assistance 5=Supervision or Setup 2=Maximal Assistance 6=Modified [place] 3=Moderate Assistance 7=Complete IndependenceSCALE: Activities may be completed with or without assistive devices. 8-Xhzbuuvuew-luvjrmk completes the activity by him/herself with no assistance from a helper. 5-Set-up or Clean-up Assistance-helper sets up or cleans up; patient completes activity. Blanco assists only prior to or following the activity. 4-Supervision or Touching Assistance-helper provides verbal cues and/or touching/steadying and/or contact guard assistance as patient completes activity. Assistance may be provided throughout the activity or intermittently. 3-Partial/Moderate Assistance-helper does LESS THAN HALF the effort. Blanco lifts, holds or supports trunk or limbs, but provides less than half the effort. 2-Substantial/Maximal Assistance-helper does MORE THAN HALF the effort. Blanco lifts or holds trunk or limbs and provides more than half the effort. 4-Ebydjluly-wcvbrw does ALL the effort. Patient does none of the effort to complete the activity. Or, the assistance of 2 or more helpers is required for the patient to complete the activity. If activity was not attempted, code reason: 7-Patient Refused. 9-Not Applicable-not attempted and the patient did not perform the activity before the current illness, exacerbation or injury. 10-Not Attempted due to Environmental Limitations-(lack of equipment, weather restraints, etc.). 88-Not Attempted due to Medical Conditions or Safety Concerns. Eating (QC): 3 (Pt able to use spoon with right hand to scoop up eggs/sausage using his left hand to assist with pushing food onto spoon. Noted slight tremors as he brought spoon to mouth, but he was successful in feeding. Pt asked for assistance with drinking juice secondary to tremors. OT assisted pt with bringing cup to his mouth and he was able to take a drink of juice.) Upper Body Dressing (QC): 2 (Pt able to doff hospital gown off of left arm, requiring assistance with right arm. To don gown, OT held gown open for pt and pt was able to thread arms into sleeves.) Other Treatment Pt laying in bed finishing breakfast. After breakfast, pt was able to wash face and hands using wet wipe, requiring assistance with getting food out of mustache/bateman, and assist with hands for thoroughness. Pt then changed hospital gown (see UB dressing QC above). Post OT session, pt laying in bed, call light in reach and all needs met. Education OT Patient Education: Correct positioning, Energy conservation, Modified ADL techniques, Progress toward Goal/Update tx plan, Purpose of tx/functional activities Teaching Recipient: Patient Teaching Methods: Demonstration Response to Teaching: Reinforcement Needed OT Short Term Goals Short Term Goals Grooming(FIM): 6 Lower Body Dressing(FIM): 2 Additional Short Term Goals: 1-Demonstrate ADL Tasks, 2-Verbalize Understanding, 3-ImproveStrength/Huey 1=Demonstrate adherence to instructed precautions during ADL tasks. 2=Patient will verbalize/demonstrate understanding of assistive devices/modifications for ADL. 3=Patient will improve strength/tolerance for activity to enable patient to p erform ADL's. OT Longterm Goals [employer] Goals Eating (QC): 6 Oral Hygiene (QC): 3 Shower/Bathe Self (QC): 2 Upper Body Dressing (QC): 3 Lower Body Dressing (QC): 2 On/Off Footwear (QC): 2 Toileting Hygiene (QC): 2 Toilet/Commode Transfer (QC): 3 Additional Goals: 1-Demonstrate ADL Tasks, 2-Verbalize Understanding, 3- ImproveStrength/Huey 1=Demonstrate adherence to instructed precautions during ADL tasks. 2=Patient will verbalize/demonstrate understanding of assistive devices/modifications for ADL. 3=Patient will improve strength/tolerance for activity to enable patient to perform ADL's. OT Education/Plan Problem List/Assessment Assessment: Decreased Activ Tolerance, Decreased UE Strength, Impaired I ADL's, Impaired Self-Care Skills Discharge Recommendations Plan/Recommendations: Continue POC Treatment Plan/Plan of Care Treatment,Training & Education: Yes Patient would benefit from OT for education, treatment and training to promote independence in ADL's, mobility, safety and/or upper extremity function for ADL's. Plan of Care: ADL Retraining, Caregiver Training, Functional Mobility, UE Funct Exercise/Act Treatment Duration: Apr 22, 2019 Frequency: 5 times per week Estimated Hrs Per Day: .25 hour per day Agreement: Yes Rehab Potential: Fair Time/GCodes Start Time: 08:12 Stop Time: 08:25 Total Time Billed (hr/min): 13 Billed Treatment Time 1, ADL SHERICE URENA OT Apr 18, 2019 09:12 POS
--- NOTE | 2019-04-18 09:22 | Physical Therapy Daily Note ---
PT Daily Note-Current Subjective Pt agreeable to PT. Mental Status Patient Orientation: Person Transfers SCALE: Activities may be completed with or without assistive devices. 1-Xstcnjmhki-chvgqde completes the activity by him/herself with no assistance from a helper. 5-Set-up or Clean-up Assistance-helper sets up or cleans up; patient completes activity. Silver assists only prior to or following the activity. 4-Supervision or Touching Assistance-helper provides verbal cues and/or touching/steadying and/or contact guard assistance as patient completes activity. Assistance may be provided throughout the activity or intermittently. 3-Partial/Moderate Assistance-helper does LESS THAN HALF the effort. Silver lifts, holds or supports trunk or limbs, but provides less than half the effort. 2-Substantial/Maximal Assistance-helper does MORE THAN HALF the effort. Silver lifts or holds trunk or limbs and provides more than half the effort. 8-Cldrdbazf-tolpsi does ALL the effort. Patient does none of the effort to complete the activity. Or, the assistance of 2 or more helpers is required for the patient to complete the activity. If activity was not attempted, code reason: 7-Patient Refused. 9-Not Applicable-not attempted and the patient did not perform the activity before the current illness, exacerbation or injury. 10-Not Attempted due to Environmental Limitations-(lack of equipment, weather restraints, etc.). 88-Not Attempted due to Medical Conditions or Safety Concerns. Transfers (B, C, W/C): 2 (mod assist with sup to sit EOB and min asssit for seated EOB balance.) Chair/Esu-wq-Rlipo Xfer(QC): 2 (mod assist for balance; pt retropulsive; requires heavy cues to sequence) Pt took 4-5 steps forward and back to transfer to the chair. Pt up in chair with chair alarm activated and needs met. Friend present at this time to visit with patient. Nurse tech notified that patient was up in chair. Weight Bearing Right Lower Extremity: Right Full Weight Bearing Left Lower Extremity: Left Full Weight Bearing Assessment Current Status: Fair Progress Pt slow with task completion and requires skilled cues for sequencing and safety. Requires assist with all bed mobiltiy and transfer; unsteady in standing. Pt uses a FWW with platform left; unable to safely ambulate this date; uncoordinated placement of LE with gait and slightly retropulsive. PT Senior Care Goals Jewelry Sorter Goals PT Senior Care Goals Time Frame: Apr 22, 2019 Sit to Lying (QC): 3 ([place]) Lying-Sitting on Side/Bed(QC): 3 (Olesya) Sit to Stand (QC): 3 (modA) Chair/Vwc-yn-Laaih Xfer(QC): 3 (modA) Distance: 50' Walk 10 feet (QC): 3 (Olesya) Walk 50ft with 2 Turns (QC): 3 (Olesya) Gait Assistive Device: FWW PT Plan Problem List Problem List: Activity Tolerance, Functional Strength, Safety, Balance, Gait, Transfer, Bed Mobility Treatment/Plan Treatment Plan: Continue Plan of Care Treatment Plan: Bed Mobility, Concurrent Therapy, Education, Functional Activity Huey, Functional Strength, Gait, Safety, Therapeutic Exercise, Transfe rs Frequency: 6 times per week Estimated Hrs Per Day: .25 hour per day Patient and/or Family Agrees t: Yes Safety Risks/Education Patient Education: Transfer Techniques, Safety Issues Teaching Recipient: Patient Teaching Methods: Demonstration, Discussion Response to Teaching: Reinforcement Needed Time/GCodes Time In: 828 Time Out: 851 Total Billed Treatment Time: 23 Total Billed Treatment visit FA 23 NANCY TORRES PT Apr 18, 2019 09:22 POS
--- NOTE | 2019-04-18 10:51 | NUR ---
DISCHARGE PLANNING: This RN spoke with daughter/Hcely regarding their plan for discharge. THey do not want him to go to [facility] at [place], rather they prefer him to come home so that his and he are together. This causes less anxiety for the both of them. They already have [facility] for patient's and they would like to utilize them for this patient. Nursing and Physical Therapy have been requested. They have no other needs and will transport the patient.
--- NOTE | 2019-04-18 11:03 | D/C HH Face to Face Order ---
D/C Face to Face Orders Reconcile Patient Problems Problems Reviewed?: Yes Instructions for Patient Marisabel Patient Instructions/FollowUp: [facility] 1 week Physician to follow Patient: [facility] Discharge Diet for Home: Soft Diet Patient Problems: Colitis Goals for Patient: return to independent ADLs Patient Data-Allergies,Ht & Wt Patient Allergies: Coded Allergies: No Known Drug Allergies (Unverified , 06/20/13) Height (Feet): 6 Height (Inches): 0.00 Weight (Pounds): 180 Weight (Ounces): 0.0 Home Health Need/Face to Face Date of Face to Face: Apr 18, 2019 Clinical Findings: Generalized weakness and fatigue, Instability, Muscle weakness, Unsteady gait I have seen Pt tkik-nj-sfva: Yes Discharged To: Home Diagnosis/Conditions: Colitis Patient is Homebound due to: CognItive deficits, Nic fall risk due to instabi lty, Muscle weakness Homebound Status Due to the above stated illness, injury or surgical procedure (medical condition or diagnosis) and associated clinical findings, the patient is homebound because of his/her inability to leave home except with aid of a supportive device and/or person AND leaving the home requires a considerable and taxing effort or is medically contraindicated. Pt req the following assistanc: Aid of another person, Walker Home Health Nursing Orders Home Health Services Order: Nursing Services, Physical Therapy-Evaluate & Treat Home Health Infusion Therapy Line Start Date: Apr 11, 2019 Certify Stmt I certify that this patient is under my care and that I, a nurse practitioner or a physician; a human resources executive assistant working with me, had a face to face encounter that - meets the physician face to face encounter requirements with this patient as dated. MILAGRO ROSENBAUM DO Apr 18, 2019 11:03 POS
--- NOTE | 2019-04-18 14:12 | NUR ---
RD ASSESSMENT PMHx: dementia; afib; CAD; GERD PT INTERACTION: Pt was awake and pleasant during nutrition assessment for length of stay. Note pt has AMS and dementia, per chart review. Pt states current appetite is pretty good and has been for some time. Note pt avg PO intake is >75% x3d, per chart review. Pt states following a regular diet at home, and currently has no issue chewing/swallowing food. Note pt currently on DYS3 Advanced/Ground Meat diet, per chart review. Pt states no recent issues with n/v/c/d at this time. Note last BM was 04/16 and pt not currently on bowel regimen, per chart review. Pt states no recent wt changes. Note 3# wt gain x1w, per chart review. ABNORMAL NUTRITION-RELATED LAB VALUES: Cl 110 (H); Ca 7.8 (L) Est. kcal needs: 0255-3907 kcal (20-25 kcal/kg) Est. Pro needs: 83-100 g Pro (1.0-1.2 g Pro/kg) PES STATEMENT: Given pt's PO intake and wt hx, no nutrition diagnosis at this time (NO-1.1) INTERVENTION: Continue with current diet order of DYS3 Advanced/Ground Meat diet. MONITOR/EVALUATE: PO Intake; Plan of Care; Hydration Status; Weight Status; Lab Values Ryan Villafuerte, MS, RD, LD Ext. [phone]
--- NOTE | 2019-04-18 17:37 | Discharge Summary ---
Discharge Summary Hospital Course Was the Problem List Reviewed?: Yes Problems/Dx: (1) Severe sepsis (2) Dementia (3) Lactic acidosis (4) Poor prognosis (5) Do not resuscitate (6) Left upper lobe pneumonia Status: Acute Qualifiers: Qualified Codes: J18.1 - Lobar pneumonia, unspecified organism (7) Intussusception Status: Acute Hospital Course Date of Admission: Apr 11, 2019 at 20:24 Admission Diagnosis : Family Physician/Provider: Shamar Stone MD Date of Discharge: 04/18/19 Discharge Diagnosis: Colitis, severe sepsis, uti Hospital Course: Hospital course: Pt had an uneventful hospital course although it was long, he was admitted for severe sepsis with lactic acidosis of 16, Pt was assumed to have pneumonia and intussusception of the intestine but pneumonia was ruled out, repeat CT scan did ot show any urgent need for surgery, he did undergo a colonoscopy that revealed widespread colitis so he was maintained on appropriate treatment for colitis and initiated PT and OT in which he had his home walker with platform brought in and he was using that along with PT and actually returned back to baseline, confusion resolved, Pt was lucid and they had caregi vers all arranged and he was ready for discharge. Pt had much improved status. Labs and Pending Lab Test: Laboratory Tests 04/18/19 05:10: White Blood Count 3.9L, Red Blood Count 3.58L, Hemoglobin 11.1L, Hematocrit 33L, Mean Corpuscular Volume 92, Mean Corpuscular Hemoglobin 31, Mean Corpuscular Hemoglobin Concent 34, Red Cell Distribution Width 12.8, Platelet Count 156, Mean Platelet Volume 9.8, Neutrophils (%) (Auto) 58, Lymphocytes (%) (Auto) 22, Monocytes (%) (Auto) 11, Eosinophils (%) (Auto) 9, Basophils (%) (Auto) 1, Neutrophils # (Auto) 2.3, Lymphocytes # (Auto) 0.9L, Monocytes # (Auto) 0.4, Eosinophils # (Auto) 0.4H, Basophils # (Auto) 0.0, Sodium Level 142, Potassium Level 4.1, Chloride Level 110H, Carbon Dioxide Level 25, Anion Gap 7, Blood Urea Nitrogen 8, Creatinine 0.69, Estimat Glomerular Filtration Rate > 60, BUN/Creatinine Ratio 12, Glucose Level 93, Calcium Level 7.8L, Phosphorus Level 2.6, Magnesium Level 2.1, B-Type Natriuretic Peptide 243.1H Microbiology 04/11/19 Blood Culture - Final, Complete No growth 04/11/19 C. difficile GDH Antigen & Toxins - Final, Complete 04/11/19 MRSA Screen - Final, Complete MRSA not isolated 04/11/19 Urine Culture - Final, Complete NO GROWTH Home Meds Active Reported Rivastigmine (Rivastigmine Tartrate) 4.5 Mg Capsule 4.5 Mg PO HS Memantine HCl 10 Mg Tablet 10 Mg PO BID Urecholine (Bethanechol Chloride) 25 Mg Tablet 25 Mg PO QID Furosemide 20 Mg Tablet 20 Mg PO DAILY Xarelto (Rivaroxaban) 20 Mg Tablet 20 Mg PO 1700 Pantoprazole Sodium 40 Mg Tablet.dr 40 Mg PO DAILY Celecoxib 100 Mg Capsule 100 Mg PO DAILY Flomax (Tamsulosin HCl) 0.4 Mg Cap 0.4 Mg PO HS Sertraline HCl 50 Mg Tablet 50 Mg PO DAILY Carbidopa-Levodopa 25-100 Tab (Carbidopa/Levodopa) 1 Each Tablet 1 Tab PO TID Divalproex Sodium 125 Mg Cap.sprink 125 Mg PO TID Assessment/Pt Instructions [facility] 1 week Discharge Planning: <30 minutes discharge planning Discharge Instructions Discharge Diet: Soft Diet Activity as Tolerated: Yes Pneumonia Vaccine Order Indica: Yes Discharge Physical Examination Vital Signs Vital Signs Date Time Temp Pulse Resp B/P (MAP) Pulse Ox O2 Delivery O2 Flow Rate FiO2 04/18/19 15:10 04/18/19 10:54 100 Room Air 04/18/19 09:00 3.00 04/18/19 08:00 37.0 62 20 04/12/19 10:52 28 General Appearance: No Apparent Distress Respiratory: Lungs Clear Cardiovascular: Regular Rate, Rhythm Neurologic/Psychiatric: Alert, Oriented x3, Disoriented Allergies: Coded Allergies: No Known Drug Allergies (Unverified , 06/20/13) Discharge Summary Date of Admission Apr 11, 2019 at 20:24 Date of Discharge Apr 18, 2019 at 15:12 Discharge Date: Apr 18, 2019 Admission Diagnosis Assessment: Severe sepsis Pneumonia Dementia Lactic acidosis Poor prognosis Intussusception? DO NOT RESUSCITATE Plan: Transfer to fourth floor IV fluids IV antibiotics Monitor closely Discharge Diagnosis Assessment: Sepsis Intussusception but CT scan repeat r/o that but dilated bowel noted and c-scope suspicious for IBD Presumed pneumonia CT scan rules out Elevated lactic acid Severe dementia Dysphagia Severe debility Plan: Dr Shoemaker to peformed C scope and awaiting biopsies PT/OT Antibiotic coverage to be maintained Monitor closely (1) Severe sepsis (2) Dementia (3) Lactic acidosis (4) Poor prognosis (5) Do not resuscitate (6) Left upper lobe pneumonia Status: Acute Qualifiers: Qualified Codes: J18.1 - Lobar pneumonia, unspecified organism (7) Intussusception Status: Acute Clinical Quality Measures DVT/VTE Risk/Contraindication: Risk Factor Score Per Nursin RFS Level Per Nursing on Admit: 4+=Very High MILAGRO ROSENBAUM DO Apr 18, 2019 17:37 POS
== END 2019-04-18 15:12 | disposition home health service (06) | DRG 871 ==
LOC: EDUNIT# 17:59 → ER 18:01 → ICU 20:24 → 4TH 04-12 12:06
PROVIDERS: ADMIT Family Medicine; ATTEND Family Medicine
PROC: 0DBN8ZX Excision of Sigmoid Colon, Via Natural or Artificial Opening Endoscopic, Diagnostic (ICD-10-PCS; principal; 2019-04-16 13:03)
DX: A41.9 Sepsis, unspecified organism (principal); R65.20 Severe sepsis without septic shock; J18.1 Lobar pneumonia, unspecified organism; E87.2 Acidosis; R64 Cachexia; E86.0 Dehydration; K55.9 Vascular disorder of intestine, unspecified; F03.90 Unspecified dementia, unspecified severity, without behavioral disturbance, psychotic disturbance, mood disturbance, and anxiety; Z66 Do not resuscitate; K62.89 Other specified diseases of anus and rectum; R91.8 Other nonspecific abnormal finding of lung field; I48.91 Unspecified atrial fibrillation; I25.10 Atherosclerotic heart disease of native coronary artery without angina pectoris; R60.0 Localized edema; R13.10 Dysphagia, unspecified; K21.9 Gastro-esophageal reflux disease without esophagitis; F32.9 Major depressive disorder, single episode, unspecified; M54.2 Cervicalgia; K64.1 Second degree hemorrhoids; Z95.810 Presence of automatic (implantable) cardiac defibrillator; Z87.891 Personal history of nicotine dependence
CPT/HCPCS: 36415; 70450; 71045; 71250; 72125; 74018; 74022; 74176; 74177; 80048; 80053; 81000; 82274; 82330; 82805; 82962; 83605; 83735; 83880; 84100; 84484; 85007; 85025; 85027; 85610; 85730; 87040; 87077; 87081; 87088; 87324; 87449; 93306; 94640; 94664; 94760

== ENCOUNTER → 2020-03-02 | Outpatient (CLI) | payer MEDICARE, MEDICAID ==
[~2020-03-02] VITALS: Ht 182 cm; Wt 82.0 kg
[~2020-03-02] MED LIST changes: +BETH25TA11 PO; +CARB1TAB19 PO; +CATHETER FLUSH 10 ML SYR IV PRN; +CELE100C84 PO; +DIVA125C10 PO; +FURO20TA4 PO; +MEMA10TA57 PO; +PANT40TA52 PO; +REGADENOSON 0.4 MG/5 ML SYR (LEXISCAN) IV ONE; +RIVA20TA PO; +RIVA4.5C13 PO; +SERT50TA9 PO; +TMSL.4C PO
[2020-03-02 09:15] VITALS: BP 134/94
--- NOTE | 2020-03-02 11:43 | Cardiology Stress Test Report ---
Stress Test Report Date of Procedure/Referring: Date of Procedure: Mar 02, 2020 PCP Mindi Valadez MD Admitting Physician Shamar Stone MD Indications: Atrial fibrillation Baseline Heart Rate: 65 Baseline Blood Pressure: Blood Pressure Systolic: 134 Blood Pressure Diastolic: 94 Baseline Vitals Vital Signs Date Time Temp Pulse Resp B/P (MAP) Pulse Ox O2 Delivery O2 Flow Rate FiO2 03/02/20 09:15 69 134/94 (107) 93 Baseline EKG: Baseline EKG: atrial fibrillation, left bundle branch block Summary After explaining the procedure to the patient, he signed a consent and then brought to the stress nuclear laboratory. Patient received 0.4 mg Lexiscan for stress test, ECG, heart rate and blood pressure were monitored continuously. Resting and stress dose of radio tracer were injected, imaging was acquired and reviewed in short axis, horizontal long axis and vertical long axis views. TID: 1.08 SSS: 3 SDS: 3 EF: 58 1. Patient tolerated Lexiscan well 2. Baseline atrial fibrillation with left bundle branch block persisted during test 3. Mild decrease uptake at the anteroapical segment, the apical segment of the anterior septum and the true apex with mild reversibility 4. Normal left ventricular size, EF 58 percent, gated images are unreliable due to underlying atrial fibrillation MINDI VALADEZ MD Mar 02, 2020 11:43
== END ==
LOC: CARD 07:45
PROVIDERS: ATTEND Internal Medicine Cardiovascular Disease
DX: I48.91 Unspecified atrial fibrillation (principal); I44.7 Left bundle-branch block, unspecified; I10 Essential (primary) hypertension; E78.2 Mixed hyperlipidemia
CPT/HCPCS: 78452; 93017; 93306; A9502

== ENCOUNTER → 2020-03-23 | Outpatient (CLI) | payer MEDICARE, MEDICAID ==
[~2020-03-23] MED LIST changes: -CATHETER FLUSH 10 ML SYR IV PRN; -REGADENOSON 0.4 MG/5 ML SYR (LEXISCAN) IV ONE
== END ==
LOC: LABNPT 05:34
PROVIDERS: ATTEND Internal Medicine Cardiovascular Disease
DX: Z01.812 Encounter for preprocedural laboratory examination (principal); Z20.828 Contact with and (suspected) exposure to other viral communicable diseases
CPT/HCPCS: 87635

== ENCOUNTER 2020-04-15 07:50 | Day surgery (SDC) | payer MEDICARE, MEDICAID ==
[~2020-04-15] VITALS: Ht 182.9 cm; Wt 82.0 kg
[2020-04-15] VITALS (10 sets, daily range): BP systolic 115–147; BP diastolic 65–86
[2020-04-15] MEDS ORDERED: NS IV 1000 ML 1,000 ML IV SCH ×2 (08:00→10:45)
[2020-04-15] MEDS ORDERED: NS IV 1000 ML 1,000 ML ONE (08:12)
[2020-04-15] MEDS ORDERED: HEParin (CATH LAB) 2,000 ML IV ONE (08:12)
[2020-04-15] MEDS ORDERED: LIDOCAINE 1% INJ 20 ML 20 ML VIAL ONE (08:12)
[2020-04-15 08:17] LABS: HEMOGLOBIN 13.5 g/dL (13.3-17.7); MEAN PLATELET VOLUME 10.4 fL (9.0-12.2); WHITE BLOOD COUNT 5.5 10^3/uL (4.3-11.0)
[2020-04-15 08:28] LABS: INR 1.1 (0.8-1.4); PROTHROMBIN TIME PATIENT 14.7 SEC (12.2-14.7)
[2020-04-15 08:35] LABS: ALANINE AMINOTRANSFERASE < 6 U/L (0-55); ALBUMIN 3.9 GM/DL (3.2-4.5); ALKALINE PHOSPHATASE 63 U/L (40-136); BILIRUBIN,TOTAL 0.5 MG/DL (0.1-1.0); BUN/CREATININE RATIO 23; CALCIUM 8.7 MG/DL (8.5-10.1); CARBON DIOXIDE 29 MMOL/L (21-32); CHLORIDE 103 MMOL/L (98-107); CHOLESTEROL 134 MG/DL (< 200); CREATININE SERUM 0.82 MG/DL (0.60-1.30); GFR ESTIMATED > 60; GLUCOSE 89 MG/DL (70-105); HDL CHOLESTEROL 25 MG/DL (40-60); POTASSIUM 4.1 MMOL/L (3.6-5.0); SODIUM 142 MMOL/L (135-145); TOTAL PROTEIN 7.1 GM/DL (6.4-8.2); TRIGLYCERIDES 129 MG/DL (<150); VLDL CHOLESTEROL 26 MG/DL (5-40)
--- NOTE | 2020-04-15 08:57 | Diagnostic Imaging Report ---
EXAMINATION: Chest radiograph, portable AP view. DATE: 04/15/2020 8:35 AM hours. INDICATION: 84-year-old male, chest pain. COMPARISON: April 18, 2019. FINDINGS: There is a left-sided cardiac assist device with leads. The leads appear intact. Stable overall appearance of the cardiomediastinal silhouette. There is no identified pneumothorax. There is no large pleural effusion. There is no identified focal airspace consolidation. IMPRESSION: No identified acute cardiopulmonary abnormality. Dictated by: Dictated on workstation # [id number]
[2020-04-15] MEDS ORDERED: MELA3TAB39 PO (09:05)
[2020-04-15] MEDS ORDERED: BETHANECHOL PO (09:05)
[2020-04-15] MEDS ORDERED: DIVA125T32 PO (09:05)
[2020-04-15] MEDS ORDERED: MIDAZOLAM 5 MG/5 ML (VERSED) VIAL ONE (09:59)
[2020-04-15] MEDS ORDERED: fentaNYL INJECTION 100 MCG/2 ML AMP ONE (09:59)
--- NOTE | 2020-04-15 10:16 | NUR ---
SPOKE WITH THE PTS DAUGHTER (SHE HELPS TAKE CARE OF HIS MEDS) AND CALLED [facility] TO COMPLETE THE MED REC FILL DATES FROM [facility]: 02-26-2020 CELECOXIB 100MG #90/90DS 03-03-2020 SERTRALINE 50MG #90/90DS 03-09-2020 XARELTO 20MG #90/90DS 03-09-2020 CARBIDOPA/LEVODOPA #270/90DS 03-16-2020 PANTOPRAZOLE 40MG #90/90DS 03-16-2020 FUROSEMIDE 20MG #90/90DS 03-19-[address] 125MG #90/30DS 03-31-2020 BETHANECHOL 25MG #120/30DS 04-07-2020 TAMSULOSIN 0.4MG #90/90DS 04-13-2020 RIVASTIGMINE 4.5MG #30/30DS 04-14-2020 MEMANTINE 10MG #60/30DS OTC MEDS: MELATONIN
--- NOTE | 2020-04-15 10:23 | Cardiac Procedure Note-CS/ASA ---
Pre-Procedure Note Pre-Op Procedure Note H&P Reviewed The H&P was reviewed, patient examined and no changes noted. Date H&P Reviewed: Apr 15, 2020 Time H&P Reviewed: 10:23 Conscious Sedation Pre-Proced Time 10:23 ASA Score 3 For ASA 3 and 4: Consider anesthesia and medical clearance. Also, for patients with a history of failed moderate sedation consider anesthesia. Airway Lungs Heart ASA score ASA 1: a normal healthy patient ASA 2: a patient with a mild systemic disease (mid diabetes, controlled hypertension, obesity x ASA 3: a patient with a severe systemic disease that limits activity (angina, COPD, prior Myocardial infarction) ASA 4: a patient with an incapacitating disease that is a constant threat to life (CHF, renal failure) ASA 5: a moribund patient not expected to survive 24 hrs. (ruptured aneurysm) ASA 6: a declared brain- patient whose organs are being harvested. For emergent operations, add the letter E after the classification Mallampati Classification Grade 3 Sedation Plan Analgesia, Amnesia, Plan communicated to team members, Discussed options with patient/fam, Discussed risks with patient/fam The patient is an appropriate candidate to undergo the planned procedure, sedation, and anesthesia. The patient immediately re-assessed prior to indication. MINDI MCKAY MD Apr 15, 2020 10:23
[2020-04-15] MEDS ORDERED: PATIENT MAY USE OWN MEDS, ALL PO SCH (10:45)
--- NOTE | 2020-04-15 10:48 | Discharge Inst-Post CATH ---
Discharge Inst-CATH/EP Problems Reviewed?: Yes Post Cardiac Cath/EP D/C Inst Follow Up/Plan Appointment with Dr Valadez's office in 4 weeks <b>CARDIAC CATH/EP PROCEDURE DISCHARGE INSTRUCTIONS</b> ACTIVITY * Go Home directly and rest. * Limit activity of the leg (or wrist if it was used) for 7 days including aerobics, swimming, jogging, bicycling, etc. * Restrict stair-climbing for 7 days if possible, if not, climb up with your non-cath leg, then bring together on the same step. * Avoid lifting, pushing, pulling or excessive movement of the affected extremity for 7 days. * Customary sexual activity may be resumed after 2 days-use caution not to use a position that strains or causes pain to the affected extremity. * No driving for 24 hours. * NO SMOKING. * Avoid straining for bowel movements for 7 days. * Gentle walking on level ground is allowed. * Returning to work will depend on the type of procedure and the results. Your doctor will discuss this with you. CALL YOUR DOCTOR FOR ANY OF THE FOLLOWING: *If bleeding from the puncture site occurs- Apply gentle pressure to site with clean cloth and call your doctor or EMS. * If a knot or lump forms under the skin, increases in size, or causes pain. * If bruising appears to be worsening or moving further down your leg instead of disappearing. * Temperature above 101 F. CARE OF YOUR GROIN INCISION; * Bruising or purple discoloration of the skin near the puncture site is common. * You may shower only, no bathtub bathing for 5 days. Be careful to avoid slipping as your leg may feel stiff. * If a closure device was used on your femoral artery, please see the attached guide regarding care of the device and your leg. * Leave dressing on FOR 24 hours. CARE OF YOUR WRIST INCISION; * Bruising or purple discoloration of the skin near the puncture site is common. * You may shower. * DO NOT submerge wrist. * Leave dressing on FOR 24 hours. MINDI VALADEZ MD Apr 15, 2020 10:48 am
--- NOTE | 2020-04-15 10:55 | Cardiac Cath Report ---
Cardiac Cath Report Physician (s)/Vice President Of Customer Service (s) Physician Pre-Procedure Diagnosis Pre-Procedure Diagnosis: coronary artery disease Post-Procedure Note Procedure Start Date: Apr 15, 2020 Name of Procedure: Left heart catheterization Findings/Procedure Note PROCEDURE NOTE: 84 years old gentleman with history of coronary artery disease, had an abnormal stress test with anterior wall ischemia, scheduled for cardiac catheterization possible PTCA. After explaining the procedure to the patient, all pros and cons were explained, all questions were answered. The patient signed the consent and then he was placed on the cardiac catheterization laboratory. Groin was prepped SL fashion local anesthesia was used. Sheath placed in the artery. Diomedes right and left catheter were used to access the coronary system. Diomedes right was advanced to the left ventricular cavity, pressure was measured left ventricular gram was done. Pullback LV to aorta was done. At the end of the procedure the sheath was removed. Closure device was deployed FINDINGS: Hemodynamics LV 121/11, end-diastolic pressure of 11 Aorta 132/64 mean of 90 ANATOMY: Left Main is calcified artery with 70 percent tubular stenosis in the left main Left Anterior Descending is small to moderate in size, patent stent in the proximal LAD, proximal to the stent there is 50-60 percent stenosis nonobstructive disease smaller artery distally Left Circumflex is moderate in size with mild disease, mild calcification. Obstructive disease Right Coronory Artery is dominant artery with mild disease nonobstructive disease LV Gram was done showing normal left ventricular size, normal systolic function estimated ejection fraction 60 percent CONCLUSION: 1. Calcified left main with 70 percent tubular stenosis. 2. Patent stent in the proximal LAD with 50-60 percent stenosis proximal to the stent, mild disease distally nonobstructive disease 3. Otherwise mild to moderate disease in the circumflex artery right coronary a rtery nonobstructive disease 4. Normal left ventricular size and systolic function estimated ejection fraction 60 percent DISCUSSION AND RECOMMENDATION: Maximizing medical therapy is recommended. Patient is 84 years old gentleman wi th history of mild dementia, I do not think that patient will tolerate bypass surgery, currently asymptomatic, no need to perform high risk stenting to the left main at this point Anesthesia Type: Conscious Sedation Estimated blood loss (mL): 25 ml Contrast Amount: 55 ml Total Radiation Dose: 404 mGy Post-Procedure Diagnosis Post-operative diagnosis: Coronary artery disease Hypertension Hyperlipidemia MINDI MCKAY MD Apr 15, 2020 10:55 am
[2020-04-15] MEDS ORDERED: ASPI-1238 PO (10:56)
[2020-04-15] MEDS ORDERED: ATOR10TA PO (10:56)
== END 2020-04-15 15:15 | disposition home or self-care (01) ==
LOC: CATH 07:50 → SDC 11:06 → CATH 15:15
PROVIDERS: ATTEND Internal Medicine Cardiovascular Disease
DX: I25.10 Atherosclerotic heart disease of native coronary artery without angina pectoris (principal); I10 Essential (primary) hypertension; E78.5 Hyperlipidemia, unspecified
CPT/HCPCS: 71045; 80053; 80061; 85027; 85610; 85730; 87081; 93458; C1760; C1894; 36415